=== PATIENT | female | born 1950 | race Caucasian/White ===

== ENCOUNTER 2021-06-17 02:20 | Outpatient (RCR) | payer MEDICARE, MEDICAID, SELFPAY ==
--- NOTE | 2021-06-17 15:30 | DI.RAD_ITS ---
Exam(s) XR PORTABLE CHEST AP POST LINE EXAM: XR PORTABLE CHEST AP POST LINE CLINICAL HISTORY: post picc. TECHNIQUE: 2D digital imaging was performed. COMPARISON: No exams were available for comparison FINDINGS: Heart size is normal. The mediastinum is not widened. Distal tip of the newly placed left PICC line is in good position in the lower SVC. Lungs are clear. No infiltrates nor pleural effusions. No ominous pulmonary nodules. No pneumothor ax. IMPRESSION: No acute pulmonary findings on this single AP portable view of the chest. Left PICC line is in good position in the lower SVC. DATA REPOSITORY: RADIATION DOSE DELIVERED: All CT scans at this facility use at least one of these dose optimization techniques: automated exposure control; mA and/or kV adjustment per patient size (includes targeted e xams where dose is matched to clinical indication); or iterative reconstruction.
== END 2021-06-23 23:59 | disposition home or self-care (01) ==
LOC: INF 02:20
PROVIDERS: Visit Provider Student in an Organized Health Care Education/Training Program
DX: K56.50 Intestinal adhesions [bands], unspecified as to partial versus complete obstruction (principal); Z45.2 Encounter for adjustment and management of vascular access device
CPT/HCPCS: 36573; 71045

== ENCOUNTER 2023-05-30 16:06 | Outpatient (CLI) | payer MEDICARE, SELFPAY ==
--- NOTE | 2023-05-30 15:42 | DI.RAD_ITS ---
Exam(s) XR STANDING ALIGNMENT EXAM: XR STANDING ALIGNMENT CLINICAL HISTORY: L knee pain TKR planning. TECHNIQUE: 2D digital imaging was performed. Standing AP views were performed from the pelvis throu gh the ankles. COMPARISON: CR XR KNEE COMPLETE MIN 4V LT from 02/14/2023 FINDINGS: BONES: No acute fracture is present. No bony destructive lesion is seen. Leg length discrepancy: There is a mild overall left leg length discrepancy with the right femoral he ad projecting a few millimeters superior to the left. JOINTS: Knees: The femoral tibial joint spaces are maintained. There is spurring from the femoral co ndyles and tibial plateaus. The ankle joints are unremarkable. The hip joints are unremarkable. SOFT TISSUE: Normal. IMPRESSION: Mild degenerative changes of both knees.. Mild overall leg length discrepancy. DATA REPOSITORY: RADIATION DOSE DELIVERED:
== END 2023-05-30 16:07 | disposition home or self-care (01) ==
LOC: DIORS 16:06
PROVIDERS: PCP Neuromusculoskeletal Medicine & OMM; Referring Provider Neuromusculoskeletal Medicine & OMM; Visit Provider Student in an Organized Health Care Education/Training Program
DX: M17.12 Unilateral primary osteoarthritis, left knee
CPT/HCPCS: 99203; 77073

== ENCOUNTER 2023-07-28 04:53 | Outpatient (CLI) | payer MEDICARE, SELFPAY ==
[2023-07-28 16:25] LABS: HCT 34.7 % (36.0-46.0); HGB 11.5 g/dL (11.2-15.7); MCH 28.9 pg (27.0-33.0); MCHC 33.1 % (32.0-36.0); MCV 87 fL (80-95); MPV 8.9 fL (8.0-11.0); Platelet Count 454 10^3/uL (130-400); RBC 3.98 10^6/uL (3.93-5.22); RDW 15.4 % (11.7-14.6); RDW-SD 49.1 fL; WBC 10.58 10^3/uL (4.4-10.8)
[2023-07-28 17:05] LABS: Anion Gap 9.1 mmol/L (3-11); BUN 12 mg/dL (7-18); CO2 26.9 mmol/L (21.0-32.0); CREATININE 0.7 mg/dL (0.55-1.02); Calcium 9.5 mg/dL (8.5-10.1); Chloride 101 mmol/L (98-107); Estimated GFR 92.41 (mL/min/1.73m2); Glucose 104 mg/dL (74-106); Potassium 3.7 mmol/L (3.5-5.1); Sodium 137 mmol/L (136-145)
== END 2023-07-28 04:54 | disposition home or self-care (01) ==
LOC: LBO 04:53
PROVIDERS: PCP Family Medicine; Visit Provider Student in an Organized Health Care Education/Training Program
DX: M17.12 Unilateral primary osteoarthritis, left knee (principal); Z01.818 Encounter for other preprocedural examination
CPT/HCPCS: 36415; 80048; 85027

== ENCOUNTER 2023-07-28 14:32 | Outpatient (CLI) | payer MEDICARE, SELFPAY ==
--- NOTE | 2023-07-28 14:51 | DI.RAD_ITS ---
Exam(s) XR KNEE LT 1V EXAM: XR KNEE LT 1V CLINICAL HISTORY: PRE OP. TECHNIQUE: 2D digital imaging was performed. COMPARISON: CR XR KNEE COMPLETE MIN 4V LT from 02/14/2023 FINDINGS: Single lateral view left knee: No fractures. There is advanced narrowing of the patellofemoral compartment. This is similar to out side images performed at [facility] on 02/14/2023. IMPRESSION: Advanced degenerative narrowing of the patellofemoral compartment. DATA REPOSITORY: RADIATION DOSE DELIVERED:
== END 2023-07-28 14:33 | disposition home or self-care (01) ==
LOC: DIORS 14:33
PROVIDERS: PCP Family Medicine; Visit Provider Physician Assistant
DX: M17.12 Unilateral primary osteoarthritis, left knee (principal)
CPT/HCPCS: 36415; 80048; 85027; 73560

== ENCOUNTER 2023-08-02 06:55 | Day surgery (SDC) | payer MEDICARE, SELFPAY ==
[2023-08-02] VITALS (10 sets, daily range): BP systolic 113–149; BP diastolic 56–87; PULSE 78–88; RESP 13–22; TEMP 36.5–37.3; O2SAT 94–100; BMI 17.9
--- NOTE | 2023-08-02 06:20 | W.ANESPRE ---
General Info Date of Service Date Performed: 08/02/23 Height: 5 ft Weight: 41.73 kg Body Mass Index (BMI): 17.9 Surgical Procedure: Operation Date: 08/02/23 09:25 Proposed Procedure Side Surgeon p Knee Total Arthroplasty, Cementless CR Left Kenrick Valencia MD Meds Allergies and Home Medications Allergies Allergy/AdvReac Type Severity Reaction Status Date / Time No Known Allergies Allergy Verified 08/02/23 07:55 Home Medication Medication Instructions Recorded albuterol sulfate 90 mcg/actuation 2 puff inhalation Q4H PRN 03/16/23 aerosol inhaler (Ventolin HFA) cyclobenzaprine 5 mg tablet 5 mg PO TID PRN 03/16/23 gabapentin 300 mg capsule 300 mg PO BID 03/16/23 levothyroxine 125 mcg capsule 125 mcg PO DAILY 03/16/23 lorazepam 2 mg tablet 2 mg PO BID PRN 03/16/23 montelukast 10 mg tablet 10 mg PO DAILY 03/16/23 (Singulair) omeprazole 40 mg capsule,delayed 40 mg PO DAILY 03/16/23 release ropinirole 2 mg tablet 4 mg PO DAILY 03/16/23 sumatriptan succinate 100 mg tablet 100 mg PO ONCE 03/16/23 trazodone 100 mg tablet 100 mg PO QHS PRN 03/16/23 vit 1 cap PO DAILY 03/16/23 C,E,zinc,Ck-zlmac-5-lutein-zeaxanthin 250 mg-2.5 mg-0.5 mg capsule ondansetron 4 mg disintegrating 4 mg PO Q6H 07/19/23 tablet acetaminophen 500 mg tablet 1,000 mg PO Q8H PRN pain #90 tabs 08/02/23 aspirin 81 mg tablet,delayed 81 mg PO BID 18 days #36 tabs 08/02/23 release celecoxib 200 mg capsule (Celebrex) 200 mg PO BID PRN #60 caps 08/02/23 dexamethasone 4 mg tablet 4 mg PO DAILY #2 tabs 08/02/23 docusate sodium 100 mg capsule 100 mg PO BID #30 caps 08/02/23 (Colace) oxycodone 5 mg tablet 5 mg PO Q4H PRN #18 tabs 08/02/23 rivaroxaban 10 mg tablet (Xarelto) 10 mg PO DAILY #12 tabs 08/02/23 Current Visit Medications: Current Medications Generic Name Dose Route Start Last Admin Trade Name Freq PRN Reason Stop Dose Admin Acetaminophen 1,000 mg 08/02/23 06:00 Acetaminophen 500 Mg Tab PO 08/02/23 16:00 PREOP BHAVYA Celecoxib 400 mg 08/02/23 06:00 Celecoxib 200 Mg Cap PO 08/02/23 16:00 PREOP BHAVYA Gabapentin 300 mg 08/02/23 06:00 Gabapentin 300 Mg Cap PO 08/02/23 16:00 PREOP BHAVYA Tranexamic Acid 1,000 mg/ 60 mls @ 360 mls/hr 08/02/23 06:00 Sodium Chloride IVPB 08/02/23 16:00 PREOP BHAVYA Ringer's Solution 1,000 mls @ 80 mls/hr 08/02/23 06:00 IV 08/31/23 23:59 INFUSION BHAVYA Cefazolin Sodium/Dextrose 2 gm in 50 mls @ 100 mls/hr 08/02/23 06:00 Ancef Duplex IVPB 08/31/23 23:59 PREOP BHAVYA IV Miscellaneous Supplies 1 each 08/02/23 06:00 Iv Access IV 08/31/23 23:59 DIRECTED BHAVYA Sodium Chloride 0 ml 08/02/23 06:00 Normal Saline Flush 10 Ml Syr IV 08/31/23 23:59 PRN PRN Sodium Chloride 0 ml 08/02/23 06:00 Normal Saline 10 Ml Vial IJ 08/31/23 23:59 DIRECTED PRN Sterile Water 0 ml 08/02/23 06:00 Water,Injection,Sterile 10 Ml Vial IJ 08/31/23 23:59 DIRECTED PRN PFSH Active Problems Active Problems: Problem Status Onset Code GERD (gastroesophageal reflux disease) K21.9 Primary osteoarthritis of left knee M17.12 Spinal cord stimulator status Z96.89 Nicotine dependence F17.200 Hypothyroidism E03.9 Essential thrombocythemia D47.3 Asthma J45.909 Medical History Medical History Acute bursitis of right shoulder Acute hip pain, bilateral Anemia Anisocytosis Anxiety Anxiety disorder Arthropathy of both sacroiliac joints Galeano involving less than 10% of body surface Chronic pain Closed fracture of left humerus of life partner Degenerative disc disease Dental caries Depression Difficulty speaking Disorder of sacroiliac joint Dizziness Dysphagia Elevated blood-pressure reading without diagnosis of hypertension Headache History of depression History of gastrointestinal disorder Hypothyroidism (acquired) Incisional hernia Insomnia Intestinal adhes w/ obst Knee pain, left Loss of appetite Low back pain Low blood pressure Migraine Migraine without aura Orthostatic hypotension Osteoporosis Perforation of tympanic membrane in adult Piriformis syndrome Piriformis syndrome of left side Postoperative hypothyroidism s/p radiation Postprocedural septic shock Radial neck fracture Restless legs Sciatica Sinusitis Smoker Sprain of left hip Sprain of left knee Thrombosis 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 Vitamin D deficiency Surgical History Surgical History H/O exploratory laparotomy pt estimates total of ~10 procedures dos 04/20/21, 07/30/21, 01/29/22 H/O ventral hernia repair dos 06/09/22 History of appendectomy History of delivery History of esophagogastroduodenoscopy (EGD) and closure of duodenal fistula (02/09/23) History of nasal septoplasty dos 09/01/04 History of splenectomy Lacerated liver History of vein stripping DOS: 05/14/16; 09/24/16 Hx of colonoscopy Hx of endoscopy 07/02/20 12/11/20 03/26/21 S/P insertion of spinal cord stimulator 02/11/17 Pt reports it was removed in 2019 Tobacco Smoking/Tobacco Use Status: Current-Occasional Tobacco Type: cigarettes Alcohol Alcohol Intake: current Alcohol intake frequency: holidays/special occasions only Substance Use Substance use: Never Substance use type: does not use Vital Signs and Lab Results Vital Signs Most Recent Vital Signs in EMR: Temp Pulse Resp BP Pulse Ox 36.6 C 88 22 149/87 H 97 08/02/23 07:44 08/02/23 07:44 08/02/23 07:44 08/02/23 07:44 08/02/23 07:44 Lab Results Blood Type / Crossmatch: No Data to Display Complete Blood Count: White Blood Count 10.58 10^3/uL (4.4-10.8) 07/28/23 16:18 Red Blood Count 3.98 10^6/uL (3.93-5.22) 07/28/23 16:18 Hemoglobin 11.5 g/dL (11.2-15.7) 07/28/23 16:18 Hematocrit 34.7 % (36.0-46.0) L 07/28/23 16:18 Platelet Count 454 10^3/uL (130-400) H 07/28/23 16:18 Complete Metabolic Panel: Sodium 137 mmol/L (136-145) 07/28/23 16:18 Potassium 3.7 mmol/L (3.5-5.1) 07/28/23 16:18 Chloride 101 mmol/L (98-107) 07/28/23 16:18 Carbon Dioxide 26.9 mmol/L (21.0-32.0) 07/28/23 16:18 BUN 12 mg/dL (7-18) 07/28/23 16:18 Creatinine 0.7 mg/dL (0.55-1.02) 07/28/23 16:18 Est GFR (CKD-EPI 2020) 92.41 (mL/min/1.73m2) 07/28/23 16:18 Calcium 9.5 mg/dL (8.5-10.1) 07/28/23 16:18 Glucose 104 mg/dL (74-106) 07/28/23 16:18 Liver Function Panel: No Data to Display Coagulation Panel: No Data to Display Cardiac Panel: No Data to Display Arterial Blood Gas: No Data to Display Venous Blood Gas: No Data to Display Pancreas Panel: No Data to Display Thyroid Panel: No Data to Display Infectious Disease: No Data to Display Blood Cultures: No Data to Display Toxicology Panel: No Data to Display Imaging and Studies Imaging and Studies Study information below may be from another EMR and interpreted by another provider. Please see original notes in EMR for more complete details. EKG Summary: 06/15: sinus Anesthesia Assessment and Plan Anesthesia History Personal History: No History of Anesthesia Complications Family History: No Family History of Anesthesia Complications Exercise Tolerance Exercise Tolerance: Metabolic Equivalents>4 Cardiac & Pulmonary Exam Cardiac Exam: Normal S1/S2 Heart Sounds Pulmonary Exam: Clear Bilateral Breath Sounds Implantable Cardiac Device Does patient have a Pacemaker or an ICD?: No Airway Exam Known Difficult Airway: No Mallampati Class: 2 Mouth Opening: Normal (> 3cm) Thyromental Distance: Greater than 3 cm Neck Range of Motion: Full ROM Neck Circumference: Normal Teeth Condition: Generalized Poor Dentition, Loose or Chipped and Removable Dentures/Plates Upper ASA Classification ASA Score: ASA 2 Emergency Case?: No NPO Status NPO Status: NPO Clears >2 hours, Solids >8 hours Anesthesia Plan Resuscitation Status: Full Code Anesthesia Technique: Spinal Anesthesia Airway Planned: Natural Airway Monitors Used: Standard Monitors Preoperative Comments:: 72 yo female for TKA. Sig PMHx: HTN, GERD (well controlled), hypothyroid, asthma, anxiety/depression, sciatica, septoplasty, neuro stimulator stimulator (was for abdominal pain, removed in 2019, was never a spinal cord stimulator), smoker, occ EtOH. Previous Anes: - removal neurostim, masked with 90 mm opa, tovar 2 grade 1.
--- NOTE | 2023-08-02 07:21 | DSE_ITS ---
Date of service: 08/02/23 Time of Service: 07:29 DS: Diagnosis Discharge Diagnosis (1) Primary osteoarthritis of left knee: Status: Chronic Discharge Plan Disposition Patient Disposition: Home Condition: Good Discharge Details Reason For Visit: Left knee DJD Attending Provider: Kenrick Valencia Primary Care Provider: GRACE ARREGUIN [place] Meds and New Rx's Prescriptions: New acetaminophen 500 mg tablet 1,000 mg PO Q8H PRN Qty: 90 0RF Rx Instructions: Take two tablets up to every 8 hours as needed for pain celecoxib [Celebrex] 200 mg capsule 200 mg PO BID PRNQty: 60 0RF Rx Instructions: Take one tablet twice daily for pain and inflammation docusate sodium [Colace] 100 mg capsule 100 mg PO BID Qty: 30 0RF dexamethasone 4 mg tablet 4 mg PO DAILY Qty: 2 0RF Rx Instructions: Take one tablet once daily for two days oxycodone 5 mg tablet 5 mg PO Q4H PRNQty: 18 0RF Rx Instructions: Take one tablet up to every 4 hours as needed for severe postoperative pain aspirin 81 mg tablet,delayed release (DR/EC) 81 mg PO BID 18 Days Qty: 36 0RF Rx Instructions: Take one tablet twice daily for a total of 18 days; start Aspirin after you have completed your Rivaroxaban Xarelto 10 mg tablet 10 mg PO DAILY Qty: 12 0RF Rx Instructions: Take one tablet daily for a total of 12 days Continued cyclobenzaprine 5 mg tablet 5 mg PO TID PRN gabapentin 300 mg capsule 300 mg PO BID levothyroxine 125 mcg capsule 125 mcg PO DAILY lorazepam 2 mg tablet 2 mg PO BID PRN omeprazole 40 mg capsule,delayed release(DR/EC) 40 mg PO DAILY vit C,E,Zn,Cd--bqf-zeax 250-2.5-0.5 mg capsule 1 cap PO DAILY ropinirole 2 mg tablet 4 mg PO DAILY montelukast [Singulair] 10 mg tablet 10 mg PO DAILY sumatriptan succinate 100 mg tablet 100 mg PO ONCE trazodone 100 mg tablet 100 mg PO QHS PRN albuterol sulfate [Ventolin HFA] 90 mcg/actuation HFA aerosol inhaler 2 puff inhalation Q4H PRN ondansetron 4 mg tablet,disintegrating 4 mg PO Q6H Discontinued acetaminophen 500 mg capsule 500 mg PO Q6H PRN tramadol 50 mg tablet 50 mg PO BID PRN Discharge Instructions Additional Instructions: Total Knee Discharge Instructions Activity: The most important activity is to walk and to work on gentle motion (both flexion and extension). You should try to take short walks a few times a day. It is important that when resting you work on keeping the knee straight. Avoid putting a pillow behind the knee as this will encourage flexion. Work on range of motion exercises as provided by Physical Therapy. - Start outpatient physical therapy within 2 weeks. - You should wear the HERBERT hose on both legs for 2 weeks. You may remove these at night. You may also use any compression sock in place of the HERBERT hose. - Utilize [employer] to review exercises, see videos on exercises and obtain basic information pertaining to your surgery and your recovery. Dressing: Remove the Gio wrap by 2 days after your surgery and put on the HERBERT stocking given to you from the hospital. Keep the surgical dressing (underneath the GIO wrap) in place for at least one week. After the first week it may be removed and replaced with light gauze and tape or nothing. The wound and dressing may get wet after 3 days but avoid soaking the dressing or otherwise it will need to be changed. Many people prefer covering the dressing with cling wrap (saran wrap) to minimize it from getting soaked. If it gets wet, just pat dry. If it starts to peel off then it will need to be changed. Medications: - You should take Tylenol and anti-inflammatory Celebrex as your primary pain control medications. If the Celebrex is too expensive or not covered, please call the office for another alternative (Advil/Ibuprofen or Naproxen/Aleve) - You have been prescribed a stronger pain medication Oxycodone for breakthrough pain, take as needed as prescribed. - You take a stomach acid reduction agent Omeprazole to help reduce stomach acid and reflux. - Continue with your baseline gabapentin - You will be taking Rivaroxaban 10 mg daily for a total of 12 days. After you complete this 12 day course you will then start to take Aspirin 81mg twice a day for DVT prevention. - You have also been prescribed Decadron to take to control post-operative nausea and pain. You will start this tomorrow. - If you have constipation you should take Colace (which has been prescribed) or Miralax (which is available [id number]). It takes most people 3-4 days to have a bowel movement. Follow-up: 2 weeks If you have any acute concerns or questions, please do not hesitate to contact the office at [phone]. You may contact Dr. Valencia with any questions after hours through the hospital at [phone] or on his cell phone at [phone]. Referrals: Kenrick Valencia MD [ [facility] STAFF PHYSICIAN] - Equipment/Supplies: Walker Activity:: Elevate Remove Dressings/Wound Care:: Do Not Remove Shower/Bathe:: Cover Diet:: As Tolerated DS: Summary Time Spent with Patient providing and/or coordinating discharge services: Less than 30 minutes Status at Discharge Functional status at discharge: uses cane/walker Overall status at discharge: patient is progressing back to baseline Mental Status: mental status grossly normal Speech and Movement: speech and movement normal Mood: congruent mood Affect: normal affect Exam Psych Mental Status: mental status grossly normal Speech and Movement: speech and movement normal Mood: congruent mood Affect: normal affect DS: Data Vitals/I&O Vitals and I&O: Intake & Output 08/01/23 08/01/23 08/02/23 11:59 23:59 11:59 Weight 91 lb 15.982 oz PFSH All Active Problems GERD (gastroesophageal reflux disease) (Chronic) Primary osteoarthritis of left knee (Chronic) Spinal cord stimulator status (Acute) Nicotine dependence (Acute) Hypothyroidism (Chronic) Essential thrombocythemia (Acute) Asthma (Chronic) Medical History Acute bursitis of right shoulder Acute hip pain, bilateral Anemia Anisocytosis Anxiety Anxiety disorder Arthropathy of both sacroiliac joints Galeano involving less than 10% of body surface Chronic pain Closed fracture of left humerus of life partner Degenerative disc disease Dental caries Depression Difficulty speaking Disorder of sacroiliac joint Dizziness Dysphagia Elevated blood-pressure reading without diagnosis of hypertension Headache History of depression History of gastrointestinal disorder Hypothyroidism (acquired) Incisional hernia Insomnia Intestinal adhes w/ obst Knee pain, left Loss of appetite Low back pain Low blood pressure Migraine Migraine without aura Orthostatic hypotension Osteoporosis Perforation of tympanic membrane in adult Piriformis syndrome Piriformis syndrome of left side Postoperative hypothyroidism s/p radiation Postprocedural septic shock Radial neck fracture Restless legs Sciatica Sinusitis Smoker Sprain of left hip Sprain of left knee Thrombosis 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 Vitamin D deficiency Surgical History H/O exploratory laparotomy pt estimates total of ~10 procedures dos 04/20/21, 07/30/21, 01/29/22 H/O ventral hernia repair dos 06/09/22 History of appendectomy History of delivery History of esophagogastroduodenoscopy (EGD) and closure of duodenal fistula (02/09/23) History of nasal septoplasty dos 09/01/04 History of splenectomy Lacerated liver History of vein stripping DOS: 05/14/16; 09/24/16 Hx of colonoscopy Hx of endoscopy 07/02/20 12/11/20 03/26/21 S/P insertion of spinal cord stimulator 02/11/17 Pt reports it was removed in 2019 Social History (Updated 07/11/23 @ 11:21 by Luna Fernández) Smoking/Tobacco Use Status: Current-Occasional Tobacco Type: cigarettes Smoking risk assessment performed?: Yes Alcohol Intake: current Alcohol Intake frequency: holidays/special occasions only Drug use: Never Substance use type: does not use Housing: house Do you feel safe at home: Yes Do you feel safe in your relationship?: Yes Time Spent with Patient Time Spent with Patient: <45 minutes Time was spent: ordering medications,tests, procedures, referring, communicating with other health hearing healthcare practitioner and care coordination
[2023-08-02] MEDS: Acetaminophen 500 MG TAB 1000 MG PO (08:00)
[2023-08-02] MEDS: Celecoxib 200 MG CAP 400 MG PO (08:00)
[2023-08-02] MEDS: Gabapentin 300 MG CAP PO (08:00)
[2023-08-02] MEDS: Lactated Ringers 1,000 ML 80 ML IV (08:15)
[2023-08-02] MEDS: ceFAZolin 2 GM/50 ML BAG IVPB (08:49)
--- NOTE | 2023-08-02 08:58 | W.ANESNERVE ---
Nerve Block Single Injection Procedure Date and Time Date Performed: 08/02/23 Procedure Start: 08:28 Location Where Procedure Performed Procedure Location: Day Surgery Unit Reason Performed: Postoperative Analgesia Requesting Provider: Kenrick Valencia Timeout Performed Timeout Performed: Yes Monitoring Used ECG, Blood Pressure and SpO2 Sterility Sterility: Hand Hygiene, Surgical Cap, Surgical Mask and Sterile Gloves Sedation Given During Procedure Sedation Given (Indicate Dose Given): Versed IV (0.5 + 0.5 + 0.5 + 0.5) Dose:: 2 mg Patient Mental Status Patient Mental Status: Sedate with meaningful communication Nerve Block 1st Nerve Block: Laterality: Left Block Type: Adductor Canal Ultrasound Image Saved?: Yes Needle / Catheter Used: 100mm SonoPlex II Local Anesthetic Bolus (Indicate Dose Given): Lidocaine used for local infiltration of skin, Injected in 3-5ml increments after negative blood aspiration and Bupivacaine 0.25% Dose:: 7 mL Additives (Indicate Dose Given): None Ultrasound: Sterile probe cover and gel used Nerve Stimulator: Supplement to Ultrasound use and No twitch or parasthesia noted < 0.5 mA Paresthesia: None Procedure Tolerated: No Complications Procedure Outcome: Successful Performed By: Bon Vizcaino 2nd Nerve Block: Laterality: Left Block Type: Other (anterior femoral cutaneous) Ultrasound Image Saved?: No Needle / Catheter Used: 100mm SonoPlex II Local Anesthetic Bolus (Indicate Dose Given): None and Bupivacaine 0.25% Dose:: 6 mL Additives (Indicate Dose Given): None Ultrasound: Sterile probe cover and gel used Nerve Stimulator: Supplement to Ultrasound use and No twitch or parasthesia noted < 0.5 mA Paresthesia: None Procedure Tolerated: No Complications Procedure Outcome: Successful Procedure Comment: same insertion as adductor. Performed By: Bon Vizcaino
--- NOTE | 2023-08-02 11:09 | W.ANESPOSTOP ---
Postoperative Evaluation Date, Time and Location Date Performed: 08/02/23 Time Performed: 11:09 Patient Location: Day Surgery Unit Vital Signs Most Recent Imported Vital Signs: Most Recent Vital Signs Temp Pulse Resp BP Pulse Ox 36.5 C 87 16 119/76 99 08/02/23 11:00 08/02/23 11:00 08/02/23 11:00 08/02/23 11:00 08/02/23 11:00 Pain Score Most Recent Pain Score: Most Recent Pain Score Pain Level 4 08/02/23 11:00 Assessment Mental Status: Awake (Alert & Oriented to Patient Baseline) Airway and Respiratory Function: Patent airway with normal (patient baseline) respiratory exam Cardiovascular Function: Hemodynamically Stable Hydration Status: Adequately Hydrated Nausea & Vomiting: No Nausea or Vomiting Pain: Pain is tolerable per patient Peripheral Nerve Block: Regional nerve block not resolved at time of post operative discharge
[2023-08-02] MEDS: oxyCODONE 5 MG TAB PO (11:17)
--- NOTE | 2023-08-02 12:30 | IN_ITS ---
Date of service: 08/02/23 Time of Service: 12:30 PT Notes Visit Reasons: Left knee DJD Physical Therapy Day Surgery Initial Evaluation Date: 08/02/2023 Referring Doctor: FIDEL Boyce PT Orders: PT CONSULT: S/p Ortho Surgery Precautions: WBAT on left LE with AD. Patient Profile/Admitting Diagnosis: Patient is a 72-year-old female with primary unilateral osteoarthritis of the left knee and status post left total knee arthroplasty on postoperative day 0. PMHX: Medical History?(Updated 07/28/23 @ 15:04 by Miranda Juárez) Acute bursitis of right shoulder Acute hip pain, bilateral Anemia Anisocytosis Anxiety Anxiety disorder Arthropathy of both sacroiliac joints Galeano involving less than 10% of body surface Chronic pain Closed fracture of left humerus of life partner Degenerative disc disease Dental caries Depression Difficulty speaking Disorder of sacroiliac joint Dizziness Dysphagia Elevated blood-pressure reading without diagnosis of hypertension Headache History of depression History of gastrointestinal disorder Hypothyroidism (acquired) Incisional hernia Insomnia Intestinal adhes w/ obst Knee pain, left Loss of appetite Low back pain Low blood pressure Migraine Migraine without aura Orthostatic hypotension Osteoporosis Perforation of tympanic membrane in adult Piriformis syndrome Piriformis syndrome of left side Postoperative hypothyroidism s/p radiationPostprocedural septic shock Radial neck fracture Restless legs Sciatica Sinusitis Smoker Sprain of left hip Sprain of left knee Thrombosis 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 Vitamin D deficiency Surgical History?(Updated 07/28/23 @ 15:03 by Miranda Juárez) H/O exploratory laparotomy pt estimates total of ~10 procedures dos 04/20/21, 07/30/21, 01/29/22 H/O ventral hernia repair dos 06/09/22 History of appendectomy History of delivery History of esophagogastroduodenoscopy (EGD) and closure of duodenal fistula (02/09/23) History of nasal septoplasty dos 09/01/04 History of splenectomy Lacerated liverHistory of vein stripping DOS: 05/14/16; 09/24/16 Hx of colonoscopy Hx of endoscopy 07/02/20 12/11/20 03/26/21 S/P insertion of spinal cord stimulator 02/11/17 Pt reports it was removed in 2019 Social History/Home Situation: Lives with daughter Mirtha in a private home with no steps to enter but has 3 steps leading onto a landing and another 8 steps that brings her to her bathroom upstairs. Independent without an assistive device indoors. Occasionally uses single-point cane for outdoors. Daughter will be with patient as she recovers at home. Equipment Owned/DME: [employer], [facility] Subjective: What a difference! Patient is amazed at how much she is able to walk without hurting. Per patient Nurse Annette patient has had 10 mg of Oxycodone prior to PT arrival. Did report pain in the inner side of knee with small range straight leg raise. Objective: General Observation: Supine in bed. Gio wraps to left LE. Cryocuff to left knee. TDS on the right leg. Daughter Mirtha present in room throughout evaluation. Mental Status: Alert and oriented x4 Pain: Denies ROM: Right Lower Extremity: Hip flexion WFL. Hip abduction WFL. Knee flexion WFL. Ankle dorsiflexion WFL. Ankle plantarflexion WFL. Left Lower Extremity: Hip flexion WFL. Hip abduction WFL. Knee flexion about 45 degrees to 90 degrees. Knee extension -45 degrees. Ankle dorsiflexion WFL. Ankle plantarflexion WFL. Strength: Right Lower Extremity: Hip flexors 5/5. Hip abductors 5/5. Knee flexors 5/5. Knee extensors 5/5. Ankle dorsiflexors 5/5. Ankle plantarflexors 5/5. Left Lower Extremity:Hip flexors 4/5. Hip abductors 4/5. Knee flexors 3-/5. Knee extensors 3-/5. Ankle dorsiflexors 5/5. Ankle plantarflexors 5/5. Sensation: Intact as to pain and light pressure in bilateral lower extremities Bed Mobility/Transfers: Supine to sit standby assist, minimal cueing to use right rail Sit to stand contact-guard assist, minimal cueing provided to use both hands to push up from edge of bed on ascent Stand to sit standby assist standby assist, minimal cueing provided to reach behind for armrests Bed to chair standby assist standby assist, minimal cueing provided to use both hands to push up from armrests Gait: Facilitated safe for safe and correct performance of level surface ambulation with patient requiring minimal verbal cueing for movement sequence, AD management, and limb advancement. No report of increased pain. No loss of balance. No shortness of breath. Good quad activation on L. Stairs: Guided patient with safe navigation of 6 x 4 inch steps and 4 x 6 inch steps while holding onto bilateral rails with step to gait pattern requiring only contact-guard assist and minimal verbal cueing for correct technique. Balance: Static Sitting: Normal Dynamic Sitting: Normal Static Standing: Fair Dynamic Standing: Fair Special Tests: Mobility Limitations Standardized Measure [facility] AM-PAC 6 clicks Basic Mobility Inpatient Short Form: Raw Score: 23 CMS Score: 11% deficit Informed Consent/Education: Patient instructed in purpose of PT consult. Packet containing TKA exercise protocol has been given to patient. THERA ACT: Patient requires the use of a front wheel walker for all mobility ADL performance to maximize independence and reduce fall risk. Trained patient with correct performance of exercises below to maximize motor control, joint flexibility, soft tissue extensibility of the L knee knee musculature. Access Code: [email or web address] URL: [email or web address] Date: 05/17/2023 Prepared by: Myla Mayo Exercises - Supine Quad Set - 1 x daily - 7 x weekly - 1 sets - 10 reps - 5 hold - Supine Heel Slide - 1 x daily - 7 x weekly - 1 sets - 10 reps - 5 hold - Supine Ankle Pumps - 1 x daily - 7 x weekly - 1 sets - 10 reps - 5 hold - Small Range Straight Leg Raise - 1 x daily - 7 x weekly - 1 sets - 10 reps - 5 hold - Seated March - 1 x daily - 7 x weekly - 1 sets - 10 reps - 5 hold Assessment: Patient requires the use of front wheeled walker for all mobility ADL performance to maximize independence and reduce fall risk. Patient presents with clinical signs and symptoms consistent with current/admitting diagnoses that have resulted to mobility limitations, gait instability, generalized weakness, and impairment of motor control as demonstrated by the following impairment level findings: 1. Decreased strength to left knee major muscle groups 2. Impaired standing balance 3. Limitation of joint range of motion in left knee Impairments are contributing to the following functional limitations: 1. Inability to safely ambulate without assistive device 2. Increase completion time for mobility ADL performance 3. Increased fall risk Patient is assessed as a 46150 moderate complexity based on the following: History: -72year-old [] with impairment level findings, functional limitations, and past medical history as indicated above Examination: Demonstrable impairment in strength, balance, and mobility level with underlying impairments and functional limitations as documented above Presentation: Evolving Decision Makin moderate complexity Goals: N/A. PT evaluation and 1-2 treatment sessions only for functional mobility training using recommended AD and for HEP instruction. Plan of Care/Treatment Plan: N/A. PT evaluation and 1-2 treatment session only for functional mobility training using recommended AD and for HEP instruction. DISCHARGE RECOMMENDATIONS: Home when medically cleared by orthopedic surgeon. Recommend outpatient PT services in order to optimize functional mobility outcomes and facilitate return to independent community ambulation without an assistive device. TREATMENT CODE/TIME: 9716 2 x 20 minutes for 1 unit, 9753 0 x 26 minutes for 2 units beginning at 12:30 PM. Thank you for the opportunity to participate in the care of this patient. Myla Mayo PT, DPT, CLT [facility] [place], [place]
--- NOTE | 2023-08-02 17:53 | ROE_ITS ---
Date of service: 08/02/23 Time of Service: 08:45 Operative Note Operative Note DATE OF PROCEDURE: 08/02/23 PRE-OP DIAGNOSIS: Left Knee Osteoarthritis POST-OP DIAGNOSIS: same PROCEDURE: Left Total Knee Replacement SURGEON: Kenrick Valencia BUSINESS OBJECTS CONSULTANT: Miranda Juárez ANESTHESIA TYPE: Spinal Refer to Anesthesia Record ESTIMATED BLOOD LOSS: 100 PATHOLOGY: none sent TOURNIQUET TIME: 0 COMPLICATIONS: None Patient was transported to: PACU Patient's condition: stable Implants: 1. Depuy Attune Cementless Cruciate Retaining Femoral Component, Size 4 2. Depuy Attune Cementless Fixed Bearing Tibial Component, Size 4 3. Depuy Attune 4x8 CR/FB Poly 4. Depuy Attune Patellar Component, Size 32 Indications: I have seen Alix in clinic for symptoms of knee arthritis, confirmed with radiographic findings. She has exhausted nonoperative methods and was having significant limitations in daily function and desired better function and less pain. I discussed the technical details of a knee replacement. I explained the risks of the procedure to include, but not limited to, bleeding, infection, pain, stiffness, fracture, damage to nerves and vessels, damage to muscles and tendons, loosening, need for repeat procedure, blood clot and cardiopulmonary demise. Despite these risks, Alix elected to proceed. Findings: There was significant signs of arthritis throughout the knee, most notably of the trochlea and patella. Procedure Description: Alix was greeted in the preoperative holding area where the correct side was identified and marked. The consent was reviewed with the patient and signed. The history and physical was updated. All questions were answered. Preoperative medications were administered: Acetaminophen 1000mg, Celebrex 400mg, and Gabapentin 300mg. An adductor canal block was then administered by the anesthesia team in the PACU. She was taken back to the operating room. A spinal anesthestic was then administered. The patient was placed into the supine position on the operating room table. A nonsterile tourniquet was placed high onto the leg but only used for cementing. Posts were placed for positioning during the procedure. All bony prominences were well padded. Prophylactic antibiotics in the form of Cefazolin were administered. 1g of Tranxemic Acid was given intravenously within 30 minutes of incision. The left leg was then prepped with Chloraprep and draped in a standard fashion with impervious stockinette. A second prep with Chloraprep was performed prior to application of Iodine impregnated skin protection. A timeout to confirm correct identity, side and site, procedure, allergies, anesthesia, and medical concerns was performed. With the knee in some flexion, a midline incision was made overlying the knee. Full thickness skin flaps were raised once the extensor mechanism was encountered. These were raised medially and laterally. Any bleeding was controlled with electrocautery. Once the extensor mechanism was fully exposed, a medial parapatellar arthrotomy was performed in a flexed position. All bleeding from the arthrotomy and the geniculate arteries was coagulated. A medial subperiosteal peel was performed with electrocautery to the midcoronal plane. The fat pad was removed while keeping the patellar tendon protected. The anterior distal femur synovium was removed for later visualization. The ACL and PCL were resected and the anterior horn of the lateral meniscus was transected. The knee was then flexed with the patella everted. Using a step drill, and based on preoperative templating, the femoral canal was entered. This was done with a step drill without any difficulty. The intramedullary distal femoral cut guide was inserted, set to a 6 degree valgus cut and 9mm cut thickness. The distal femoral cut guide was then held in position and pinned. With the soft tissues protected, the distal cut was performed. This was passed over a few times to ensure a planar cut. I then turned attention to the tibia. The extramedullary guide was placed onto the leg. The distal aspect was slid medial to adjust for position of center of ankle and stay in line with shaft of the tibia. Approximately 3-5 degrees of posterior slope was kept in the proximal cutting guide. The center of the guide was aligned with the PCL. The stylus was used to assess cut thickness. The medial side, most involved side, was set for a 4mm cut. This was then held in position and pinned into place with 2 additional pins and a cross pin for stability. The medial and lateral collateral ligaments were protected and the cut was performed. With this completed, it was assessed and noted to be of appropriate dimensions. The guide was removed. A spacer block was inserted and the knee was brought into extension. The 8mm spacer block provided full extension, without hyperextension and with stability of both the medial and lateral collateral ligaments was assessed. The pins from the femur and the tibia were then removed. The distal femur was then sized. The anterior stylus was placed onto the lateral ridge of the anterior femur. This indicated a size 4 femur. The external rotation of the guide was adjusted to 3 degrees to match the epicondylar axis, perpendicular to Myles?s line. The 4-in-1 cutting guide was the placed. The posterior medial femur cut was evaluated and appeared of good thickness. The spacer block was inserted underneath the cutting guide and stability was confirmed in 90 degrees of flexion. An vivien wing was used to confirm appropriate position of the anterior cut to avoid notching. This cutting guide was ensured to be flush on the cut surface and then pinned into place with headed pins. While protecting the soft tissues, quad tendon, and collateral ligaments, the anterior and posterior cuts were performed with a saw. The central two pins were removed and the posterior and anterior chamfers were cut next. The notch-cutting guide was placed. This was pinned to lateralize the femoral component as much as possible while keeping it flush on the cut surface. This was then pinned into position. A reciprocating saw was used to make the notch cut. A rasp smoothed the cut surfaces. The medial and lateral menisci were removed. A trial femoral component was then inserted, impacted down to the cut surfaces, and the lug holes were drilled. A provisional trial tibial component was placed and the knee was brought through range of motion. The polyethylene was trialed until there was good flexion and extension with excellent stability to the medial and lateral collaterals. The patella was tracking without thumbs. A size 8mm polyethylene component provided the best range of motion and stability with less than 2mm gapping with medial and lateral stress and full extension without significant hyperextension. The tibial cut surface was fully exposed. The tibia was then sized as a 4. The tibia had been previously marked during trialing to correspond to the center of the tibial component to help with rotation. The trial was aligned to this liya, approximately rotated to the medial 1/3rd of the tibial tubercle. The trial was pinned into place. The tibia was prepared with a reamer and a keel punch and lug holes. The knee was then brought into extension and the patella was measured as 17mm. Using the patellar clamp and cut guide, this was resected to a flat surface with at least 13mm of thickness remaining. The size 32 patella fit the best. This was oriented and then clamped into position. The lugs were drilled. The trial components were removed. The final components were opened on the back table. The periosteal and capsular tissues, especially posteriorly, around the knee were then systematically injected with a periarticular cocktail consisting of 246mg of Ropivacaine, 0.5mg of Epinephrine, 0.08mg of Clonidine, and 30mg of Ketorolac, diluted to 100cc. On the back table, with the implants opened, the cement was mixed. One batch of high viscosity cement was prepared with vacuum assistance. After the cement was ready a small amount was placed on the cut surface of the patella and the patellar button was clamped into position and held. While the cement was hardening, the cementless knee components were placed. Starting with the tibial component, the tibia was subluxed anteriorly and the lug holes of the component were lined up. The tibia was then impacted with an impactor and mallet until the tibial component was in contact with the tibia. The final polyethylene component was inserted. Then, the femoral component was inserted. The lug holes were aligned and the component was impacted into position. The knee was irrigated with Surgiphor Betadine solution. This was allowed to sit in the knee for 3 minutes and then it was irrigated out with saline. After the cement had finally cured, approximately 15min, the clamp was removed from the patella and the knee was taken through range of motion. The patella was tracking with a no-thumbs technique. The capsule was then reapproximated with a No. 1 Vicryl at multiple locations. The capsule was finally closed with a No. 2 Stratafix, barbed suture. The second dosing of 1g TXA was started. Deep tissues were then reapproximated with 0 Vicryl and 2-0 Vicryl. The skin was closed with a running 3-0 Monocryl in a subcuticular fashion. This was reinforced with skin glue. A Mepilex silver dressing was applied along with a [id number] PHILLIP wrap. A CryoCuff was applied. Alix was transferred to the hospital bed without difficulty an suffering no apparent complication. She has a good prognosis. Physical therapy will start today and without restrictions, weight-bearing as tolerated. Rivaroxaban will be used for DVT prophylaxis.
== END 2023-08-02 13:35 | disposition home or self-care (01) ==
PROVIDERS: PCP Family Medicine; Visit Provider Student in an Organized Health Care Education/Training Program
PROC: (CPT 27447; principal; 2023-08-02 09:15)
DX: M17.12 Unilateral primary osteoarthritis, left knee (principal); D64.9 Anemia, unspecified; F41.9 Anxiety disorder, unspecified; G89.29 Other chronic pain; J21.9 Acute bronchiolitis, unspecified; E03.9 Hypothyroidism, unspecified; F17.210 Nicotine dependence, cigarettes, uncomplicated; D47.3 Essential (hemorrhagic) thrombocythemia; J45.909 Unspecified asthma, uncomplicated
CPT/HCPCS: 27447; C1776; 76942; 97162; 97530; J0690; J1100; J2250; J2371; J2405

== ENCOUNTER → 2023-08-15 14:49 | Outpatient (BNVA) | payer MEDICARE, SELFPAY | PROVIDERS: PCP Family Medicine; Referring Provider Neuromusculoskeletal Medicine & OMM; Visit Provider Student in an Organized Health Care Education/Training Program | DX: Z47.1 Aftercare following joint replacement surgery (principal); Z96.652 Presence of left artificial knee joint ==

== ENCOUNTER 2023-09-12 13:44 | Outpatient (CLI) | payer MEDICARE, SELFPAY ==
--- NOTE | 2023-09-12 10:00 | DI.RAD_ITS ---
Exam(s) XR KNEE LT 1V XR STANDING ALIGNMENT EXAM: XR STANDING ALIGNMENT CLINICAL HISTORY: S/P L TKA. TECHNIQUE: 2D digital imaging was performed. Standing AP views were performed from the pelvis throu gh the ankles. COMPARISON: CR XR STANDING ALIGNMENT from 05/30/2023 CR XR KNEE LT 1V from 07/28/2023 CR XR KNEE LT 1V from 09/12/2023 FINDINGS: BONES: No acute fracture is present. No bony destructive lesion is seen. Leg length discrepancy: JOINTS: Knees: Total left knee prosthesis is unremarkable. Right knee femoral tibial joint spaces ar e maintained. The ankle joints are unremarkable. The hip joints are unremarkable. SOFT TISSUE: Anterior soft tissue swelling at the left knee. IMPRESSION: left total knee prosthesis with satisfactory alignment No significant leg length discrepancy. DATA REPOSITORY: RADIATION DOSE DELIVERED:
--- NOTE | 2023-09-12 10:00 | DI.RAD_ITS ---
Exam(s) XR HIP LT COMPLETE AP PELVIS EXAM: XR HIP LT COMPLETE AP PELVIS CLINICAL HISTORY: LEFT HIP PAIN. TECHNIQUE: 2D digital imaging was performed. Two views. COMPARISON: No exams were available for comparison FINDINGS: BONES: No acute fracture is present. No bony destructive lesion is seen. JOINTS: No dislocation present. The joint spaces are maintained. SOFT TISSUE: Normal. IMPRESSION: Unremarkable radiographs of the left hip. Unremarkable radiographs of the pelvis DATA REPOSITORY: RADIATION DOSE DELIVERED:
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
--- OUTSIDE RECORDS SUMMARY | 2023-09-12 13:47 | XMS_ITS | Continuity of Care Document ---
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 multivitamin with minerals (PreserVision AREDS Lutein oral capsule) 1 caps Oral (given by mouth) Every day Unchanged nicotine (nicotine 14 mg/ 24 hr transdermal film, extended release) 1 patch(es) Transdermal (apply on the skin) Every day Unchanged omeprazole (omeprazole 40 mg oral delayed release capsule) 1 Capsules Oral (given by mouth) Every day Unchanged ondansetron (ondansetron 4 mg oral tablet, disintegrating) 1 tab Oral (given by mouth) Every 6 hours as needed for other (see comment) as needed ?? Unchanged rOPINIRole (rOPINIRole 2 mg oral tablet) 2 tab Oral (given by mouth) Every day Unchanged sertraline (sertraline 25 mg oral tablet) TAKE ONE TABLET BY MOUTH EVERY DAY ?? Unchanged SUMAtriptan (SUMAtriptan 100 mg oral tablet) See instructions TAKE ONE TABLET BY MOUTH TWICE A DAY NEEDED FOR MIGRAINE HEADACHE ?? Unchanged traMADol (traMADol 50 mg oral tablet) 1 tab Oral (given by mouth) Every 12 hours as needed for as needed for pain Left knee pain Headache Duration: 28 Days Unchanged traZODone (traZODone 100 mg oral tablet) 1 tab Oral (given by mouth) Every night at bedtime Pharmacy Information [facility]: [address], [place] [id number] [phone] Education Materials Atelectasis, Adult Atelectasis is a collapse of air sacs in the lungs (alveoli). The condition causes all or part of alung to collapse. Atelectasis is a common problem after surgery. Its severity depends on the size of the area of lung tissue involved and on the underlying cause. When severe, it can lead to shortness of breath and heart problems. Atelectasis can develop suddenly or over a long period of time. Atelectasis that develops over a long period (chronic atelectasis) often leads to infection, scarring, and other problems. What are the causes? The following factors may make you more likely to develop this condition: ? Having had surgery on the chest or abdomen. ? An injury or health problem that makes taking deep breaths difficult or painful, such as broken ribs. ? Certain infections or diseases, such as pneumonia or cystic fibrosis. ? Taking medicines, such as sedatives, that decrease the rate of your breathing or how deeply you breathe. ? Being in bed or lying flat for long periods of time. What are the signs or symptoms? In many cases, there are no symptoms. When symptoms do occur, they may include: ? Shortness of breath. ? A cough. ? Rapid breathing. How is this diagnosed? This condition may be diagnosed based on: ? Your symptoms and medical history. ? A physical exam. ? A chest X-ray. Sometimes, other imaging tests are needed to diagnose the condition. How is this treated? Treatment for this condition depends on the cause. Treatment may involve: ? Getting out of bed and walking around. ? Coughing. Coughing helps loosen mucus in the airway. ? Deep breathing exercises. An incentive spirometer is a device that is used to help you take deep breaths. ? Positive pressure breathing. This is a form of breathing assistance in which air is forced into thelungs when you breathe in (inhale). ? Chest physiotherapy. This is a treatment to help loosen and clear mucus from the airways. It is done by clapping the chest. Follow these instructions at home: ? Take qdul-xuk-xjzbaok and prescription medicines only as told by your health care provider. ? Stay as active as possible as told by your health care provider. ? Make sure to lie on your unaffected side when you are lying down. For example, if you have atelectasis in your left lung, lie on your right side. This will help mucus drain from your airway. ? Cough and take deep breaths often. Use your incentive spirometer as directed by your health care provider. ? Do not use any products that contain nicotine or tobacco, such as cigarettes, e- cigarettes, and chewing tobacco. If you need help quitting, ask your health care provider. ? Keep all follow-up visits as told by your health care provider. This is important. Contact a health care provider if: ? You have symptoms for more than 2???3 days. Get help right away if: ? You have severe chest pain. ? You cough up blood. ? You have a fever. ? Your symptoms suddenly get worse. Summary ? Atelectasis is a collapse of air sacs in the lungs (alveoli). The condition causes all or part of alung to collapse. ? Cough and take deep breaths often. Use your incentive spirometer as directed by your health care provider. ? Stay as active as possible as told by your health care provider. ? Get help right away if your symptoms suddenly get worse. This information is not intended to replace advice given to you by your health care provider. Make sure you discuss any questions you have with your health care provider. Document Revised: 09/17/2020 Document Reviewed: 09/17/2020 [email or web address] Patient Education ?? 2021 [email or web address] Head Injury, Adult There are many types of head injuries. They can be as minor as a small bump. Some head injuries canbe worse. Worse injuries include: ? A strong hit to the head that shakes the brain back and forth, causing damage (concussion). ? A bruise (contusion) of the brain. This means there is bleeding in the brain that can cause swelling. ? A cracked skull (skull fracture). ? Bleeding in the brain that gathers, gets thick (makes a clot), and forms a bump (hematoma). Most problems from a head injury come in the first 24 hours. However, you may still have side effects up to 7???10 days after your injury. It is important to watch your condition for any changes. Youmay need to be watched in the emergency department or urgent care, or you may need to stay in the hospital. What are the causes? There are many possible causes of a head injury. A serious head injury may be caused by: ? A car accident. ? Bicycle or motorcycle accidents. ? Sports injuries. ? Falls. ? Being hit by an object. What are the signs or symptoms? Symptoms of a head injury include a bruise, bump, or bleeding where the injury happened. Other physical symptoms may include: ? Headache. ? Feeling like you may vomit (nauseous) or vomiting. ? Dizziness. ? Blurred or double vision. ? Being uncomfortable around bright lights or loud noises. ? Shaking movements that you cannot control (seizures). ? Feeling tired. ? Trouble being woken up. ? Fainting or loss of consciousness. Mental or emotional symptoms may include: ? Feeling grumpy or cranky. ? Confusion and memory problems. ? Having trouble paying attention or concentrating. ? Changes in eating or sleeping habits. ? Feeling worried or nervous (anxious). ? Feeling sad (depressed). How is this treated? Treatment for this condition depends on how severe the injury is and the type of injury you have. The main goal is to prevent problems and to allow the brain time to heal. Mild head injury If you have a mild head injury, you may be sent home, and treatment may include: ? Being watched. A responsible adult should stay with you for 24 hours after your injury and check onyou often. ? Physical rest. ? Brain rest. ? Pain medicines. Severe head injury If you have a severe head injury, treatment may include: ? Being watched closely. This includes staying in the hospital. ? Medicines to: ? Help with pain. ? Prevent seizures. ? Help with brain swelling. ? Protecting your airway and using a machine that helps you breathe (ventilator). ? Treatments to watch for and manage swelling inside the brain. ? Brain surgery. This may be needed to: ? Remove a collection of blood or blood clots. ? Stop the bleeding. ? Remove a part of the skull. This allows room for the brain to swell. Follow these instructions at home: Activity ? Rest. ? Avoid activities that are hard or tiring. ? Make sure you get enough sleep. ? Let your brain rest. Do this by limiting activities that need a lot of thought or attention, such as: ? Watching TV. ? Playing memory games and puzzles. ? Job-related work or homework. ? Working on the computer, social media, and texting. ? Avoid activities that could cause another head injury until your doctor says it is okay. This includes playing sports. Having another head injury, especially before the first one has healed, can be dangerous. ? Ask your doctor when it is safe for you to go back to your normal activities, such as work or school. Ask your doctor for a btvo-cd-osle plan for slowly going back to your normal activities. ? Ask your doctor when you can drive, ride a bicycle, or use heavy machinery. Do not do these activities if you are dizzy. Lifestyle ? Do not drink alcohol until your doctor says it is okay. ? Do not use drugs. ? If it is harder than usual to remember things, write them down. ? If you are easily distracted, try to do one thing at a time. ? Talk with family members or close friends when making important decisions. ? Tell your friends, family, a trusted co-worker, and workers compensation attorney about your injury, symptoms, and limits (restrictions). Have them watch for any problems that are new or getting worse. General instructions ? Take ucyx-fdl-trvomtl and prescription medicines only as told by your doctor. ? Have someone stay with you for 24 hours after your head injury. This person should watch you for any changes in your symptoms and be ready to get help. ? Keep all follow-up visits as told by your doctor. This is important. How is this prevented? Work on your balance and strength. This can help you avoid falls. ? Wear a seat belt when you are in a moving vehicle. ? Wear a helmet when you: ? Ride a bicycle. ? Ski. ? Do any other sport or activity that has a risk of injury. ? If you drink alcohol: ? Limit how much you use to: ? 0???1 drink a day for non women. ? 0???2 drinks a day for men. ? Be aware of how much alcohol is in your drink. In the [place] one drink equals one 12 oz bottle of beer (355 mL), one 5 oz glass of wine (148 mL), or one 1?? oz glass of hard liquor (44 mL). ? Make your home safer by: ? Getting rid of clutter from the floors and stairs. This includes things that can make you trip. ? Using grab bars in bathrooms and handrails by stairs. ? Placing non-slip mats on floors and in bathtubs. ? Putting more light in dim areas. Where to find more information ? Centers for Disease Control and Prevention: www.cdc.gov Get help right away if: ? You have: ? A very bad headache that is not helped by medicine. ? Trouble walking or weakness in your arms and legs. ? Clear or bloody fluid coming from your nose or ears. ? Changes in how you see (vision). ? A seizure. ? More confusion or more grumpy moods. ? Your symptoms get worse. ? You are sleepier than normal and have trouble staying awake. ? You lose your balance. ? The black centers of your eyes (pupils) change in size. ? Your speech is slurred. ? Your dizziness gets worse. ? You vomit. These symptoms may be an emergency. Do not wait to see if the symptoms will go away. Get medical help right away. Call your local emergency services (911 in the [place] Do not drive yourself to the hospital. Summary ? Head injuries can be as minor as a small bump. Some head injuries can be worse. ? Treatment for this condition depends on how severe the injury is and the type of injury you have. ? Have someone stay with you for 24 hours after your head injury. ? Ask your doctor when it is safe for you to go back to your normal activities, such as work or school. ? To prevent a head injury, wear a seat belt in a car, wear a helmet when you use a bicycle, limit your alcohol use, and make your home safer. This information is not intended to replace advice given to you by your health care provider. Make sure you discuss any questions you have with your health care provider. Document Revised: 08/22/2020 Document Reviewed: 08/22/2020 [employer] Patient Education ?? 2022 [email or web address] Tests Performed Medications and Immunizations Administered Given acetaminophen, 650 mg, Oral Lab Test Name Test Result Date/Time WBC 19.0 x10^3/mcL 06/17/2023 09:21 EDT RBC 4.0 x10^6/mcL 06/17/2023 09:21 EDT Hgb 11.5 g/dL 06/17/2023 09:21 EDT Hct 36.5 % 06/17/2023 09:21 EDT MCV 91.0 fL 06/17/2023 09:21 EDT MCH 28.7 pg 06/17/2023 09:21 EDT MCHC 31.5 g/dL 06/17/2023 09:21 EDT RDW-CV 14.7 % 06/17/2023 09:21 EDT Platelets 580 x10^3/mcL 06/17/2023 09:21 EDT Neutro Auto 74.4 % 06/17/2023 09:21 EDT Lymph Auto 14.2 % 06/17/2023 09:21 EDT [place] Auto 7.4 % 06/17/2023 09:21 EDT Eos, Auto 2.8 % 06/17/2023 09:21 EDT Basophil Auto 0.7 % 06/17/2023 09:21 EDT Imm Gran Auto 0.5 % 06/17/2023 09:21 EDT Neutro Absolute 14.1 x10^3/mcL 06/17/2023 09:21 EDT Sodium Level 136 mmol/L 06/17/2023 09:21 EDT Potassium Level 4.0 mmol/L 06/17/2023 09:21 EDT Chloride Level 101 mmol/L 06/17/2023 09:21 EDT CO2 31 mmol/L 06/17/2023 09:21 EDT Alk Phos 125 unit/L 06/17/2023 09:21 EDT AST 12 unit/L 06/17/2023 09:21 EDT ALT 22 unit/L 06/17/2023 09:21 EDT BUN 11 mg/dL 06/17/2023 09:21 EDT Glucose Level 93 mg/dL 06/17/2023 09:21 EDT Creatinine Level 0.79 mg/dL 06/17/2023 09:21 EDT eGFR AA 80 06/17/2023 09:21 EDT eGFR Non-AA 80 06/17/2023 09:21 EDT Calcium Level 8.6 mg/dL 06/17/2023 09:21 EDT Protein Total 6.5 g/dL 06/17/2023 09:21 EDT Albumin Level 2.9 g/dL 06/17/2023 09:21 EDT Bilirubin Total 0.3 mg/dL 06/17/2023 09:21 EDT UA Color YELLOW. 06/17/2023 10:26 EDT UA Appear CLEAR. 06/17/2023 10:26 EDT UA Glucose NEGATIVE 06/17/2023 10:26 EDT UA Bili NEGATIVE 06/17/2023 10:26 EDT UA Ketones NEGATIVE 06/17/2023 10:26 EDT UA Spec Grav 1.010 06/17/2023 10:26 EDT UA Blood NEGATIVE 06/17/2023 10:26 EDT UA pH 6.0 06/17/2023 10:26 EDT UA Protein NEGATIVE 06/17/2023 10:26 EDT UA Urobilinogen 0.2 Uro 06/17/2023 10:26 EDT UA Nitrite NEGATIVE 06/17/2023 10:26 EDT UA Leuk Est 2+ 06/17/2023 10:26 EDT UA Culture Ind?. Indicated 06/17/2023 10:26 EDT UA WBC 3-5 06/17/2023 10:26 EDT UA RBC 0-2 06/17/2023 10:26 EDT UA Squam Epithelial Few 06/17/2023 10:26 EDT UA Mucous None Seen 06/17/2023 10:26 EDT UA Bacteria Few 06/17/2023 10:26 EDT UA Gran Cast Rare 06/17/2023 10:26 EDT Patient/Picture Frame Maker Signature Patient Name:KELLEE LICONA I have received this information and my questions have been answered. Patient/Picture Frame Maker Name: Patient/Picture Frame Maker Signature: Relationship to Patient: Witness Name/Signature: Date: Electronically Signed on: 06/17/2023 11:04 EDTSigned by:ANGUS Discharge summary * Jacklyn Houston: PERFORM Event Display: Discharge Note Authored Date: * Jacklyn Houston: PERFORM Event Display: Discharge Note Authored Date: Diagnosis: 1. Head injury Comment: Diagnosis: 2. Atelectasis pulmonary Comment: Diagnosis: 3. Leukocytosis Comment: Diagnosis: 4. Dizziness Comment: Diagnosis: Fall Comment: Electronically Signed on 06/17/23 11:35 AM Jacklyn Houston Patient Care team information Care Team Personnel Name: Annette Conroy MD Position: Physician Member Role: Informed Provider Address: Address: [address] [place] [id number] [place] Name: Kane Chacon MD Position: Physician Member Role: ED Physician Address: Address: [address] [place] [address] Name: Genesis Butler Position: Nurse Member Role: ED Nurse Care Team Related Persons Name: RAFAEL ANDRES Address: Home Name: HARI LICONA Address: Home
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
--- OUTSIDE RECORDS SUMMARY | 2023-09-12 13:48 | XMS_ITS | Continuity of Care Document ---
Author Name Unknown Organization [facility] Address [address] [place] [address] Care Team Providers Care Sash Installer Name Role Phone Annette Conroy Primary Care Physician [phone] Encounter [facility] Date(s): 07/01/23 - 07/01/23 [facility] [address] [place] [address] [place] Encounter Diagnosis Screening for lung cancer(Discharge Diagnosis) - 07/01/23 Discharge Disposition: Home or Self Care Attending Physician: Annette Conroy MD Admitting Physician: Annette Conroy MD Referring Physician: Annette Conroy MD Allergies, Adverse Reactions, Alerts No Known Medication Allergies Assessment and Plan Future Appointments Future Scheduled Tests Laboratory* T3, Free [facility] 08/03/22 * Basic Metabolic Panel 05/12/23 * CBC w/ Diff 05/12/23 * PT/ INR 05/12/23 * ABO/Rh 05/12/23 * Nicotine & Metabolites, S [place] 05/11/23 * MRSA Screen Culture 05/12/23 * TSH w/ Rflx to Free T4 08/03/22 * Antibody Screen Gel 05/12/23 Radiology* MG Mammo Screening Bilateral w/ Rafi 06/08/23 * CT Brain/Head w/o Contrast 06/03/23 Immunizations Given and Recorded Vaccine Date Status [...] Recorded tetanus/diphth/pertuss (Tdap) adult/adol 11/16/11 Recorded Novel [id number], all formulation 11/25/09 Recorded pneumococcal 23-polyvalent vaccine 08/23/02 Record ed 1Result Comment: Unit: Unknown Licensed Mortgage Loan Officer: Sanofi P[employer]ur 2Result Comment: Unit: Unknown Licensed Mortgage Loan Officer: Sanofi Pasteur 3Result Comment: Unit: Unknown Licensed Mortgage Loan Officer: San[employer] P[employer] Medications acetaminophen 500 mg oral capsule 1,000 mg = 2 cap, Oral, every 6 hr Start Date: 04/08/22 Status: Ordered cyclobenzaprine 5 mg oral tablet 1 tab, Oral, TID, # 42 tab, 3 Refill(s), Pharmacy: [facility], 149, cm, 05/19/23 17:18:00EDT, Height/Length Dosing, 43.09, kg, 05/19/23 17:18:00 EDT, Weight Dosing Start Date: 06/13/23 Stop Date: 06/27/23 Status: Ordered fludrocortisone 0.1 mg oral tablet 0.5 tab, Oral, Daily, # 7 tab, 3 Refill(s), Pharmacy: [facility]58, 149, cm, 06/17/23 8:16:00 EDT, Height/Length Dosing, 42, kg, 06/17/23 8:16:00 EDT, Weight Dosing Start Date: 06/30/23 Stop Date: 07/14/23 Status: Ordered gabapentin 300 mg oral capsule 900 mg = 3 cap, Oral, BID, 3 cap bid, # 540 cap, 3 Refill(s), Pharmacy: [facility]58, 152, cm, 11/04/22 17:29:00 EST, Height/Length Dosing, 44, kg, 11/04/22 17:29:00 EST, Weight Dosing Start Date: 12/24/22 Status: Ordered levothyroxine 125 mcg (0.125 mg) oral tablet 125 mcg = 1 tab, Oral, Daily, # 90 tab, 2 Refill(s), Pharmacy: [facility]58, 152, cm, 11/04/22 17:29:00 EST, Height/Length Dosing, 44, kg, 11/04/22 17:29:00 EST, Weight Dosing Start Date: 12/24/22 Status: Ordered LORazepam 2 mg oral tablet 2 mg = 1 tab, Oral, BID, PRN as needed for anxiety, TAKE ONE TABLET BY MOUTH EVERY DAY AT BEDTIME NEEDED may take second tab mid night if needed, # 56 tab, 5 Refill(s), Pharmacy: [facility], 149, cm, 05/19/23 17:18:00 EDT, Height/Length Dosing, 43.09, kg, 05/19/23 17:18:00 EDT, Weight Dosing Start Date: 05/26/23 Status: Ordered nicotine 14 mg/24 hr transdermal film, extended release 1 patches, TD, Daily, # 14 patches, 2 Refill(s), Pharmacy: [facility], 149, cm, 05/19/23 17:18:00 EDT, Height/Length Dosing, 43.09, kg, 05/19/23 17:18:00 EDT, Weight Dosing Start Date: 06/11/23 Status: Ordered omeprazole 40 mg oral delayed release capsule 40 mg = 1 cap, Oral, Daily, # 90 cap, 3 Refill(s), Pharmacy: [facility], 152, cm, 11/04/22 17:29:00 EST, Height/Length Dosing, 44, kg, 11/04/22 17:29:00 EST, Weight Dosing Start Date: 12/24/22 Status: Ordered ondansetron 4 mg oral tablet, disintegrating 4 mg = 1 tab, Oral, every 6 hr, PRN other (see comment), as needed, # 120 tab, 1 Refill(s), Pharmacy: [facility], 152, cm, 11/04/22 17:29:00 EST, Height/Length Dosing, 44, kg, 11/04/22 17:29:00 EST, Weight Dosing Start Date: 12/24/22 Status: Ordered PreserVision AREDS Lutein oral capsule 1 caps, Oral, Daily, 0 Refill(s) Start Date: 02/02/23 Status: Ordered rOPINIRole 2 mg oral tablet 2 tab, Oral, Daily, # 60 tab, 3 Refill(s), Pharmacy: [facility], 152, cm, 01/08/23 21:48:00 EDT, Height/Length Dosing, 41, kg, 01/08/23 21:48:00 EDT, Weight Dosing Start Date: 04/13/23 Status: Ordered Singulair 10 mg oral tablet 10 mg = 1 tab, Oral, Daily, # 90 tab, 3 Refill(s), Pharmacy: [facility], 152, cm, 11/04/22 17:29:00 EST, Height/Length Dosing, 44, kg, 11/04/22 17:29:00 EST, Weight Dosing Start Date: 12/24/22 Status: Ordered SUMAtriptan 100 mg oral tablet See Instructions, TAKE ONE TABLET BY MOUTH TWICE A DAY NEEDED FOR MIGRAINE HEADACHE, # 9 tab, 1 Refill(s), Pharmacy: [facility], 152, cm, 01/08/23 21:48:00 EDT, Height/Length Dosing, 41,kg, 01/08/23 21:48:00 EDT, Weight Dosing Start Date: 03/06/23 Status: Ordered traMADol 50 mg oral tablet 50 mg = 1 tab, Oral, every 12 hr, PRN as needed for pain, # 56 tab, 0 Refill(s), Pharmacy: [facility], 149, cm, 06/17/23 8:16:00 EDT, Height/Length Dosing, 42, kg, 06/17/23 8:16:00 EDT, Weight Dosing Start Date: 07/02/23 Stop Date: 07/30/23 Status: Ordered traZODone 100 mg oral tablet 50 mg = 0.5 tab, Oral, every night at bedtime, # 90 tab, 3 Refill(s), Pharmacy: [facility], 152, cm, 11/04/22 17:29:00 EST, Height/Length [...] Completed Elective delivery 18 Completed 1Esophagogastroduodenoscopy with ydqq-rtq-hvlg esophageal dilatation 2foreign body (suture) 3Takedown Enterocutaneous [...] Use:. 1, 2 Sex Female 1less than /2 PPD 14/12 to one pack a day [id number], restared smoking 2015 1 PPD Implantable Device List Procedure Provider Procedure Date Device Type Site Repair initial incisional or ventral hernia; [facility]cible [facility] 06/09/22 Non Biological Abdomen Device Identifier Serial Number Lot or Batch Number Manufacturing Date Expiration Date Distinct Identification Code MRI Safety Implantable Status Assigning Authority Unknown Unknown [id number] Unknown 07/20/22 Unknown Unknown Active Unknown Patient Care team information Care Team Personnel Name: Annette Conroy MD Position: Physician Member Role: Informed Provider Address: Address: [address] [place] [phone] [place] Care Team Related Persons Name: RAFAEL ANDRES Address: Home Name: HARI LICONA Address: Home
--- OUTSIDE RECORDS SUMMARY | 2023-09-12 13:48 | XMS_ITS | Continuity of Care Document ---
Author Name Unknown Organization [facility] Address [address] [place] [address] Care Team Providers Care Professor Of Management Name Role Phone Annette Conroy Primary Care Physician [facility] - 06/10/23 [facility] [address] [place] [address] Discharge Disposition: Home or Self Care Attending [...] Recorded tetanus/diphth/pertuss (Tdap) adult/adol 11/16/11 Recorded Novel [id number], all formulation 11/25/09 Recorded pneumococcal 23-polyvalent vaccine 08/23/02 Record ed 1Result Comment: Unit: Unknown Job Coaching: [employer] P[employer] 2Result Comment: Unit: Unknown Job Coaching: [employer]i P[employer] 3Result Comment: Unit: Unknown Job Coaching: [employer]i P[employer] Medications acetaminophen 500 mg oral capsule 1,000 mg = 2 cap, Oral, every 6 hr Start Date: 04/08/22 Status: Ordered amitriptyline 25 mg oral tablet 25 mg = 1 tab, TAKE ONE TABLET BY MOUTH EVERY NIGHT AT BEDTIME Start Date: 05/25/23 Status: Ordered cyclobenzaprine 5 mg oral tablet 1 tab, Oral, TID, # 42 tab, 3 Refill(s), Pharmacy: [facility], 152, cm, 01/08/23 21:48:00EDT, Height/Length Dosing, 41, kg, 01/08/23 21:48:00 EDT, Weight Dosing Start Date: 04/15/23 Stop Date: 04/29/23 Status: Ordered Eliquis 2.5 mg oral tablet TAKE ONE TABLET BY MOUTH TWICE A DAY Start Date: 05/25/23 Status: Ordered gabapentin 300 mg oral capsule 900 mg = 3 cap, Oral, BID, 3 cap bid, # 540 cap, 3 Refill(s), Pharmacy: [facility], 152, cm, 11/04/22 17:29:00 EST, Height/Length [...] Daily, # 90 tab, 2 Refill(s), Pharmacy: [facility], 152, cm, 11/04/22 17:29:00 EST, Height/Length Dosing, 44, kg, 11/04/22 17:29:00 EST, Weight Dosing Start Date: 12/24/22 Status: Ordered LORazepam 2 mg oral tablet 2 mg = 1 tab, Oral, BID, PRN as needed for anxiety, TAKE ONE TABLET BY MOUTH EVERY DAY AT BEDTIME NEEDED may take second tab mid night if needed, # 56 tab, 5 Refill(s), Pharmacy: [facility], 149, cm, 05/19/23 17:18:00 EDT, Height/Length Dosing, 43.09, kg, 05/19/23 17:18:00 EDT, Weight Dosing Start Date: 05/26/23 Status: Ordered nicotine 14 mg/24 hr transdermal film, extended release 1 patches, TD, Daily, # 14 patches, 0 Refill(s), Pharmacy: [facility], 149, cm, 05/19/23 17:18:00 EDT, Height/Length Dosing, 43.09, kg, 05/19/23 17:18:00 EDT, Weight Dosing Start Date: 06/02/23 Status: Ordered nicotine 7 mg/24 hr transdermal film, extended release 1 patches, TD, Daily, # 7 patches, 0 Refill(s), Pharmacy: [facility], 149, cm, 05/19/23 17:18:00 EDT, Height/Length Dosing, 43.09, kg, 05/19/23 17:18:00 EDT, Weight Dosing Start Date: 06/02/23 Status: Ordered omeprazole 40 mg oral delayed release capsule 40 mg = 1 cap, Oral, Daily, # 90 cap, 3 Refill(s), Pharmacy: [facility], 152, cm, 11/04/22 17:29:00 EST, Height/Length Dosing, 44, kg, 11/04/22 17:29:00 EST, Weight Dosing Start Date: 12/24/22 Status: Ordered ondansetron 4 mg oral tablet, disintegrating 4 mg = 1 tab, Oral, every 6 hr, PRN other (see comment), as needed, # 120 tab, 1 Refill(s), Pharmacy: [facility], 152, cm, 11/04/22 17:29:00 EST, Height/Length Dosing, 44, kg, 11/04/22 17:29:00 EST, Weight Dosing Start Date: 12/24/22 Status: Ordered predniSONE 10 mg oral tablet 0 Refill(s) Start Date: 05/25/23 Status: Ordered PreserVision AREDS Lutein oral capsule 1 caps, Oral, Daily, 0 Refill(s) Start Date: 02/02/23 Status: Ordered rOPINIRole 2 mg oral tablet 2 tab, Oral, Daily, # 60 tab, 3 Refill(s), Pharmacy: [facility], 152, cm, 01/08/23 21:48:00 EDT, Height/Length Dosing, 41, kg, 01/08/23 21:48:00 EDT, Weight Dosing Start Date: 04/13/23 Status: Ordered sertraline 25 mg oral tablet TAKE ONE TABLET BY MOUTH EVERY DAY Start Date: 05/25/23 Status: Ordered Singulair 10 mg oral tablet 10 mg = 1 tab, Oral, Daily, # 90 tab, 3 Refill(s), Pharmacy: [facility], 152, cm, 11/04/22 17:29:00 EST, Height/Length Dosing, 44, kg, 11/04/22 17:29:00 EST, Weight Dosing Start Date: 12/24/22 Status: Ordered SUMAtriptan 100 mg oral tablet See Instructions, TAKE ONE TABLET BY MOUTH TWICE A DAY NEEDED FOR MIGRAINE HEADACHE, # 9 tab, 1 Refill(s), Pharmacy: [facility], 152, cm, 01/08/23 21:48:00 EDT, Height/Length Dosing, 41,kg, 01/08/23 21:48:00 EDT, Weight Dosing Start Date: 03/06/23 Status: Ordered traMADol 50 mg oral tablet 50 mg = 1 tab, Oral, every 12 hr, PRN as needed for pain, # 56 tab, 0 Refill(s), Pharmacy: [facility], 149, cm, 05/19/23 17:18:00 EDT, Height/Length Dosing, 43.09, kg, 05/19/23 17:18:00 EDT, Weight Dosing Start Date: 06/01/23 Stop Date: 06/29/23 Status: Ordered traZODone 100 mg oral tablet 100 mg = 1 tab, Oral, every night at bedtime, # 90 tab, 3 Refill(s), Pharmacy: [facility], 152, cm, 11/04/22 17:29:00 EST, Height/Length [...] Completed Elective delivery 18 Completed 1Esophagogastroduodenoscopy with wfde-ynl-jknv esophageal dilatation 2foreign body (suture) 3Takedown Enterocutaneous [...] incisional or ventral hernia; [facility]cible [facility] Non Biological Abdomen Device Identifier Serial Number Lot or Batch Number Manufacturing Date Expiration Date Distinct Identification Code MRI Safety Implantable Status Assigning Authority Unknown Unknown [id number] Unknown 07/20/22 Unknown Unknown Active Unknown Ambulatory cardiac rhythm monitor (Holter) study * eL Welsh: PERFORM Event Display: Holter Monitor Authored Date: [id number] KELLEE LICONA [id number] Patient placed on Holter Monitor 48 Hourson 06/10/23. Electronically Signed on 06/10/23 04:25 PM Le Welsh Patient Care team information Care Team Personnel Name: Major Hirsch DO Position: Physician Member Role: Informed Provider Address: Address: [facility] [address] [address]- [place] Name: Annette Conroy MD Position: Physician Member Role: Primary Care Physician Address: Address: [address] [place] [phone] Care Team Related Persons Name: RAFAEL ANDRES Address: Home Name: HARI LICONA Address: Home
--- OUTSIDE RECORDS SUMMARY | 2023-09-12 13:48 | XMS_ITS | Continuity of Care Document ---
Author Name Unknown Organization [facility] Address [address] [place] [address] Care Team Providers Care Equipment Associate Name Role Phone Major Hirsch Primary Care Physician [facility] - 03/11/[address] [address] Discharge Disposition: Home or Self Care Attending Physician: Major Hirsch DO Admitting Physician: Major Hirsch DO Referring Physician: Major Hirsch DO Allergies, Adverse Reactions, [...] rded tetanus/diphth/pertuss (Tdap) adult/adol 11/16/11 Recorded Novel [id number], all formulation 11/25/09 Recorded pneumococcal 23-polyvalent vaccine 08/23/02 Record ed 1Result Comment: Unit: Unknown Tip Fixer: Sanofi Pasteur 2Result Comment: Unit: Unknown Tip Fixer: Sanofi Pasteur Medications acetaminophen 500 mg oral capsule 1,000 mg = 2 cap, Oral, every 6 hr Start Date: 04/08/22 Status: Ordered cyclobenzaprine 5 mg oral tablet 1 tab, Oral, TID, # 42 tab, 3 Refill(s), Pharmacy: [facility], 152, cm, 01/08/23 21:48:00EDT, Height/Length Dosing, 41, kg, 01/08/23 21:48:00 EDT, Weight Dosing Start Date: 02/22/23 Stop Date: 03/08/23 Status: Ordered Eliquis 2.5 mg oral tablet 1 tab, Oral, BID, # 180 tab, 2 Refill(s), Pharmacy: [facility], 152, cm, 10/14/22 14:28:00 EST, Height/Length Dosing, 44, kg, 10/14/22 14:28:00 EST, Weight Dosing Start Date: 10/24/22 Status: Ordered gabapentin 300 mg oral capsule 900 mg = 3 cap, Oral, BID, 3 cap bid, # 540 cap, 3 Refill(s), Pharmacy: [facility]58, 152, cm, 11/04/22 17:29:00 EST, Height/Length Dosing, 44, kg, 11/04/22 17:29:00 EST, Weight Dosing Start Date: 12/24/22 Status: Ordered levothyroxine 125 mcg (0.125 mg) oral tablet 125 mcg = 1 tab, Oral, Daily, # 90 tab, 2 Refill(s), Pharmacy: [facility], 152, cm, 11/04/22 17:29:00 EST, Height/Length Dosing, 44, kg, 11/04/22 17:29:00 EST, Weight Dosing Start Date: 12/24/22 Status: Ordered LORazepam 2 mg oral tablet 2 mg = 1 tab, Oral, BID, PRN as needed for anxiety, TAKE ONE TABLET BY MOUTH EVERY DAY AT BEDTIME NEEDED may take second tab mid night if needed, # 56 tab, 5 Refill(s), Pharmacy: [facility]58, 152, cm, 11/04/22 17:29:00 EST, Height/Length D... Start Date: 11/05/22 Status: Ordered omeprazole 40 mg oral delayed release capsule 40 mg = 1 cap, Oral, Daily, # 90 cap, 3 Refill(s), Pharmacy: [facility], 152, cm, 11/04/22 17:29:00 EST, Height/Length Dosing, 44, kg, 11/04/22 17:29:00 EST, Weight Dosing Start Date: 12/24/22 Status: Ordered ondansetron 4 mg oral tablet, disintegrating 4 mg = 1 tab, Oral, every 6 hr, PRN other (see comment), as needed, # 120 tab, 1 Refill(s), Pharmacy: [facility]58, 152, cm, 11/04/22 17:29:00 EST, Height/Length Dosing, 44, kg, 11/04/22 17:29:00 EST, Weight Dosing Start Date: 12/24/22 Status: Ordered PreserVision AREDS Lutein oral capsule 1 caps, Oral, Daily, 0 Refill(s) Start Date: 02/02/23 Status: Ordered rOPINIRole 2 mg oral tablet 4 mg = 2 tab, Oral, Daily, # 60 tab, 3 Refill(s), Pharmacy: [facility]58, 152, cm, 11/04/2316:29:00 EST, Height/Length Dosing, 44, kg, 11/04/22 17:29:00 EST, Weight Dosing Start Date: 12/24/22 Status: Ordered Singulair 10 mg oral tablet 10 mg = 1 tab, Oral, Daily, # 90 tab, 3 Refill(s), Pharmacy: [facility]58, 152, cm, 11/04/22 17:29:00 EST, Height/Length Dosing, 44, kg, 11/04/22 17:29:00 EST, Weight Dosing Start Date: 12/24/22 Status: Ordered SUMAtriptan 100 mg oral tablet See Instructions, TAKE ONE TABLET BY MOUTH TWICE A DAY NEEDED FOR MIGRAINE HEADACHE, # 9 tab, 1 Refill(s), Pharmacy: [facility]58, 152, cm, 01/08/23 21:48:00 EDT, Height/Length Dosing, 41,kg, 01/08/23 21:48:00 EDT, Weight Dosing Start Date: 03/06/23 Status: Ordered traMADol 50 mg oral tablet 50 mg = 1 tab, Oral, every 12 hr, PRN as needed for pain, # 56 tab, 0 Refill(s), Pharmacy: [facility]58, 152, cm, 01/08/23 21:48:00 EDT, Height/Length Dosing, 41, kg, 01/08/23 21:48:00 EDT, Weight Dosing Start Date: 03/01/23 Stop Date: 03/29/23 Status: Ordered traZODone 100 mg oral tablet 100 mg = 1 tab, Oral, every night at bedtime, # 90 tab, 3 Refill(s), Pharmacy: [facility], 152, cm, 11/04/22 17:29:00 EST, Height/Length [...] Completed Elective delivery 18 Completed 1Esophagogastroduodenoscopy with mgxu-pjg-aztf esophageal dilatation 2foreign body (suture) 3Takedown Enterocutaneous [...] 18times 2 Results Laboratory List Name Date CBC w/ Diff 03/11/23 T3, Free [facility] 03/11/23 TSH w/ Rflx to Free T4 03/11/23 Automated Diff 03/11/23 Most recent to oldest [Reference Range]: 1 WBC [5.0-10.0 x10^3/mcL] 14.7 x10^3/mcL *HI* (03/11/23 10:36 AM) RBC [4.1-5.3 x10^6/mcL] 3.9 x10^6/mcL *LOW* (03/11/23 10:36 AM) Neutro Auto [40.0-75.0 %] 64.0 % (03/11/23 10:36 AM) Lymph Auto [20.0-50.0 %] 21.9 % (03/11/23 10:36 AM) Wilkinson Auto [2.0-15.0 %] 8.5 % (03/11/23 10:36 AM) Basophil Auto [0.0-1.0 %] 0.9 % (03/11/23 10:36 AM) MCV [80.0-96.0 fL] 92.3 fL (03/11/23 10:36 AM) MCHC [31.0-35.0 g/dL] 32.0 g/dL (03/11/23 10:36 AM) Hct [37.0-47.0 %] 36.2 % *LOW* (03/11/23 10:36 AM) MCH [26.0-32.0 pg] 29.6 pg (03/11/23 10:36 AM) Neutro Absolute 9.4 x10^3/mcL *NA* (03/11/23 10:36 AM) Hgb [12.0-16.0 g/dL] 11.6 g/dL *LOW* (03/11/23 10:36 AM) Platelets [130-450 x10^3/mcL] 528 x10^3/ mcL *HI* (03/11/23 10:36 AM) TSH [0.358-3.740 mcIntlUnit/mL] 0.411 mc IntlUnit/mL (03/11/23 10:36 AM) RDW-CV [11.5-14.5 %] 14.2 % (03/11/23 10:36 AM) Imm Gran Auto [0.0-0.9 %] 0.3 % (03/11/23 10:36 AM) T3, Free [facility] [2.8-5.3 pg/mL] 4.0 pg/mL 1 *NA* (03/11/23 10:36 AM) Eos, Auto [1.0-6.0 %] 4.4 % (03/11/23 10:36 AM) 1Result Comment: Test performed [place] [address] Social History Social History Type Response Tobacco Current everyday tob acco user Tobacco Use:. 1 Sex Female 08/25 to one pack a day [id number], restared smoking 2015 10 PPD Implantable Device List Procedure Provider Procedure Date Device Type Site Repair initial incisional or ventral hernia; reducible Erasto [facility] Non Biological Abdomen Device Identifier Serial Number Lot or Batch Number Manufacturing Date Expiration Date Distinct Identification Code MRI Safety Implantable Status Assigning Authority Unknown Unknown [id number] Unknown 07/20/22 Unknown Unknown Active Unknown Patient Care team information Care Team Personnel Name: Major Hirsch DO Position: Physician Member Role: Primary Care Physician Address: Address: [place] [facility] [id number] [place] [address] Name: Shan Short MD Position: Physician Member Role: Informed Provider Address: Address: [facility] [address] [place] [phone] [place] Care Team Related Persons Name: RAFAEL ANDRES Name: HARI LICONA
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
--- OUTSIDE RECORDS SUMMARY | 2023-09-12 13:48 | XMS_ITS | Continuity of Care Document ---
Author Name Unknown Organization [facility] Address [address] [place] [address] Care Team Providers Care [place] Farmer Name Role Phone Major Hirsch Primary Care Physician [facility] - 05/19/[address] [address] Encounter Diagnosis Left knee pain(Discharge Diagnosis) - 05/19/23 Discharge Disposition: Home or Self Care Attending Physician: Gabriela Nash MD Admitting Physician: Gabriela Nash MD Allergies, Adverse Reactions, Alerts No Known Medication Allergies Assessment and Plan Extracted from: Title:Clinical Document Author:Dany Chacon Date:05/19/23 Diagnosis: 1. Left knee pain Comment: Diagnosis: Knee pain-swelling Comment: Future Appointments Future Scheduled Tests Laboratory* T3, Free [facility] 08/03/22 * Basic Metabolic Panel 05/12/23 * CBC w/ Diff 05/12/23 * PT/ INR 05/12/23 * ABO/Rh 05/12/23 * Nicotine & Metabolites, [place] 05/11/23 * MRSA Screen Culture 05/12/23 * TSH w/ Rflx to Free [facility] 08/03/22 * Antibody Screen Gel 05/12/23 Functional Status 05/19/23 Family Member Travel History No recent t [...] rded tetanus/diphth/pertuss (Tdap) adult/adol 11/16/11 Recorded Novel [id number], all formulation 11/25/09 Recorded pneumococcal 23-polyvalent vaccine 08/23/02 Record ed 1Result Comment: Unit: Unknown 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: [employer] 2Result Comment: Unit: Unknown 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: [employer] Medications acetaminophen 500 mg oral capsule 1,000 mg = 2 cap, Oral, every 6 hr Start Date: 04/08/22 Status: Ordered cyclobenzaprine 5 mg oral tablet 1 tab, Oral, TID, # 42 tab, 3 Refill(s), Pharmacy: [email or web address], 152, cm, 01/08/23 21:48:00EDT, Height/Length Dosing, 41, kg, 01/08/23 21:48:00 EDT, Weight Dosing Start Date: 04/15/23 Stop Date: 04/29/23 Status: Ordered gabapentin 300 mg oral capsule 900 mg = 3 cap, Oral, BID, 3 cap bid, # 540 cap, 3 Refill(s), Pharmacy: [email or web address], 152, cm, 11/04/22 17:29:00 EST, Height/Length Dosing, 44, kg, 11/04/22 17:29:00 EST, Weight Dosing Start Date: 12/24/22 Status: Ordered HYDROcodone-acetaminophen 5 mg-300 mg oral tablet 1 tab, Oral, every 6 hr, PRN as needed for pain, X 3 days, # 5 tab, 0 Refill(s), 05/22/23 19:13:00 EDT, Pharmacy: [email or web address], 149, cm, 05/19/23 17:18:00 EDT, Height/Length Dosing, 43.09, kg, 05/19/23 17:18:00 EDT, Weight Dosing Start Date: 05/19/23 Stop Date: 05/22/23 Status: Ordered levothyroxine 125 mcg (0.125 mg) oral tablet 125 mcg = 1 tab, Oral, Daily, # 90 tab, 2 Refill(s), Pharmacy: [email or web address], 152, cm, 11/04/22 17:29:00 EST, Height/Length Dosing, 44, kg, 11/04/22 17:29:00 EST, Weight Dosing Start Date: 12/24/22 Status: Ordered LORazepam 2 mg oral tablet 2 mg = 1 tab, Oral, BID, PRN as needed for anxiety, TAKE ONE TABLET BY MOUTH EVERY DAY AT BEDTIME NEEDED may take second tab mid night if needed, # 56 tab, 5 Refill(s), Pharmacy: [email or web address], 152, cm, 11/04/22 17:29:00 EST, Height/Length D... Start Date: 11/05/22 Status: Ordered omeprazole 40 mg oral delayed release capsule 40 mg = 1 cap, Oral, Daily, # 90 cap, 3 Refill(s), Pharmacy: [email or web address], 152, cm, 11/04/22 17:29:00 EST, Height/Length Dosing, 44, kg, 11/04/22 17:29:00 EST, Weight Dosing Start Date: 12/24/22 Status: Ordered ondansetron 4 mg oral tablet, disintegrating 4 mg = 1 tab, Oral, every 6 hr, PRN other (see comment), as needed, # 120 tab, 1 Refill(s), Pharmacy: [email or web address], 152, cm, 11/04/22 17:29:00 EST, Height/Length Dosing, 44, kg, 11/04/22 17:29:00 EST, Weight Dosing Start Date: 12/24/22 Status: Ordered PreserVision AREDS Lutein oral capsule 1 caps, Oral, Daily, 0 Refill(s) Start Date: 02/02/23 Status: Ordered rOPINIRole 2 mg oral tablet 2 tab, Oral, Daily, # 60 tab, 3 Refill(s), Pharmacy: [email or web address], 152, cm, 01/08/23 21:48:00 EDT, Height/Length Dosing, 41, kg, 01/08/23 21:48:00 EDT, Weight Dosing Start Date: 04/13/23 Status: Ordered Singulair 10 mg oral tablet 10 mg = 1 tab, Oral, Daily, # 90 tab, 3 Refill(s), Pharmacy: [email or web address], 152, cm, 11/04/22 17:29:00 EST, Height/Length Dosing, 44, kg, 11/04/22 17:29:00 EST, Weight Dosing Start Date: 12/24/22 Status: Ordered SUMAtriptan 100 mg oral tablet See Instructions, TAKE ONE TABLET BY MOUTH TWICE A DAY NEEDED FOR MIGRAINE HEADACHE, # 9 tab, 1 Refill(s), Pharmacy: [email or web address], 152, cm, 01/08/23 21:48:00 EDT, Height/Length Dosing, 41,kg, 01/08/23 21:48:00 EDT, Weight Dosing Start Date: 03/06/23 Status: Ordered traMADol 50 mg oral tablet 50 mg = 1 tab, Oral, every 12 hr, PRN as needed for pain, # 56 tab, 0 Refill(s), Pharmacy: [email or web address], 152, cm, 04/27/23 18:20:00 EDT, Height/Length Dosing, 41, kg, 04/27/23 18:20:00 EDT, Weight Dosing Start Date: 04/29/23 Stop Date: 05/27/23 Status: Ordered traZODone 100 mg oral tablet 100 mg = 1 tab, Oral, every night at bedtime, # 90 tab, 3 Refill(s), Pharmacy: [email or web address], 152, cm, 11/04/22 17:29:00 EST, Height/Length [...] Completed Elective delivery 18 Completed 1Esophagogastroduodenoscopy with lozo-ugs-smxh esophageal dilatation 2foreign body (suture) 3Takedown Enterocutaneous [...] Temperature Temporal Artery [36-38 Deg C ] 35.6 Deg C *LOW* (05/19/23 5:12 PM) Peripheral Pulse Rate [60-100 bpm] 95 bp m (05/19/23 5:12 PM) Respiratory Rate [12-24 br/min] 18 br/mi n (05/19/23 5:12 PM) Blood Pressure [90-140/60-90 mmHg] 126/7 8mmHg (05/19/23 5:12 PM) Weight Dosing 43.09 kg (05/19/23 5:18 PM) Weight Estimated 43.09 kg (05/19/23 5:12 PM) Height/Length Dosing 149.000 cm (05/19/23 5:18 PM) Height/Length Estimated 149.000 cm (05/19/23 5:12 PM) Social History Social History Type Response Tobacco Current everyday tob acco user Tobacco Use:. Sex Female Implantable Device List Procedure Provider Procedure Date Device Type Site Repair initial incisional or ventral hernia; [facility] Non Biological Abdomen Device Identifier Serial Number Lot or Batch Number Manufacturing Date Expiration Date Distinct Identification Code MRI Safety Implantable Status Assigning Authority Unknown Unknown [id number] Unknown 07/20/22 Unknown Unknown Active Unknown Hospital Discharge Instructions Patient Education 05/19/2023 18:11:15 Acute Knee Pain, Adult Acute Knee Pain, Adult Acute knee pain is sudden and may be caused by damage, swelling, or irritation of the muscles and tissues that support the knee. Pain may result from: ??? A fall. ??? An injury to the knee from twisting motions. ??? A hit to the knee. ??? Infection. Acute knee pain may go away on its own with time and rest. If it does not, your health care provider may order tests to find the cause of the pain. These may include: ??? Imaging tests, such as an X-ray, MRI, CT scan, or ultrasound. ??? Joint aspiration. In this test, fluid is removed from the knee and evaluated. ??? Arthroscopy. In this test, a lighted tube is inserted into the knee and an image is projected onto a TV screen. ??? Biopsy. In this test, a sample of tissue is removed from the body and studied under a microscope. Follow these instructions at home: If you have a knee sleeve or brace: ??? Wear the knee sleeve or brace as told by your health care provider. Remove it only as told by your health care provider. ??? Loosen it if your toes tingle, become numb, or turn cold and blue. ??? Keep it clean. ??? If the knee sleeve or brace is not waterproof: ??? Do not let it get wet. ??? Cover it with a watertight covering when you take a bath or shower. Activity ??? Rest your knee. ??? Do not do things that cause pain or make pain worse. ??? Avoid high-impact activities or exercises, such as running, jumping rope, or doing jumping jacks. ??? Work with a physical therapist to make a safe exercise program, as recommended by your health care provider. Do exercises as told by your physical therapist. Managing pain, stiffness, and swelling ??? If directed, put ice on the affected knee. To do this: ??? If you have a removable knee sleeve or brace, remove it as told by your health care provider. ??? Put ice in a plastic bag. ??? Place a towel between your skin and the bag. ??? Leave the ice on for 20 minutes, 2???3 times a day. ??? Remove the ice if your skin turns bright red. This is very important. If you cannot feel pain, heat, or cold, you have a greater risk of damage to the area. ??? If directed, use an elastic bandage to put pressure (compression) on your injured knee. This may control swelling, give support, and help with discomfort. ??? Raise (elevate) your knee above the level of your heart while you are sitting or lying down. ??? Sleep with a pillow under your knee. General instructions ??? Take mmjf-gew-pbejocn and prescription medicines only as told by your health care provider. ??? Do not use any products that contain nicotine or tobacco, such as cigarettes, e-cigarettes, andchewing tobacco. If you need help quitting, ask your health care provider. ??? If you are overweight, work with your health care provider and a dietitian to set a weight-lossgoal that is healthy and reasonable for you. Extra weight can put pressure on your knee. ??? Pay attention to any changes in your symptoms. ??? Keep all follow-up visits. This is important. Contact a health care provider if: ??? Your knee pain continues, changes, or gets worse. ??? You have a fever along with knee pain. ??? Your knee feels warm to the touch or is red. ??? Your knee jeffrey or locks up. Get help right away if: ??? Your knee swells, and the swelling becomes worse. ??? You cannot move your knee. ??? You have severe pain in your knee that cannot be managed with pain medicine. Summary ??? Acute knee pain can be caused by a fall, an injury, an infection, or damage, swelling, or irritation of the tissues that support your knee. ??? Your health care provider may perform tests to find out the cause of the pain. ??? Pay attention to any changes in your symptoms. Relieve your pain with rest, medicines, light activity, and the use of ice. ??? Get help right away if your knee swells, you cannot move your knee, or you have severe pain that cannot be managed with medicine. This information is not intended to replace advice given to you by your health care provider. Make sure you discuss any questions you have with your health care provider. Document Revised: 03/25/2021 Document Reviewed: 03/25/2021 [employer] Patient Education ?? 2022 [employer]. Follow Up Care 05/19/2023 17:12:42 With:Major Hirsch DO Address: [place] [address]- When:1 week Emergency department Discharge instructions * Enrique Landa MD: PERFORM Event Display: ED Discharge Information Authored Date: [id number] KELLEE LICONA :1950 Age:72 years Sex:Female Visit Date:05/19/2023 Primary Care Physician: Major Hirsch DO Discharge Instructions We would like to thank you for allowing us to assist you with your healthcare needs. The following includes patient education materials and information regarding your injury/illness. Diagnosis from Today's Visit Left knee pain Discharge Vitals Temperature??(Temporal Artery) 96.1 ??F (35.6 ??C) Heart Rate??(Peripheral) 95 Respiratory Rate?? 18 Blood Pressure?? 126/78?? Height?? 58.66 in (149.000 cm) Weight??(Estimated) 95.01 lb (43.09 kg) Allergies No Known Medication Allergies What to Do Next Instructions from Your Care Team Thankfully your x-ray tonight did not show any new broken bones or dislocations. ??The radiologist did not see??any broken bones, dislocations, or significant fluid in the knee. ??At this time, without any signs of??knee infection.?We would recommend continuing??with Tylenol, ibuprofen,??tramadol, and ice. ??You may use the prescribed [place] very sparingly for any breakthrough pain. ??Please follow-up with your primary care doctor??and/or your orthopedist in the next week or so for recheck. ??Return to the emergency department if you have any new or concerning symptoms including any fever, redness around the knee, worsening swelling,??pain with??movement when you are not walking on it,??or if you have any other symptoms or concerns. You Need to Schedule the Following Appointments Follow Up with??Major Hirsch DO When:??Within 1 week Where: [facility] [address] [address]- Upcoming Scheduled Appointments Tuesday 9:45 AM EDT ?? You were treated today [...] Much When Why Instructions Next Dose New HYDROcodone-acetaminophen (HYDROcodone-acetaminophen 5 mg-300 mg oral tablet) 1 tab Oral (given by mouth) Every 6 hours as needed for as needed for pain Left knee pain Duration: 3 Days Pickup at [facility] Unchanged acetaminophen (acetaminophen 500 mg oral [...] mouth) Every night at bedtime Pharmacy Information [facility]: [address], [place] [id number] [phone] Education Materials Acute Knee Pain, Adult Acute knee pain is sudden and may be caused by damage, swelling, or irritation of the muscles and tissues that support the knee. Pain may result from: ? A fall. ? An injury to the knee from twisting motions. ? A hit to the knee. ? Infection. Acute knee pain may go away on its own with time and rest. If it does not, your health care provider may order tests to find the cause of the pain. These may include: ? Imaging tests, such as an X-ray, MRI, CT scan, or ultrasound. ? Joint aspiration. In this test, fluid is removed from the knee and evaluated. ? Arthroscopy. In this test, a lighted tube is inserted into the knee and an image is projected onto a TV screen. ? Biopsy. In this test, a sample of tissue is removed from the body and studied under a microscope. Follow these instructions at home: If you have a knee sleeve or brace: ? Wear the knee sleeve or brace as told by your health care provider. Remove it only as told by your health care provider. ? Loosen it if your toes tingle, become numb, or turn cold and blue. ? Keep it clean. ? If the knee sleeve or brace is not waterproof: ? Do not let it get wet. ? Cover it with a watertight covering when you take a bath or shower. Activity ? Rest your knee. ? Do not do things that cause pain or make pain worse. ? Avoid high-impact activities or exercises, such as running, jumping rope, or doing jumping jacks. ? Work with a physical therapist to make a safe exercise program, as recommended by your health care provider. Do exercises as told by your physical therapist. Managing pain, stiffness, and swelling ? If directed, put ice on the affected knee. To do this: ? If you have a removable knee sleeve or brace, remove it as told by your health care provider. ? Put ice in a plastic bag. ? Place a towel between your skin and the bag. ? Leave the ice on for 20 minutes, 2???3 times a day. ? Remove the ice if your skin turns bright red. This is very important. If you cannot feel pain, heat, or cold, you have a greater risk of damage to the area. ? If directed, use an elastic bandage to put pressure (compression) on your injured knee. This may control swelling, give support, and help with discomfort. ? Raise (elevate) your knee above the level of your heart while you are sitting or lying down. ? Sleep with a pillow under your knee. General instructions ? Take omhj-gcg-btgdwsv and prescription medicines only as told by your health care provider. ? Do not use any products that contain nicotine or tobacco, such as cigarettes, e- cigarettes, and chewing tobacco. If you need help quitting, ask your health care provider. ? If you are overweight, work with your health care provider and a dietitian to set a weight-loss goal that is healthy and reasonable for you. Extra weight can put pressure on your knee. ? Pay attention to any changes in your symptoms. ? Keep all follow-up visits. This is important. Contact a health care provider if: ? Your knee pain continues, changes, or gets worse. ? You have a fever along with knee pain. ? Your knee feels warm to the touch or is red. ? Your knee jeffrey or locks up. Get help right away if: ? Your knee swells, and the swelling becomes worse. ? You cannot move your knee. ? You have severe pain in your knee that cannot be managed with pain medicine. Summary ? Acute knee pain can be caused by a fall, an injury, an infection, or damage, swelling, or irritation of the tissues that support your knee. ? Your health care provider may perform tests to find out the cause of the pain. ? Pay attention to any changes in your symptoms. Relieve your pain with rest, medicines, light activity, and the use of ice. ? Get help right away if your knee swells, you cannot move your knee, or you have severe pain that cannot be managed with medicine. This information is not intended to replace advice given to you by your health care provider. Make sure you discuss any questions you have with your health care provider. Document Revised: 03/25/2021 Document Reviewed: 03/25/2021 [employer] Patient Education ?? 2022 [employer] Tests Performed Medications and Immunizations Administered Given HYDROcodone-acetaminophen 5 mg-325 mg oral tablet, 1 tab, Oral Patient/Terra Cotta Setter Signature Patient Name:KELLEE LICONA I have received this information and my questions have been answered. Patient/Terra Cotta Setter Name: Patient/Terra Cotta Setter Signature: Relationship to Patient: Witness Name/Signature: Date: Electronically Signed on: 05/19/2023 19:14 EDTSigned by:IZAIAH Emergency department Note * Dany Chacon: PERFORM Event Display: ED Notes Authored Date: Discharge summary * Dany Chacon: PERFORM Event Display: Discharge Note Authored Date: * Dany Chacon: PERFORM Event Display: Discharge Note Authored Date: Diagnosis: 1. Left knee pain Comment: Diagnosis: Knee pain-swelling Comment: Electronically Signed on 05/19/23 07:51 PM Dany Chacon Patient Care team information Care Team Personnel Name: Major Hirsch DO Position: Physician Member Role: Informed Provider Address: Address: [facility] [address] [address]- [place] Name: Rufus Barker RN Position: Nurse Member Role: ED Nurse Name: Enrique Landa MD Position: Physician Member Role: ED Physician Address: Address: [address] [place] [address] [place] [address] [place] Care Team Related Persons Name: RAFAEL ANDRES Name: HARI LICONA
--- OUTSIDE RECORDS SUMMARY | 2023-09-12 13:48 | XMS_ITS | Continuity of Care Document ---
Author Name Unknown Organization [facility] Address [address] [place] [address] Care Team Providers Care Pourer Crane Ladle Name Role Phone Major Hirsch Primary Care Physician [facility] Date(s): 11/04/22 - 11/04/[address] [id number] Discharge Disposition: Home or Self Care Attending Physician: Gabriela Nash MD Admitting Physician: Gabriela Nash MD Allergies, Adverse Reactions, Alerts No Known Medication Allergies Assessment and Plan Future Appointments Future Scheduled Tests Laboratory* T3, Free [facility] 11/02/22 * T3, [facility] 08/03/22 * TSH w/ Rflx to Free [facility] 11/02/22 * TSH w/ Rflx to Free [facility] 08/03/22 Functional Status 11/04/22 Family Member Travel History No recent t [...] rded tetanus/diphth/pertuss (Tdap) adult/adol 11/16/11 Recorded Novel [id number], all formulation 11/25/09 Recorded pneumococcal 23-polyvalent vaccine 08/23/02 Record ed 1Result Comment: Unit: Unknown Campaign 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: [employer] 2Result Comment: Unit: Unknown Campaign Specialist: [employer] Medications acetaminophen 500 mg oral capsule 1,000 mg = 2 cap, Oral, every 6 hr Start Date: 04/08/22 Status: Ordered amitriptyline 25 mg oral tablet 50 mg = 2 tab, Oral, every day at bedtime, # 60 tab, 2 Refill(s), Pharmacy: [facility], 152, cm, 10/14/22 14:28:00 EST, Height/Length Dosing, 44, kg, 10/14/22 14:28:00 EST, Weight Dosing Start Date: 10/29/22 Status: Ordered cyclobenzaprine 5 mg oral tablet 1 tab, Oral, TID, # 42 tab, 1 Refill(s), Pharmacy: [facility], 152, cm, 10/14/22 14:28:00EST, Height/Length Dosing, 44, kg, 10/14/22 14:28:00 EST, Weight Dosing Start Date: 10/28/22 Stop Date: 11/11/22 Status: Ordered Eliquis 2.5 mg oral tablet 1 tab, Oral, BID, # 180 tab, 2 Refill(s), Pharmacy: [facility], 152, cm, 10/14/22 14:28:00 EST, Height/Length Dosing, 44, kg, 10/14/22 14:28:00 EST, Weight Dosing Start Date: 10/24/22 Status: Ordered gabapentin 300 mg oral capsule 300 mg = 1 cap, Oral, TID, 1-2 caps tid, # 270 cap, 2 Refill(s), Pharmacy: [facility], 152, cm, 10/14/22 14:28:00 EST, Height/Length Dosing, 44, kg, 10/14/22 14:28:00 EST, Weight Dosing Start Date: 10/26/22 Status: Ordered levothyroxine 125 mcg (0.125 mg) oral tablet 125 mcg = 1 tab, Oral, Daily, # 60 tab, 2 Refill(s), Pharmacy: [facility], 152.4, cm, 06/09/22 20:01:00 EDT, Height/Length Dosing, 46.2, kg, 06/09/22 20:01:00 EDT, Weight Dosing Start Date: 09/23/22 Status: Ordered LORazepam 2 mg oral tablet 2 mg = 1 tab, Oral, every night at bedtime, PRN as needed for anxiety, TAKE ONE TABLET BY MOUTH EVERY DAY AT BEDTIME NEEDED, # 28 tab, 5 Refill(s), Pharmacy: [facility], 152.4, cm, 06/09/22 20:01:00 EDT, Height/Length Dosing, 46.2, kg, 08... Start Date: 09/15/22 Status: Ordered omeprazole 40 mg oral delayed release capsule 40 mg = 1 cap, Oral, Daily, # 90 cap, 3 Refill(s), Pharmacy: [facility], 152.4, cm, 06/09/22 20:01:00 EDT, Height/Length Dosing, 46.2, kg, 06/09/22 20:01:00 EDT, Weight Dosing Start Date: 07/28/22 Status: Ordered ondansetron 4 mg oral tablet, disintegrating 4 mg = 1 tab, Oral, every 6 hr, PRN other (see comment), as needed Start Date: 04/08/22 Status: Ordered oxyCODONE 10 mg oral tablet 10 mg = 1 tab, Oral, BID, PRN as needed, # 14 tab, 0 Refill(s), Pharmacy: [facility], 152, cm, 10/14/22 14:28:00 EST, Height/Length Dosing, 44, kg, 10/14/22 14:28:00 EST, Weight Dosing Start Date: 10/21/22 Stop Date: 10/28/22 Status: Ordered oxyCODONE 5 mg oral tablet See Instructions, 1-2 po every 8 hours prn migraine., # 5 tab, 0 Refill(s), Pharmacy: [facility], 152, cm, 10/14/22 14:28:00 EST, Height/Length Dosing, 44, kg, 10/14/22 14:28:00 EST, WeightDosing Start Date: 10/29/22 Status: Ordered predniSONE 10 mg oral tablet See Instruction, Oral, Daily, 4 tabs daily x3 days, 3 tabs daily x3 days, 2 tabs daily x3 days, 1 tab daily x3 days, # 30 tab, 0 Refill(s), Pharmacy: [facility], 152, cm, 10/14/22 14:28:00 EST, Height/Length Dosing, 44, kg, 10/14/22 14:28:00... Start Date: 10/29/22 Status: Ordered rOPINIRole 2 mg oral tablet See Instructions, TAKE TWO TABLETS BY MOUTH EVERY DAY AT BEDTIME, # 120 tab, 0 Refill(s), Pharmacy:[facility], 152.4, cm, 06/09/22 20:01:00 EDT, Height/Length Dosing, 46.2, kg, 06/09/22 20:01:00 EDT, Weight Dosing Start Date: 08/09/22 Status: Ordered Singulair 10 mg oral tablet 10 mg = 1 tab, Oral, Daily Start Date: 04/08/22 Status: Ordered SUMAtriptan 100 mg oral tablet 100 mg = 1 tab, Oral, BID, PRN as needed for migraine headache, TAKE ONE TABLET BY MOUTH TWICE A DAY NEEDED FOR 30 DAYS, # 9 tab, 1 Refill(s), Pharmacy: [facility], 152.4, cm, 06/09/22 20:01:00 EDT, Height/Length Dosing, 46.2, kg, ... Start Date: 09/23/22 Status: Ordered Ventolin HFA 90 mcg/inh inhalation aerosol 2 puffs, Inhale, every 4 hr, 0 Refill(s) Start Date: 04/07/22 Status: Ordered Mental Status 11/04/22 Eye Opening Response [place] Spontaneous ly Best Verbal Response Genna Oriented Best Motor Response Genna Obeys comman ds Genna Coma Score 15 Problem List Condition Confirmation Course Effective Dates [...] Depression Confirmed Active Difficulty speaking Confirmed Active Dysphagia Confirmed 02/24/11 Active Elevated [...] Confirmed 08/19/21 Active Restless legs Confirmed Active Right-sided piriformis [...] 16times 2 Results Laboratory List Name Date Lactic Acid 11/04/22 Urinalysis Microscopic 11/04/22 Urinalysis with Micro if Indicated and C ulture if Indicated 11/04/22 .Manual Differential (NCTY) 11/04/22 CBC w/ Diff 11/04/22 Comprehensive Metabolic Panel (CMP) 11/04 Procalcitonin 11/04/22 Most recent to oldest [Reference Range]: 1 WBC [5.0-10.0 x10^3/mcL] 15.4 x10^3/mcL *HI* (11/04/22 6:05 PM) RBC [4.1-5.3 x10^6/mcL] 4.0 x10^6/mcL *LOW* (11/04/22 6:05 PM) Segs Man [40-75 %] 94 % *HI* (11/04/22 6:05 PM) Lymph Man [20-50 %] 5 % *LOW* (11/04/22 6:05 PM) Gaston Man 1 % *NA* (11/04/22 6:05 PM) Eos Man 0 % *NA* (11/04/22 6:05 PM) BUN [7-18 mg/dL] 12 mg/dL (11/04/22 6:05 PM) UA Color Yellow (11/04/22 6:44 PM) UA WBC [0-3] 0-3 (11/04/22 6:44 PM) Glucose Level [74-106 mg/dL] 126 mg/dL *HI* (11/04/22 6:05 PM) Potassium Level [3.5-5.1 mmol/L] 4.3 mmo l/L (11/04/22 6:05 PM) MCV [80.0-96.0] 93.4 (11/04/22 6:05 PM) UA Urobilinogen Normal (11/04/22 6:44 PM) RBC Morph Normal (11/04/22 6:05 PM) UA Bili [Negative] Negative (11/04/22 6:44 PM) UA Ketones Negative (11/04/22 6:44 PM) AST [15-37 unit/L] 14 unit/L *LOW* (11/04/22 6:05 PM) ALT [14-59 unit/L] 20 unit/L (11/04/22 6:05 PM) MCHC [31.0-35.0 g/dL] 32.8 g/dL (11/04/22 6:05 PM) Sodium Level [136-145 mmol/L] 135 mmol/L *LOW* (11/04/22 6:05 PM) UA RBC [0-2] 5-10 (11/04/22 6:44 PM) UA Leuk Est Negative (11/04/22 6:44 PM) UA Nitrite Negative (11/04/22 6:44 PM) UA Glucose [Negative] Negative (11/04/22 6:44 PM) Hct [37.0-47.0 %] 36.9 % *LOW* (11/04/22 6:05 PM) UA Bacteria None Seen /HPF (11/04/22 6:44 PM) Calcium Level [8.5-10.1 mg/dL] 9.3 mg/dL (11/04/22 6:05 PM) Albumin Level [3.4-5.0 g/dL] 3.6 g/dL (11/04/22 6:05 PM) Protein Total [6.4-8.2 g/dL] 7.4 g/dL (11/04/22 6:05 PM) UA Protein Negative (11/04/22 6:44 PM) MCH [26.0-32.0 pg] 30.6 pg (11/04/22 6:05 PM) Bilirubin Total [0.2-1.0 mg/dL] 0.5 mg/d L (11/04/22 6:05 PM) Hgb [12.0-16.0 g/dL] 12.1 g/dL (11/04/22 6:05 PM) Alk Phos [46-146 unit/L] 101 unit/L (11/04/22 6:05 PM) UA Blood 1+ *ABN* (11/04/22 6:44 PM) UA Mucous None Seen /HPF (11/04/22 6:44 PM) Band Man [0-5 %] 0 % (11/04/22 6:05 PM) UA Spec Grav 1.010 *NA* (11/04/22 6:44 PM) Platelets [130-450 x10^3/mcL] 563 x10^3/ mcL *HI* (11/04/22 6:05 PM) CO2 [21-32 mmol/L] 27 mmol/L (11/04/22 6:05 PM) Lactic Acid Lvl [0.7-2.1 mmol/L] 0.6 mmo l/L *LOW* (11/04/22 7:08 PM) UA Squam Epithelial [None Seen] Rare (11/04/22 6:44 PM) UA pH 6.0 *NA* (11/04/22 6:44 PM) eGFR Non-AA [>=60] 70 (11/04/22 6:05 PM) eGFR AA [>=60] 70 (11/04/22 6:05 PM) UA Appear Clear (11/04/22 6:44 PM) Chloride Level [98-107 mmol/L] 100 mmol/ L (11/04/22 6:05 PM) Procalcitonin [0.00-0.50 ng/mL] <0.15 ng /mL (11/04/22 6:05 PM) RDW-CV [11.7-17.0 %] 14.6 % (11/04/22 6:05 PM) UA Culture Ind?. Not Indicated (11/04/22 6:44 PM) Abs Neut Man 14.5 x10^3/mcL *NA* (11/04/22 6:05 PM) Creatinine Level [0.55-1.02 mg/dL] 0.89 mg/dL (11/04/22 6:05 PM) Baso Man [0-1 %] 0 % (11/04/22 6:05 PM) Vital Signs Most recent to oldest [Reference Range]: 1 2 Temperature Temporal Artery [36-38 Deg C ] 36.7 Deg C (11/04/22 7:04 PM) 36.5 Deg C (11/04/22 5:18 PM) Peripheral Pulse Rate [60-100 bpm] 88 bp m (11/04/22 7:04 PM) 103 bpm *HI* (11/04/22 5:18 PM) Heart Rate Monitored [60-100 bpm] 89 bpm (11/04/22 7:04 PM) Respiratory Rate [12-24 br/min] 15 br/mi n (11/04/22 7:04 PM) 18 br/min (11/04/22 5:18 PM) Blood Pressure [90-140/60-90 mmHg] 150/1 01mmHg *HI* (11/04/22 7:04 PM) 156/97mmHg *HI* (11/04/22 5:18 PM) Weight Dosing 44.00 kg (11/04/22 5:29 PM) Weight Estimated 44.00 kg (11/04/22 5:18 PM) Height/Length Dosing 152.000 cm (11/04/22 5:29 PM) Height/Length Estimated 152.000 cm (11/04/22 5:18 PM) Social History Social History Type Response Tobacco Current everyday tob acco user Tobacco Use:. 1 Sex Female 08/25 to one pack a day [id number], restared smoking 2015 10 PPD Implantable Device List Procedure Provider Procedure Date Device Type Site Repair initial incisional or ventral hernia; [facility]22 Non Biological Abdomen Device Identifier Serial Number Lot or Batch Number Manufacturing Date Expiration Date Distinct Identification Code MRI Safety Implantable Status Assigning Authority Unknown Unknown [id number] Unknown 07/20/22 Unknown Unknown Active Unknown Physician Emergency department Note * Major Urbina MD: PERFORM Event Display: ED Note Physician Authored Date: [id number] KELLEE LICONA :1950 Age:71 years Sex:Female Visit Date:11/04/2022 Primary Care Physician: Major Hirsch DO Name: Tri Licona?? CC: Altered mental status?? HPI: Patient reports feeling lightheaded today. ??She reports feeling unsteady on her feet. ??She fell down stairs this morning with minor injury to her back. ??Since that time she has had episodes of being confused. Independent History??(1 pt): Daughter reports episodes of confusion. ??Sometimes she is unable to correctly name her children. ??She treated her back injury from this morning with ibuprofen. ??She has been not sleeping well since October 08 with the of her spouse. ??She has had constant headache since that time. ??Med/Surg/Fam/Soc Hx: Not noted?? External Notes??(1 pt): None reviewed Medications: Not noted ROS: Review of systems is positive for temperature to 100.4 today. ??Negative for chest pain, cough, shortness of breath, upper respiratory symptoms, GI symptoms, abnormal bleeding. ??She does endorse dysuria and headache. Exam: Patient is in no acute distress. ??She converses normally. ??Establishes maintains eye contact. ??She does speak softly. ??Breath sounds are generally diminished. ??Heart sounds are normal. ??Abdomen is soft and nontender peer extremities are normal. ??Patient is not oriented to day of the week. Labs??(2 pts): WBC is elevated to 15.4 with 95% segments. ??Chemistries are normal. ??Procalcitoninis normal. ??Urinalysis is normal except for 1+ blood. ??No bacteria are seen on urine sediment. ??Patient denies cough or shortness of breath. ??imaging: Not relevant Independent Test Interpretatiion??(1 pt): Electrocardiogram shows a rate of 97, sinus rhythm, no significant ST deviation. Discussion/consultation (1 pt):??None ?? Medical Decision Making: ?Problem Complexity: Acute illness (low) ?Data Complexity: Low?Risk of Management: Low ?Codin Diff Dx and Evaluation: Patient has evidence of a new infection with no focal findings. ??CT of head is negative indicating no damage from recent trauma well on a novel anticoagulant. ED Course: Not noted Disposition:?? Impression: Fever, viral syndrome Patient Instructions: There is no evidence of any serious problem causing your transient confusion.??You do have evidence of a mild infection. ??Treat any fever with Tylenol and/or ibuprofen. ??There should be improvement and not worsening. ??Follow-up with your primary care provider as needed. For your sleep troubles at night you may try an additional dose of lorazepam when you wake up. Electronically Signed on 11/04/22 07:58 PM Major Urbina MD Emergency department Discharge instructions * Major Urbina MD: PERFORM Event Display: ED Discharge Information Authored Date: [id number] LIVAN KELLEE D :1950 Age:71 years Sex:Female Visit Date:11/04/2022 Primary Care Physician: Major Hirsch DO Discharge Instructions We would like to thank you for allowing us to assist you with your healthcare needs. The following includes patient education materials and information regarding your injury/illness. Discharge Vitals Temperature??(Temporal Artery) 98.1 ??F (36.7 ??C) Heart Rate??(Peripheral) 88 Heart Rate??(Monitored) 89 Respiratory Rate?? 15 Blood Pressure?? 150/101?? Height?? 59.84 in (152.000 cm) Weight??(Estimated) 97.02 lb (44.00 kg) Allergies No Known Medication Allergies What to Do Next Instructions from Your Care Team There is no evidence of any serious problem causing your transient confusion. ??You do have evidence of a mild infection. ??Treat any fever with Tylenol and/or ibuprofen. ??There should be improvement and not worsening. ??Follow-up with your primary care provider as needed. For your sleep troubles at night you may try an additional dose of lorazepam when you wake up. Upcoming Scheduled Appointments Tuesday 3:40 PM EST ?? You were treated today on [...] Inhale (breathe in) Every 4 hours Unchanged amitriptyline (amitriptyline 25 mg oral tablet) 2 tab Oral (given by mouth) Every night at bedtime Worsening headaches Unchanged apixaban (Eliquis 2.5 mg oral tablet) 1 tab Oral [...] comment) as needed ?? Unchanged oxyCODONE (oxyCODONE 10 mg oral tablet) 1 tab Oral (given by mouth) 2 times a day as needed for as needed Worsening headaches Duration: 7 Days Unchanged oxyCODONE (oxyCODONE 5 mg oral tablet) See instructions Migraine 1-2 po every 8 hours prn migraine. ?? Unchanged predniSONE (predniSONE 10 mg oral tablet) See Instruction Oral (given by mouth) Every day Headache 4 tabs daily x3 days, 3 tabs daily x3 days, 2 tabs daily x3 days, 1 tab daily x3 days ?? Unchanged rOPINIRole (rOPINIRole 2 mg oral tablet) See instructions TAKE TWO TABLETS BY MOUTH EVERY DAY AT BEDTIME ?? Unchanged SUMAtriptan (SUMAtriptan 100 mg oral tablet) 1 tab Oral (given by mouth) 2 times a day as needed for as needed for migraine headache TAKE ONE TABLET BY MOUTH TWICE A DAY NEEDED FOR 30 DAYS ?? Tests Performed Medications and Immunizations Administered Given acetaminophen, 650 mg, Oral ibuprofen, 400 mg, Oral rOPINIRole, 2 mg, Oral Lab Test Name Test Result Date/Time WBC 15.4 x10^3/mcL 11/04/2022 18:05 EST RBC 4.0 x10^6/mcL 11/04/2022 18:05 EST Hgb 12.1 g/dL 11/04/2022 18:05 EST Hct 36.9 % 11/04/2022 18:05 EST MCV 93.4 11/04/2022 18:05 EST MCH 30.6 pg 11/04/2022 18:05 EST MCHC 32.8 g/dL 11/04/2022 18:05 EST RDW-CV 14.6 % 11/04/2022 18:05 EST Platelets 563 x10^3/mcL 11/04/2022 18:05 EST Segs Man 94 % 11/04/2022 18:05 EST Lymph Man 5 % 11/04/2022 18:05 EST Gaston Man 1 % 11/04/2022 18:05 EST Eos Man 0 % 11/04/2022 18:05 EST Baso Man 0 % 11/04/2022 18:05 EST Band Man 0 % 11/04/2022 18:05 EST Abs Neut Man 14.5 x10^3/mcL 11/04/2022 18:05 EST RBC Morph Normal 11/04/2022 18:05 EST Sodium Level 135 mmol/L 11/04/2022 18:05 EST Potassium Level 4.3 mmol/L 11/04/2022 18:05 EST Chloride Level 100 mmol/L 11/04/2022 18:05 EST CO2 27 mmol/L 11/04/2022 18:05 EST Alk Phos 101 unit/L 11/04/2022 18:05 EST AST 14 unit/L 11/04/2022 18:05 EST ALT 20 unit/L 11/04/2022 18:05 EST BUN 12 mg/dL 11/04/2022 18:05 EST Glucose Level 126 mg/dL 11/04/2022 18:05 EST Creatinine Level 0.89 mg/dL 11/04/2022 18:05 EST eGFR AA 70 11/04/2022 18:05 EST eGFR Non-AA 70 11/04/2022 18:05 EST Calcium Level 9.3 mg/dL 11/04/2022 18:05 EST Protein Total 7.4 g/dL 11/04/2022 18:05 EST Albumin Level 3.6 g/dL 11/04/2022 18:05 EST Bilirubin Total 0.5 mg/dL 11/04/2022 18:05 EST Lactic Acid Lvl 0.6 mmol/L 11/04/2022 19:08 EST Procalcitonin <0.15 ng/mL 11/04/2022 18:05 EST UA Color YELLOW. 11/04/2022 18:44 EST UA Appear CLEAR. 11/04/2022 18:44 EST UA Glucose NEGATIVE 11/04/2022 18:44 EST UA Bili NEGATIVE 11/04/2022 18:44 EST UA Ketones NEGATIVE 11/04/2022 18:44 EST UA Spec Grav 1.010 11/04/2022 18:44 EST UA Blood 1+ 11/04/2022 18:44 EST UA pH 6.0 11/04/2022 18:44 EST UA Protein NEGATIVE 11/04/2022 18:44 EST UA Urobilinogen 0.2 Uro 11/04/2022 18:44 EST UA Nitrite NEGATIVE 11/04/2022 18:44 EST UA Leuk Est NEGATIVE 11/04/2022 18:44 EST UA Culture Ind?. Not Indicated 11/04/2022 18:44 EST UA WBC 0-3 11/04/2022 18:44 EST UA RBC 5-10 11/04/2022 18:44 EST UA Squam Epithelial Rare 11/04/2022 18:44 EST UA Mucous None Seen 11/04/2022 18:44 EST UA Bacteria None Seen 11/04/2022 18:44 EST Patient/Qualifications Examiner Signature Patient Name:LIVAN KELLEE D I have received this information and my questions have been answered. Patient/Qualifications Examiner Name: Patient/Qualifications Examiner Signature: Relationship to Patient: Witness Name/Signature: Date: Electronically Signed on: 11/04/2022 19:59 ESTSigned by:[facility] Emergency department Note * Beverly Kelley A: PERFORM Event Display: ED Notes Authored Date: [id number] Patient Care team information Personnel Name: Major Hirsch DO Address: Address: [place] [facility] C Moran [address] [place] [phone]
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
--- OUTSIDE RECORDS SUMMARY | 2023-09-12 13:48 | XMS_ITS | Continuity of Care Document ---
Author Name Unknown Organization [facility] Address [address] [place] [address] Care Team Providers Care Hr Business Partner Consultant Name Role Phone Annette Conroy Primary Care Physician [phone] Encounter [facility] Date(s): 06/03/23 - 06/03/23 [facility] [address] [place] [address] Discharge Disposition: Home Allergies, Adverse Reactions, Alerts [...] 08/03/22 * Antibody Screen Gel 05/12/23 Radiology* CT Brain/Head w/o Contrast 06/03/23 * MG Mammo Digital Screening Bilateral 06/02/23 * CT Low Dose Lung Screening 06/02/23 [...] Recorded tetanus/diphth/pertuss (Tdap) adult/adol 11/16/11 Recorded Novel [id number], all formulation 11/25/09 Recorded pneumococcal 23-polyvalent vaccine 08/23/02 Record ed 1Result Comment: Unit: Unknown Director Post: [employer] 2Result Comment: Unit: Unknown Director Post: [employer] 3Result Comment: Unit: Unknown Director Post: [employer] Medications acetaminophen 500 mg oral capsule 1,000 mg = 2 cap, Oral, every 6 hr Start Date: 04/08/22 Status: Ordered amitriptyline 25 mg oral tablet 25 mg = 1 tab, TAKE ONE TABLET BY MOUTH EVERY NIGHT AT BEDTIME Start Date: 05/25/23 Status: Ordered cyclobenzaprine 5 mg oral tablet 1 tab, Oral, TID, # 42 tab, 3 Refill(s), Pharmacy: [facility], 152, cm, 01/08/23 21:48:00EDT, Height/Length Dosing, 41, kg, 01/08/23 21:48:00 EDT, Weight Dosing Start Date: 04/15/23 Stop Date: 04/29/23 Status: Ordered Eliquis 2.5 mg oral tablet TAKE ONE TABLET BY MOUTH TWICE A DAY Start Date: 05/25/23 Status: Ordered gabapentin 300 mg oral capsule 900 mg = 3 cap, Oral, BID, 3 cap bid, # 540 cap, 3 Refill(s), Pharmacy: [facility], 152, cm, 11/04/22 17:29:00 EST, Height/Length [...] Daily, # 90 tab, 2 Refill(s), Pharmacy: [facility], 152, cm, 11/04/22 17:29:00 EST, Height/Length Dosing, 44, kg, 11/04/22 17:29:00 EST, Weight Dosing Start Date: 12/24/22 Status: Ordered LORazepam 2 mg oral tablet 2 mg = 1 tab, Oral, BID, PRN as needed for anxiety, TAKE ONE TABLET BY MOUTH EVERY DAY AT BEDTIME NEEDED may take second tab mid night if needed, # 56 tab, 5 Refill(s), Pharmacy: [facility]58, 149, cm, 05/19/23 17:18:00 EDT, Height/Length Dosing, 43.09, kg, 05/19/23 17:18:00 EDT, Weight Dosing Start Date: 05/26/23 Status: Ordered nicotine 14 mg/24 hr transdermal film, extended release 1 patches, TD, Daily, # 14 patches, 0 Refill(s), Pharmacy: [facility]58, 149, cm, 05/19/23 17:18:00 EDT, Height/Length Dosing, 43.09, kg, 05/19/23 17:18:00 EDT, Weight Dosing Start Date: 06/02/23 Status: Ordered nicotine 7 mg/24 hr transdermal film, extended release 1 patches, TD, Daily, # 7 patches, 0 Refill(s), Pharmacy: [facility]58, 149, cm, 05/19/23 17:18:00 EDT, Height/Length Dosing, 43.09, kg, 05/19/23 17:18:00 EDT, Weight Dosing Start Date: 06/02/23 Status: Ordered omeprazole 40 mg oral delayed release capsule 40 mg = 1 cap, Oral, Daily, # 90 cap, 3 Refill(s), Pharmacy: [facility]58, 152, cm, 11/04/22 17:29:00 EST, Height/Length Dosing, 44, kg, 11/04/22 17:29:00 EST, Weight Dosing Start Date: 12/24/22 Status: Ordered ondansetron 4 mg oral tablet, disintegrating 4 mg = 1 tab, Oral, every 6 hr, PRN other (see comment), as needed, # 120 tab, 1 Refill(s), Pharmacy: [facility] #58, 152, cm, 11/04/22 17:29:00 EST, Height/Length Dosing, 44, kg, 11/04/22 17:29:00 EST, Weight Dosing Start Date: 12/24/22 Status: Ordered predniSONE 10 mg oral tablet 0 Refill(s) Start Date: 05/25/23 Status: Ordered PreserVision AREDS Lutein oral capsule 1 caps, Oral, Daily, 0 Refill(s) Start Date: 02/02/23 Status: Ordered rOPINIRole 2 mg oral tablet 2 tab, Oral, Daily, # 60 tab, 3 Refill(s), Pharmacy: [facility]58, 152, cm, 01/08/23 21:48:00 EDT, Height/Length Dosing, 41, kg, 01/08/23 21:48:00 EDT, Weight Dosing Start Date: 04/13/23 Status: Ordered sertraline 25 mg oral tablet TAKE ONE TABLET BY MOUTH EVERY DAY Start Date: 05/25/23 Status: Ordered Singulair 10 mg oral tablet 10 mg = 1 tab, Oral, Daily, # 90 tab, 3 Refill(s), Pharmacy: [facility]58, 152, cm, 11/04/22 17:29:00 EST, Height/Length Dosing, 44, kg, 11/04/22 17:29:00 EST, Weight Dosing Start Date: 12/24/22 Status: Ordered SUMAtriptan 100 mg oral tablet See Instructions, TAKE ONE TABLET BY MOUTH TWICE A DAY NEEDED FOR MIGRAINE HEADACHE, # 9 tab, 1 Refill(s), Pharmacy: [facility]58, 152, cm, 01/08/23 21:48:00 EDT, Height/Length Dosing, 41,kg, 01/08/23 21:48:00 EDT, Weight Dosing Start Date: 03/06/23 Status: Ordered traMADol 50 mg oral tablet 50 mg = 1 tab, Oral, every 12 hr, PRN as needed for pain, # 56 tab, 0 Refill(s), Pharmacy: [facility] #58, 149, cm, 05/19/23 17:18:00 EDT, Height/Length Dosing, 43.09, kg, 05/19/23 17:18:00 EDT, Weight Dosing Start Date: 06/01/23 Stop Date: 06/29/23 Status: Ordered traZODone 100 mg oral tablet 100 mg = 1 tab, Oral, every night at bedtime, # 90 tab, 3 Refill(s), Pharmacy: [facility]58, 152, cm, 11/04/22 17:29:00 EST, Height/Length [...] Completed Elective delivery 18 Completed 1Esophagogastroduodenoscopy with [id number] esophageal dilatation 2foreign body (suture) 3Takedown Enterocutaneous [...] initial incisional or ventral hernia; reducible Erasto NCHTomas MD 06/09/22 Non Biological Abdomen Device Identifier Serial Number Lot or Batch Number Manufacturing Date Expiration Date Distinct Identification Code MRI Safety Implantable Status Assigning Authority Unknown Unknown [id number] Unknown 07/20/22 Unknown Unknown Active Unknown Patient Care team information Care Team Personnel Name: Major Hirsch DO Position: Physician Member Role: Informed Provider Address: Address: [place] [facility] [address] [address]- [place] Name: Annette Conroy MD Position: Physician Member Role: Primary Care Physician Address: Address: [address] [place] [phone] Care Team Related Persons Name: RAFAEL ANDRES Address: Home Name: HARI LICONA Address: Home
--- OUTSIDE RECORDS SUMMARY | 2023-09-12 13:48 | XMS_ITS | Continuity of Care Document ---
Author Name Unknown Organization [facility] Address [address] [place] [address] Care Team Providers Care [employer] Paralegal Name Role Phone Annette Conroy Primary Care Physician Encounter [facility] Date(s): 06/02/23 - 06/02/23 [facility] [address] [place] [address] Discharge Disposition: Home Allergies, Adverse Reactions, Alerts [...] Antibody Screen Gel 05/12/23 Radiology* CT Brain/Head w/ + w/o Contrast 06/02/23 * MG Mammo Digital Screening Bilateral 06/02/23 [...] Recorded tetanus/diphth/pertuss (Tdap) adult/adol 11/16/11 Recorded Novel [id number], all formulation 11/25/09 Recorded pneumococcal 23-polyvalent vaccine 08/23/02 Record ed 1Result Comment: Unit: Unknown Artificial Pearl Maker: Sanofi Pasteur 2Result Comment: Unit: Unknown Artificial Pearl Maker: Sanofi Pasteur 3Result Comment: Unit: Unknown Artificial Pearl Maker: Sanofi Pasteur Medications acetaminophen 500 mg oral capsule 1,000 mg = 2 cap, Oral, every 6 hr Start Date: 04/08/22 Status: Ordered amitriptyline 25 mg oral tablet 25 mg = 1 tab, TAKE ONE TABLET BY MOUTH EVERY NIGHT AT BEDTIME Start Date: 05/25/23 Status: Ordered cyclobenzaprine 5 mg oral tablet 1 tab, Oral, TID, # 42 tab, 3 Refill(s), Pharmacy: [facility] #58, 152, cm, 01/08/23 21:48:00EDT, Height/Length Dosing, 41, kg, 01/08/23 21:48:00 EDT, Weight Dosing Start Date: 04/15/23 Stop Date: 04/29/23 Status: Ordered Eliquis 2.5 mg oral tablet TAKE ONE TABLET BY MOUTH TWICE A DAY Start Date: 05/25/23 Status: Ordered gabapentin 300 mg oral capsule 900 mg = 3 cap, Oral, BID, 3 cap bid, # 540 cap, 3 Refill(s), Pharmacy: [facility] #58, 152, cm, 11/04/22 17:29:00 EST, Height/Length [...] Daily, # 90 tab, 2 Refill(s), Pharmacy: [facility] #58, 152, cm, 11/04/22 17:29:00 EST, Height/Length Dosing, 44, kg, 11/04/22 17:29:00 EST, Weight Dosing Start Date: 12/24/22 Status: Ordered LORazepam 2 mg oral tablet 2 mg = 1 tab, Oral, BID, PRN as needed for anxiety, TAKE ONE TABLET BY MOUTH EVERY DAY AT BEDTIME NEEDED may take second tab mid night if needed, # 56 tab, 5 Refill(s), Pharmacy: [facility] #58, 149, cm, 05/19/23 17:18:00 EDT, Height/Length Dosing, 43.09, kg, 05/19/23 17:18:00 EDT, Weight Dosing Start Date: 05/26/23 Status: Ordered nicotine 14 mg/24 hr transdermal film, extended release 1 patches, TD, Daily, # 14 patches, 0 Refill(s), Pharmacy: [facility] #58, 149, cm, 05/19/23 17:18:00 EDT, Height/Length Dosing, 43.09, kg, 05/19/23 17:18:00 EDT, Weight Dosing Start Date: 06/02/23 Status: Ordered nicotine 7 mg/24 hr transdermal film, extended release 1 patches, TD, Daily, # 7 patches, 0 Refill(s), Pharmacy: [facility] #58, 149, cm, 05/19/23 17:18:00 EDT, Height/Length Dosing, 43.09, kg, 05/19/23 17:18:00 EDT, Weight Dosing Start Date: 06/02/23 Status: Ordered omeprazole 40 mg oral delayed release capsule 40 mg = 1 cap, Oral, Daily, # 90 cap, 3 Refill(s), Pharmacy: [facility] #58, 152, cm, 11/04/22 17:29:00 EST, Height/Length Dosing, 44, kg, 11/04/22 17:29:00 EST, Weight Dosing Start Date: 12/24/22 Status: Ordered ondansetron 4 mg oral tablet, disintegrating 4 mg = 1 tab, Oral, every 6 hr, PRN other (see comment), as needed, # 120 tab, 1 Refill(s), Pharmacy: [facility] #58, 152, cm, 11/04/22 17:29:00 EST, Height/Length Dosing, 44, kg, 11/04/22 17:29:00 EST, Weight Dosing Start Date: 12/24/22 Status: Ordered predniSONE 10 mg oral tablet 0 Refill(s) Start Date: 05/25/23 Status: Ordered PreserVision AREDS Lutein oral capsule 1 caps, Oral, Daily, 0 Refill(s) Start Date: 02/02/23 Status: Ordered rOPINIRole 2 mg oral tablet 2 tab, Oral, Daily, # 60 tab, 3 Refill(s), Pharmacy: [facility] #58, 152, cm, 01/08/23 21:48:00 EDT, Height/Length Dosing, 41, kg, 01/08/23 21:48:00 EDT, Weight Dosing Start Date: 04/13/23 Status: Ordered sertraline 25 mg oral tablet TAKE ONE TABLET BY MOUTH EVERY DAY Start Date: 05/25/23 Status: Ordered Singulair 10 mg oral tablet 10 mg = 1 tab, Oral, Daily, # 90 tab, 3 Refill(s), Pharmacy: [facility] #58, 152, cm, 11/04/22 17:29:00 EST, Height/Length Dosing, 44, kg, 11/04/22 17:29:00 EST, Weight Dosing Start Date: 12/24/22 Status: Ordered SUMAtriptan 100 mg oral tablet See Instructions, TAKE ONE TABLET BY MOUTH TWICE A DAY NEEDED FOR MIGRAINE HEADACHE, # 9 tab, 1 Refill(s), Pharmacy: [facility] #58, 152, cm, 01/08/23 21:48:00 EDT, Height/Length Dosing, 41,kg, 01/08/23 21:48:00 EDT, Weight Dosing Start Date: 03/06/23 Status: Ordered traMADol 50 mg oral tablet 50 mg = 1 tab, Oral, every 12 hr, PRN as needed for pain, # 56 tab, 0 Refill(s), Pharmacy: [facility] #58, 149, cm, 05/19/23 17:18:00 EDT, Height/Length Dosing, 43.09, kg, 05/19/23 17:18:00 EDT, Weight Dosing Start Date: 06/01/23 Stop Date: 06/29/23 Status: Ordered traZODone 100 mg oral tablet 100 mg = 1 tab, Oral, every night at bedtime, # 90 tab, 3 Refill(s), Pharmacy: [facility] #58, 152, cm, 11/04/22 17:29:00 EST, Height/Length [...] Completed Elective delivery 18 Completed 1Esophagogastroduodenoscopy with ayko-mju-kmol esophageal dilatation 2foreign body (suture) 3Takedown Enterocutaneous [...] incisional or ventral hernia; reducible [facility] 06/09/22 Non Biological Abdomen Device Identifier Serial Number Lot or Batch Number Manufacturing Date Expiration Date Distinct Identification Code MRI Safety Implantable Status Assigning Authority Unknown Unknown [id number] Unknown 07/20/22 Unknown Unknown Active Unknown Patient Care team information Care Team Personnel Name: Major Hirsch DO Position: Physician Member Role: Informed Provider Address: Address: [facility] [address] [address]- [place] Name: Annette Conroy MD Position: Physician Member Role: Primary Care Physician Address: Address: [address] [place] [id number] Care Team Related Persons Name: RAFAEL ANDRES Name: HARI LICONA
--- OUTSIDE RECORDS SUMMARY | 2023-09-12 13:48 | XMS_ITS | Continuity of Care Document ---
Author Name Unknown Organization [facility] Address [address] [place] [address] Care Team Providers Care Residential Property Consultant Name Role Phone Annette Conroy Primary Care Phys[facility] [address] [place] [address] Discharge Disposition: Home or Self Care Attending [...] Recorded tetanus/diphth/pertuss (Tdap) adult/adol 11/16/11 Recorded Novel [id number], all formulation 11/25/09 Recorded pneumococcal 23-polyvalent vaccine 08/23/02 Record ed 1Result Comment: Unit: Unknown Gas Appliance Installer: Sanofi Pasteur 2Result Comment: Unit: Unknown Gas Appliance Installer: Sanofi Pasteur 3Result Comment: Unit: Unknown Gas Appliance Installer: Sanofi Pasteur Medications acetaminophen 500 mg oral capsule 1,000 mg = 2 cap, Oral, every 6 hr Start Date: 04/08/22 Status: Ordered cyclobenzaprine 5 mg oral tablet 1 tab, Oral, TID, # 42 tab, 3 Refill(s), Pharmacy: [facility] #58, 149, cm, 05/19/23 17:18:00EDT, Height/Length Dosing, 43.09, kg, 05/19/23 17:18:00 EDT, Weight Dosing Start Date: 06/13/23 Stop Date: 06/27/23 Status: Ordered doxycycline hyclate 100 mg oral tablet 100 mg = 1 tab, Oral, BID, X 10 days, # 20 tab, 0 Refill(s), 06/27/23 10:02:00 AM CDT, Pharmacy: [facility] #58, 149, cm, 06/17/23 8:16:00 EDT, Height/Length Dosing, 42, kg, 06/17/23 8:16:00 EDT,Weight Dosing Start Date: 06/17/23 Stop Date: 06/27/23 Status: Ordered fludrocortisone 0.1 mg oral tablet 0.05 mg = 0.5 tab, Oral, Daily, # 7 tab, 0 Refill(s), Pharmacy: [facility] #58, 149, cm, 06/17/23 8:16:00 EDT, Height/Length Dosing, 42, kg, 06/17/23 8:16:00 EDT, Weight Dosing Start Date: 06/21/23 Stop Date: 07/05/23 Status: Ordered gabapentin 300 mg oral capsule 900 mg = 3 cap, Oral, BID, 3 cap bid, # 540 cap, 3 Refill(s), Pharmacy: [facility] #58, 152, cm, 11/04/22 17:29:00 EST, Height/Length Dosing, 44, kg, 11/04/22 17:29:00 EST, Weight Dosing Start Date: 12/24/22 Status: Ordered levothyroxine 125 mcg (0.125 mg) oral tablet 125 mcg = 1 tab, Oral, Daily, # 90 tab, 2 Refill(s), Pharmacy: [facility] #58, 152, cm, 11/04/22 17:29:00 EST, Height/Length Dosing, 44, kg, 11/04/22 17:29:00 EST, Weight Dosing Start Date: 12/24/22 Status: Ordered LORazepam 2 mg oral tablet 2 mg = 1 tab, Oral, BID, PRN as needed for anxiety, TAKE ONE TABLET BY MOUTH EVERY DAY AT BEDTIME NEEDED may take second tab mid night if needed, # 56 tab, 5 Refill(s), Pharmacy: [facility] #58, 149, cm, 05/19/23 17:18:00 EDT, Height/Length Dosing, 43.09, kg, 05/19/23 17:18:00 EDT, Weight Dosing Start Date: 05/26/23 Status: Ordered nicotine 14 mg/24 hr transdermal film, extended release 1 patches, TD, Daily, # 14 patches, 2 Refill(s), Pharmacy: [facility] #58, 149, cm, 05/19/23 17:18:00 EDT, Height/Length Dosing, 43.09, kg, 05/19/23 17:18:00 EDT, Weight Dosing Start Date: 06/11/23 Status: Ordered omeprazole 40 mg oral delayed release capsule 40 mg = 1 cap, Oral, Daily, # 90 cap, 3 Refill(s), Pharmacy: [facility] #58, 152, cm, 11/04/22 17:29:00 EST, Height/Length Dosing, 44, kg, 11/04/22 17:29:00 EST, Weight Dosing Start Date: 12/24/22 Status: Ordered ondansetron 4 mg oral tablet, disintegrating 4 mg = 1 tab, Oral, every 6 hr, PRN other (see comment), as needed, # 120 tab, 1 Refill(s), Pharmacy: [facility] #58, 152, cm, 11/04/22 17:29:00 EST, Height/Length Dosing, 44, kg, 11/04/22 17:29:00 EST, Weight Dosing Start Date: 12/24/22 Status: Ordered PreserVision AREDS Lutein oral capsule 1 caps, Oral, Daily, 0 Refill(s) Start Date: 02/02/23 Status: Ordered rOPINIRole 2 mg oral tablet 2 tab, Oral, Daily, # 60 tab, 3 Refill(s), Pharmacy: [facility] #58, 152, cm, 01/08/23 21:48:00 EDT, Height/Length Dosing, 41, kg, 01/08/23 21:48:00 EDT, Weight Dosing Start Date: 04/13/23 Status: Ordered Singulair 10 mg oral tablet 10 mg = 1 tab, Oral, Daily, # 90 tab, 3 Refill(s), Pharmacy: [facility] #58, 152, cm, 11/04/22 17:29:00 EST, Height/Length Dosing, 44, kg, 11/04/22 17:29:00 EST, Weight Dosing Start Date: 12/24/22 Status: Ordered SUMAtriptan 100 mg oral tablet See Instructions, TAKE ONE TABLET BY MOUTH TWICE A DAY NEEDED FOR MIGRAINE HEADACHE, # 9 tab, 1 Refill(s), Pharmacy: [facility] #58, 152, cm, 01/08/23 21:48:00 EDT, Height/Length Dosing, 41,kg, 01/08/23 21:48:00 EDT, Weight Dosing Start Date: 03/06/23 Status: Ordered traMADol 50 mg oral tablet 50 mg = 1 tab, Oral, every 12 hr, PRN as needed for pain, # 56 tab, 0 Refill(s), Pharmacy: [facility] #58, 149, cm, 05/19/23 17:18:00 EDT, Height/Length Dosing, 43.09, kg, 05/19/23 17:18:00 EDT, Weight Dosing Start Date: 06/01/23 Stop Date: 06/29/23 Status: Ordered traZODone 100 mg oral tablet 50 mg = 0.5 tab, Oral, every night at bedtime, # 90 tab, 3 Refill(s), Pharmacy: [facility] #58, 152, cm, 11/04/22 17:29:00 EST, Height/Length [...] Completed Elective delivery 18 Completed 1Esophagogastroduodenoscopy with gtcz-jzq-wvga esophageal dilatation 2foreign body (suture) 3Takedown Enterocutaneous [...] Laboratory List Name Date CBC w/ Diff 06/22/23 Pathology Smear Consult 06/22/23 Automated Diff 06/22/23 Most recent to oldest [Reference Range]: 1 WBC [5.0-10.0 x10^3/mcL] 11.7 x10^3/mcL *HI* (06/22/23 10:51 AM) RBC [4.1-5.3 x10^6/mcL] 4.1 x10^6/mcL (06/22/23 10:51 AM) Neutro Auto [40.0-75.0 %] 51.9 % (06/22/23 10:51 AM) Lymph Auto [20.0-50.0 %] 34.2 % (06/22/23 10:51 AM) Wise Auto [2.0-15.0 %] 8.2 % (06/22/23 10:51 AM) Basophil Auto [0.0-1.0 %] 1.1 % *HI* (06/22/23 10:51 AM) MCV [80.0-96.0 fL] 89.1 fL (06/22/23 10:51 AM) MCHC [31.0-35.0 g/dL] 32.5 g/dL (06/22/23 10:51 AM) Hct [37.0-47.0 %] 36.9 % *LOW* (06/22/23 10:51 AM) MCH [26.0-32.0 pg] 29.0 pg (06/22/23 10:51 AM) Neutro Absolute 6.0 x10^3/mcL *NA* (06/22/23 10:51 AM) Hgb [12.0-16.0 g/dL] 12.0 g/dL (06/22/23 10:51 AM) Platelets [130-450 x10^3/mcL] 623 x10^3/ mcL *HI* (06/22/23 10:51 AM) RDW-CV [11.5-14.5 %] 14.6 % *HI* (06/22/23 10:51 AM) Imm Gran Auto [0.0-0.9 %] 0.5 % (06/22/23 10:51 AM) Slide Review Not Indicated (06/22/23 10:51 AM) Path Consult See Comment 1 (06/22/23 10:51 AM) Eos, Auto [1.0-6.0 %] 4.1 % (06/22/23 10:51 AM) 1Result Comment: 72 yoF with moderate thrombocytosis (PLT 623,000/ul). Platelets are small and granular, unremarkable morphology; no clumping or satellitism. WBC count and differential within normal limits; no left shift; no immature cells or blasts. RBC indices within normal limits; morphology unremarkable. Specific etiology of thrombocytosis cannot be determined by smear review alone. Consider reactive/secondary thrombocytosis; rule out infection (phillip. viral), chronic inflammation, drug/medication effect. Evolving myeloproliferative disorder cannot be excluded. Clinical correlation is neededto further evaluate other possible secondary versus primary causes. Dr. Bo Jeff, 06/22/23 [facility] Orders for Microbiology Reports Name Date Urine Culture 06/22/23 Microbiology Reports TEST:Urine Culture STATUS:Order in Progress BODY SITE: SOURCE:Urine, Clean Catch COLLECTED DATE/TIME:06/22/23 10:50 AM PRELIMINARY REPORT No growth at 24 hours. Social History Social History Type Response Tobacco Former tobacco user Tobacco Use:. 1, 2 Sex Female 1less than 1/2 PPD 21/2 to one pack a day [id number], restared smoking 2015 10 PPD Implantable Device List Procedure Provider Procedure Date Device Type Site Repair initial incisional or ventral hernia; [facility] 06/09/22 Non Biological Abdomen Device Identifier Serial Number Lot or Batch Number Manufacturing Date Expiration Date Distinct Identification Code MRI Safety Implantable Status Assigning Authority Unknown Unknown [id number] Unknown 07/20/22 Unknown Unknown Active Unknown Patient Care team information Care Team Personnel Name: Annette Conroy MD Position: Physician Member Role: Informed Provider Address: Address: [address] [place] [phone] [place] Care Team Related Persons Name: RAFAEL ANDRES Address: Home Name: HARI LICONA Address: Home
--- OUTSIDE RECORDS SUMMARY | 2023-09-12 13:48 | XMS_ITS | Continuity of Care Document ---
Author Name Unknown Organization [facility] Address [address] [place] [address] Care Team Providers Care Business Solutions Architect Name Role Phone Major Hirsch Primary Care Physician [facility] Date(s): 01/08/23 - 01/08/[address] [address] Encounter Diagnosis Knee sprain(Discharge Diagnosis) - 01/08/23 Discharge Disposition: Home or Self Care Attending Physician: Gabriela Nash MD Admitting Physician: Gabriela Nash MD Allergies, Adverse Reactions, Alerts No Known Medication Allergies Assessment and Plan Future Appointments Future Scheduled Tests Laboratory* T3, Free [facility] 11/26/22 * T3, Free [facility] 11/02/22 * T3, Free [facility] 08/03/22 * CBC w/ Diff 11/26/22 * Comprehensive Metabolic Panel 11/26/22 * TSH w/ Rflx to Free [facility] 11/26/22 * TSH w/ Rflx to Free T[facility] 11/02/22 * TSH w/ Rflx to Free [facility] 08/03/22 Functional Status 01/08/23 Family Member Travel History No recent t [...] rded tetanus/diphth/pertuss (Tdap) adult/adol 11/16/11 Recorded Novel [id number], all formulation 11/25/09 Recorded pneumococcal 23-polyvalent vaccine 08/23/02 Record ed 1Result Comment: Unit: Unknown 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[employer] 2Result Comment: Unit: Unknown 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[employer] P[employer] Medications acetaminophen 500 mg oral capsule 1,000 mg = 2 cap, Oral, every 6 hr Start Date: 04/08/22 Status: Ordered copper 0 Refill(s) Start Date: 12/24/22 Status: Ordered cyclobenzaprine 5 mg oral tablet 1 tab, Oral, TID, # 42 tab, 1 Refill(s), Pharmacy: [facility], 152, cm, 11/04/22 17:29:00EST, Height/Length Dosing, 44, kg, 11/04/22 17:29:00 EST, Weight Dosing Start Date: 12/26/22 Stop Date: 01/09/23 Status: Ordered Eliquis 2.5 mg oral tablet 1 tab, Oral, BID, # 180 tab, 2 Refill(s), Pharmacy: [facility], 152, cm, 10/14/22 14:28:00 EST, Height/Length Dosing, 44, kg, 10/14/22 14:28:00 EST, Weight Dosing Start Date: 10/24/22 Status: Ordered gabapentin 300 mg oral capsule 900 mg = 3 cap, Oral, BID, 3 cap bid, # 540 cap, 3 Refill(s), Pharmacy: [facility], 152, cm, 11/04/22 17:29:00 EST, Height/Length Dosing, 44, kg, 11/04/22 17:29:00 EST, Weight Dosing Start Date: 12/24/22 Status: Ordered levothyroxine 125 mcg (0.125 mg) oral tablet 125 mcg = 1 tab, Oral, Daily, # 90 tab, 2 Refill(s), Pharmacy: [facility], 152, cm, 11/04/22 17:29:00 EST, Height/Length Dosing, 44, kg, 11/04/22 17:29:00 EST, Weight Dosing Start Date: 12/24/22 Status: Ordered LORazepam 2 mg oral tablet 2 mg = 1 tab, Oral, BID, PRN as needed for anxiety, TAKE ONE TABLET BY MOUTH EVERY DAY AT BEDTIME NEEDED may take second tab mid night if needed, # 56 tab, 5 Refill(s), Pharmacy: [facility], 152, cm, 11/04/22 17:29:00 EST, Height/Length D... Start Date: 11/05/22 Status: Ordered omeprazole 40 mg oral delayed release capsule 40 mg = 1 cap, Oral, Daily, # 90 cap, 3 Refill(s), Pharmacy: [facility], 152, cm, 11/04/22 17:29:00 EST, Height/Length Dosing, 44, kg, 11/04/22 17:29:00 EST, Weight Dosing Start Date: 12/24/22 Status: Ordered ondansetron 4 mg oral tablet, disintegrating 4 mg = 1 tab, Oral, every 6 hr, PRN other (see comment), as needed, # 120 tab, 1 Refill(s), Pharmacy: [facility], 152, cm, 11/04/22 17:29:00 EST, Height/Length Dosing, 44, kg, 11/04/22 17:29:00 EST, Weight Dosing Start Date: 12/24/22 Status: Ordered oxyCODONE 5 mg oral capsule 5 mg = 1 cap, Oral, every 6 hr, PRN as needed for pain, X 5 days, # 12 cap, 0 Refill(s), 01/13/23 22:04:00 EDT, Pharmacy: [facility], 152, cm, 01/08/23 21:48:00 EDT, Height/Length Dosing, 41, kg, 01/08/23 21:48:00 EDT, Weight Dosing Start Date: 01/08/23 Stop Date: 01/13/23 Status: Ordered rOPINIRole 2 mg oral tablet 4 mg = 2 tab, Oral, Daily, # 60 tab, 3 Refill(s), Pharmacy: [facility], 152, cm, 11/04/2316:29:00 EST, Height/Length Dosing, 44, kg, 11/04/22 17:29:00 EST, Weight Dosing Start Date: 12/24/22 Status: Ordered Singulair 10 mg oral tablet 10 mg = 1 tab, Oral, Daily, # 90 tab, 3 Refill(s), Pharmacy: [facility], 152, cm, 11/04/22 17:29:00 EST, Height/Length Dosing, 44, kg, 11/04/22 17:29:00 EST, Weight Dosing Start Date: 12/24/22 Status: Ordered SUMAtriptan 100 mg oral tablet 1 tab, Oral, BID, PRN NEEDED FOR MIGRAINE HEADACHE, # 9 tab, 1 Refill(s), Pharmacy: [facility], 152, cm, 11/04/22 17:29:00 EST, Height/Length Dosing, 44, kg, 11/04/22 17:29:00 EST, Weight Dosing Start Date: 12/26/22 Status: Ordered traZODone 100 mg oral tablet 100 mg = 1 tab, Oral, every night at bedtime, # 90 tab, 3 Refill(s), Pharmacy: [facility], 152, cm, 11/04/22 17:29:00 EST, Height/Length Dosing, 44, kg, 11/04/22 17:29:00 EST, Weight Dosing Start Date: 12/24/22 Status: Ordered Ventolin HFA 90 mcg/inh inhalation aerosol 2 puffs, Inhale, every 4 hr, 0 Refill(s) Start Date: 04/07/22 Status: Ordered Vitamin C 0 Refill(s) Start Date: 12/24/22 Status: Ordered vitamin E 0 Refill(s) Start Date: 12/24/22 Status: Ordered Zinc 0 Refill(s) Start Date: 12/24/22 Status: Ordered Problem List Condition Confirmation Course [...] Procedure Date Related Diagnosis Body Site Status Laparoscopic repair of ventral hernia 06/08/22 Completed Exploratory laparotomy 1 01/28/22 Completed Exploratory laparotomy [...] Temperature Temporal Artery [36-38 Deg C ] 37.6 Deg C (01/08/23 9:41 PM) Peripheral Pulse Rate [60-100 bpm] 102 b pm *HI* (01/08/23 9:41 PM) Respiratory Rate [12-24 br/min] 20 br/mi n (01/08/23 9:41 PM) Blood Pressure [90-140/60-90 mmHg] 185/1 06mmHg *HI* (01/08/23 9:41 PM) Weight Dosing 41.00 kg (01/08/23 9:48 PM) Weight Estimated 41.00 kg (01/08/23 9:41 PM) Height/Length Dosing 152.000 cm (01/08/23 9:48 PM) Height/Length Estimated 152.000 cm (01/08/23 9:41 PM) Social History Social History Type Response Tobacco Current everyday tob acco user Tobacco Use:. 1 Sex Female 08/25 to one pack a day [id number], restared smoking 2015 10 PPD Implantable Device List Procedure Provider Procedure Date Device Type Site Repair initial incisional or ventral hernia; reducible Er[facility], Tomas Dong MD 06/09/22 Non Biological Abdomen Device Identifier Serial Number Lot or Batch Number Manufacturing Date Expiration Date Distinct Identification Code MRI Safety Implantable Status Assigning Authority Unknown Unknown [id number] Unknown 07/20/22 Unknown Unknown Active Unknown Hospital Discharge Instructions Patient Education 01/08/2023 21:45:18 Knee Sprain, Adult Knee Sprain, Adult A knee sprain is a stretch or tear in a knee ligament. Knee ligaments are tissues that connect bones in the knee to each other. What are the causes? This condition often results from: ??? A fall. ??? An injury to the knee. What are the signs or symptoms? Symptoms of this condition include: ??? Trouble straightening or bending the leg. ??? Swelling in the knee. ??? Bruising around the knee. ??? Tenderness or pain in the knee. ??? Muscle spasms around the knee. How is this diagnosed? This condition may be diagnosed based on: ??? A physical exam. ??? A history of what happened just before you started to have symptoms. ??? Tests, including: ??? An X-ray. This may be done to make sure no bones are broken. ??? An MRI. This may be done to check if the ligament is torn. ??? Stress testing of the knee. This may be done to check ligament damage. How is this treated? Treatment for this condition may involve: ??? Keeping the knee still (immobilized) with a cast, brace, or splint. ??? Applying ice to the knee. This helps with pain and swelling. ??? Raising (elevating) the knee above the level of your heart when you are resting. This helps with pain and swelling. ??? Taking medicine for pain. ??? Doing exercises to prevent or limit permanent weakness or stiffness in your knee. ??? Having surgery to reconnect the ligament to the bone or to reconstruct it. This may be needed if the ligament is completely torn. Follow these instructions at home: If you have a splint or brace: ??? Wear it as told by your health care provider. Remove it only as told by your health care provider. ??? Check the skin around it every day. Tell your health care provider about any concerns. ??? Loosen it if your toes tingle, become numb, or turn cold and blue. ??? Keep it clean and dry. If you have a cast: ??? Do not stick anything inside it to scratch your skin. Doing that increases your risk of infection. ??? Check the skin around it every day. Tell your health care provider about any concerns. ??? You may put lotion on dry skin around the edges of the cast. Do not put lotion on the skin underneath the cast. ??? Keep it clean and dry. Bathing If you have a splint, brace, or cast that is not waterproof: ??? Do not let it get wet. ??? Cover it with a watertight covering when you take a bath or a shower. Managing pain, stiffness, and swelling ??? If directed, put ice on the injured area. To do this: ??? If you have a removable splint or brace, remove it as told by your health care provider. ??? Put ice in a plastic bag. ??? Place a towel between your skin and the bag or between your cast and the bag. ??? Leave the ice on for 20 minutes, 2???3 times a day. ??? Move your toes often to reduce stiffness and swelling. ??? Elevate the injured area above the level of your heart while you are sitting or lying down. General instructions ??? Take nbhd-yak-fxccdje and prescription medicines only as told by your health care provider. ??? Do not use any products that contain nicotine or tobacco, such as cigarettes, e-cigarettes, andchewing tobacco. These can delay healing. If you need help quitting, ask your health care provider. ??? Do exercises as told by your health care provider. ??? Keep all follow-up visits as told by your health care provider. This is important. Contact a health care provider if: ??? You have pain that gets worse. ??? The cast, brace, or splint does not fit right. ??? The cast, brace, or splint gets damaged. Get help right away if: ??? You cannot use your injured knee to support any of your body weight (cannot bear weight). ??? You cannot move the injured joint. ??? You cannot walk more than a few steps without pain or without your knee buckling. ??? You have significant pain, swelling, or numbness in the leg below the cast, brace, or splint. ??? Your foot or toes are numb, cold, or blue after loosening your splint or brace. Summary ??? A knee sprain is a stretch or tear in a knee ligament that usually occurs as the result of a fall or injury. ??? Treatment may involve immobilizing the knee with a cast, splint, or brace and then doing exercises. ??? If the ligament is completely torn, it may require surgery to repair or replace the injured ligament. This information is not intended to replace advice given to you by your health care provider. Make sure you discuss any questions you have with your health care provider. Document Revised: 08/29/2020 Document Reviewed: 08/29/2020 [email or web address] Patient Education ?? 2021 [employer]. Follow Up Care 01/08/2023 21:41:00 With:Follow up with primary care provider Address: When:1 to 2 weeks Physician Emergency department Note * Gabriela Nash MD: PERFORM Event Display: ED Note Physician Authored Date: [id number] LIVAN KELLEE D :1950 Age:72 years Sex:Female Visit Date:01/08/2023 Primary Care Physician: Major Hirsch DO Basic Information Time Seen: Gabriela Nash MD / 01/08/2023 21:47 Chief Complaint Patient c/o sudden pain in right knee. ??Denies trauma, was ice fishing today, now cannot walk on it. ??Tylenol 650 at 1700, Motrin 400 mg at 1400, Aleve at 1930 History Of Present Illness: Patient spent part of the day ice fishing??she came in around 1:30 PM??right knee was hurting pretty bad at 2 PM.?? Patient is on Eliquis she really did not want to come to the emergency department patient took ibuprofen Aleve??prior to arrival. ??Patient's daughter drove her here.?? No tingling nonumbness.?? Patient also has??she notices a slight bulge medial aspect of her right knee??and tenderness to??right medial knee as well as??below patella??no hip pain or tenderness??patient does not remember any injury or trauma. Review of Systems: see hpi for ros Physical Exam Vitals & Measurements T:??37.6?C ??(Temporal Artery)?? HR:??102??(Peripheral)?? RR:??20?? BP:??185/106?? SpO2:??99%?? HT:??152.000??cm?? WT:??41.00??kg??(Estimated)?? Pain Score:??9?? O2 Therapy:??Room air?? General: Alert and oriented, well nourished,?No??acute distress Eye: PER,?Normal??conjunctiva, No scleral icterus HENT: Normocephalic?Normal?? hearing?? Respiratory:??Respiration??no distress??no increased work of breathing Heart:??Capillary refill less than 2 seconds??no??edema Chest: wall excursion wnl no abnormal movements no obvious deformities Musculoskeletal:?Normal?? range of motion and strength??except for right knee??due to tenderness??to movement??tenderness to distal patella insertion as well as??medial right knee,+effusion knee moderate Skin: Skin is warm, dry and pink,?No??rashes,?No??lesions Neurologic: Awake, alert and oriented X4 Psychiatric: Cooperative, appropriate mood and affect Medical Decision Making: For MDM please see under assessment and plan Procedure No Qualifying Data Assessment/Plan 1.??Knee sprain??S83.90XA X-ray shows some degenerative joint disease??however no acute??fracture or acute change??a prepack of Percocet is sent home with the patient as well as oxycodone 5 mg 1 tab every??6 hours as needed #12 tabs??patient is instructed where she is on Eliquis not to take Aleve or ibuprofen as she did this afternoon.?? Patient will rest??ice elevate the area and use??walker or crutches at home to help get around. Orders: oxyCODONE 5 mg oral capsule, 5 mg = 1 cap, Oral, every 6 hr, PRN as needed for pain, X 5 days, # 12cap, 0 Refill(s), 01/13/23 22:04:00 EDT, Pharmacy: [facility], 152, cm, 01/08/23 21:48:00EDT, Height/Length Dosing, 41, kg, 01/08/23 21:48:00 EDT, Weight Dosing THP oxyCODONE-acetaminophen 5-325mg Tab, 1 EA, Oral, Misc, Once, First Dose: 01/08/23 22:44:00 EDT,Stop Date: 01/08/23 22:44:00 EDT, Physician Stop, STAT XR Knee Complete 4+ Views Right, 01/08/23 22:01:00 EDT, Stat, Reason: pain, Transport Mode: Stretcher, Exam to be performed outside organization? Patient Education Knee Sprain, Adult Follow Up With When Contact Information Follow up with primary care provider Within 1 to 2 weeks Additional Instructions: Medication Reconciliation New Prescription oxyCODONE (oxyCODONE 5 mg oral capsule)1 Capsules Oral (given by mouth) every 6 hours as needed as needed for pain for 5 Days. Refills: 0. ?? Unchanged acetaminophen (acetaminophen 500 mg oral capsule)2 Capsules Oral (given by mouth) every 6 hours. ?? albuterol (Ventolin HFA 90 mcg/inh inhalation aerosol)2 Puffs Inhale (breathe in) every 4 hours. ?? apixaban (Eliquis 2.5 mg oral tablet)1 tab Oral (given by mouth) 2 times a day. Refills: 2. ?? ascorbic acid (Vitamin C) ?? copper ?? cyclobenzaprine (cyclobenzaprine 5 mg oral tablet)1 tab Oral (given by mouth) 3 times a day for 14 Days. Refills: 1. ?? gabapentin (gabapentin 300 mg oral capsule)3 [...] by mouth) every day. Refills: 3. ?? omeprazole (omeprazole 40 mg oral delayed [...] mouth) 2 times a day as needed NEEDED FOR MIGRAINE HEADACHE. Refills: 1. ?? traZODone (traZODone 100 mg oral tablet)1 tab Oral (given by mouth) every night at bedtime. Refills: 3. ?? vitamin E ?? zinc sulfate (Zinc) Problem List/Past Medical History Ongoing Acquired hypothyroidism [...] Insomnia Intestinal adhesions with obstruction Intestinal obstruction Left-sided piriformis syndrome Loss of appetite Low back pain Low blood pressure Migraine without aura Nicotine dependence Osteoporosis Pain in right hip joint Perforation of right tympanic membrane Piriformis syndrome Postoperative hypothyroidism Postprocedural septic shock Radial neck fracture Restless legs Right-sided piriformis syndrome Sacroiliac disorder Sciatica Sprain of left hip Sprain of left knee Thrombosis Traumatic or non-traumatic injury Varicose veins of lower extremity Vitamin D deficiency Historical No qualifying data Procedure/Surgical History ???Laparoscopic repair of ventral hernia (06/09/2022)???Exploratory laparotomy (01/29/2022)???Exploratory laparotomy (07/30/2021)???Exploratory laparotomy (04/20/2021)???Endoscopy (03/26/2021)???Endoscopy (12/11/2020)???Endoscopy (07/02/2020)???EGD - Esophagogastroduodenoscopy (05/22/2020)???Colonoscopy (05/25/2019)???Stimulation of spinal cord (02/11/2017)???Ligation/stripping of vein (09/24/2016)???Ligation/stripping of vein (05/14/2016)???EGD - Esophagogastroduodenoscopy (09/24/2015)???Hernia repair (05/30/2012)???septoplasty (09/01/2004)???Repair of nasal septum (09/01/2004)???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 Substance Use Never Tobacco Current everyday tobacco user Tobacco Use:.- Comments: 10/25 to one pack a day [id number], restared smoking 2015 10 PPD Family History EtOH - Alcohol: Father. Healthy adult: Daughter. Migraine: Daughter. Myocardial infarction: Mother. Family Member(s): ?? MOTHER, at age: 80 Years. Cause of : Electronically Signed on 01/08/23 10:47 PM Gabriela Nash MD Emergency department Discharge instructions * Gabriela Nash MD: PERFORM Event Display: ED Discharge Information Authored Date: [id number] KELLEE LICONA :1950 Age:72 years Sex:Female Visit Date:01/08/2023 Primary Care Physician: Major Hirsch DO Discharge Instructions We would like to thank you for allowing us to assist you with your healthcare needs. The following includes patient education materials and information regarding your injury/illness. Diagnosis from Today's Visit Knee sprain Discharge Vitals Temperature??(Temporal Artery) 99.7 ??F (37.6 ??C) Heart Rate??(Peripheral) 102 Respiratory Rate?? 20 Blood Pressure?? 185/106?? Height?? 59.84 in (152.000 cm) Weight??(Estimated) 90.40 lb (41.00 kg) Allergies No Known Medication Allergies What to Do Next Instructions from Your Care Team You may take up to 1000 mg??of Tylenol??(acetaminophen) every 6 hours as needed??for pain or discomfort for maximum 4000 mg in 24 hours or you may permanently hurt your liver.?? For pain unrelieved by Tylenol you may take??oxycodone 5 mg 1 tab every 4 hours as needed.?? Either follow-up with your primary care provider or orthopedics [phone]??within the next 1 to 2 weeks.?? Use your walker orcrutches to help with??your knee pain. You Need to Schedule the Following Appointments Follow Up with??Follow up with primary care provider When:??Within 1 to 2 weeks Upcoming Scheduled Appointments Tuesday 12:40 PM EDT ?? Tuesday 10:40 AM EDT ?? Where: [facility] Main OR Status: Confirmed Tuesday 9:00 AM EDT ?? With: Selina Brown PT Where: [address] [address] Status: Confirmed You were treated today on an emergency [...] Much When Why Instructions Next Dose New oxyCODONE (oxyCODONE 5 mg oral capsule) 1 Capsules Oral (given by mouth) Every 6 hours as needed for as needed for pain Duration: 5 Days Pickup at [facility] Unchanged acetaminophen (acetaminophen 500 mg oral capsule) 2 Capsules Oral (given by mouth) Every 6 hours Unchanged albuterol (Ventolin HFA 90 mcg/ inh inhalation aerosol) 2 Puffs Inhale (breathe in) Every 4 hours Unchanged apixaban (Eliquis 2.5 mg oral tablet) 1 tab Oral (given by mouth) 2 times a day Unchanged ascorbic acid (Vitamin C) Unchanged copper Unchanged cyclobenzaprine (cyclobenzaprine 5 mg oral tablet) [...] 2 times a day as needed for NEEDED FOR MIGRAINE HEADACHE Unchanged traZODone (traZODone 100 mg oral tablet) 1 tab Oral (given by mouth) Every night at bedtime Unchanged vitamin E Unchanged zinc sulfate (Zinc) Pharmacy Information [facility]: [address], [place] [phone] Education Materials Knee Sprain, Adult A knee sprain is a stretch or tear in a knee ligament. Knee ligaments are tissues that connect bones in the knee to each other. What are the causes? This condition often results from: ? A fall. ? An injury to the knee. What are the signs or symptoms? Symptoms of this condition include: ? Trouble straightening or bending the leg. ? Swelling in the knee. ? Bruising around the knee. ? Tenderness or pain in the knee. ? Muscle spasms around the knee. How is this diagnosed? This condition may be diagnosed based on: ? A physical exam. ? A history of what happened just before you started to have symptoms. ? Tests, including: ? An X-ray. This may be done to make sure no bones are broken. ? An MRI. This may be done to check if the ligament is torn. ? Stress testing of the knee. This may be done to check ligament damage. How is this treated? Treatment for this condition may involve: ? Keeping the knee still (immobilized) with a cast, brace, or splint. ? Applying ice to the knee. This helps with pain and swelling. ? Raising (elevating) the knee above the level of your heart when you are resting. This helps with pain and swelling. ? Taking medicine for pain. ? Doing exercises to prevent or limit permanent weakness or stiffness in your knee. ? Having surgery to reconnect the ligament to the bone or to reconstruct it. This may be needed if the ligament is completely torn. Follow these instructions at home: If you have a splint or brace: ? Wear it as told by your health care provider. Remove it only as told by your health care provider. ? Check the skin around it every day. Tell your health care provider about any concerns. ? Loosen it if your toes tingle, become numb, or turn cold and blue. ? Keep it clean and dry. If you have a cast: ? Do not stick anything inside it to scratch your skin. Doing that increases your risk of infection. ? Check the skin around it every day. Tell your health care provider about any concerns. ? You may put lotion on dry skin around the edges of the cast. Do not put lotion on the skin underneath the cast. ? Keep it clean and dry. Bathing If you have a splint, brace, or cast that is not waterproof: ? Do not let it get wet. ? Cover it with a watertight covering when you take a bath or a shower. Managing pain, stiffness, and swelling ? If directed, put ice on the injured area. To do this: ? If you have a removable splint or brace, remove it as told by your health care provider. ? Put ice in a plastic bag. ? Place a towel between your skin and the bag or between your cast and the bag. ? Leave the ice on for 20 minutes, 2???3 times a day. ? Move your toes often to reduce stiffness and swelling. ? Elevate the injured area above the level of your heart while you are sitting or lying down. General instructions ? Take [id number] and prescription medicines only as told by your health care provider. ? Do not use any products that contain nicotine or tobacco, such as cigarettes, e- cigarettes, and chewing tobacco. These can delay healing. If you need help quitting, ask your health care provider. ? Do exercises as told by your health care provider. ? Keep all follow-up visits as told by your health care provider. This is important. Contact a health care provider if: ? You have pain that gets worse. ? The cast, brace, or splint does not fit right. ? The cast, brace, or splint gets damaged. Get help right away if: ? You cannot use your injured knee to support any of your body weight (cannot bear weight). ? You cannot move the injured joint. ? You cannot walk more than a few steps without pain or without your knee buckling. ? You have significant pain, swelling, or numbness in the leg below the cast, brace, or splint. ? Your foot or toes are numb, cold, or blue after loosening your splint or brace. Summary ? A knee sprain is a stretch or tear in a knee ligament that usually occurs as the result of a fall or injury. ? Treatment may involve immobilizing the knee with a cast, splint, or brace and then doing exercises. ? If the ligament is completely torn, it may require surgery to repair or replace the injured ligament. This information is not intended to replace advice given to you by your health care provider. Make sure you discuss any questions you have with your health care provider. Document Revised: 08/29/2020 Document Reviewed: 08/29/2020 Elsevier Patient Education ?? 2021 [employer] Tests Performed Medications and Immunizations Administered Given oxyCODONE 5 mg oral tablet, 5 mg, Oral Patient/Recycling Sorter Signature Patient Name:LIVAN KELLEE Brown I have received this information and my questions have been answered. Patient/Recycling Sorter Name: Patient/Recycling Sorter Signature: Relationship to Patient: Witness Name/Signature: Date: Electronically Signed on: 01/08/2023 22:46 EDTSigned by:RIANNA Patient Care team information Care Team Personnel Name: Major Hirsch DO Position: Physician Member Role: Primary Care Physician Address: Address: [place] [facility] [id number] [place] [address] Name: Italia Resendiz RN Position: Nurse Member Role: ED Nurse Name: Gabriela Nash MD Position: Physician Member Role: Attending Physician Address: Address: [address] [place] [address]- Care Team Related Persons Name: MCKENNA RAFAEL Address: Home Name: HARI LICONA Address: Home
--- OUTSIDE RECORDS SUMMARY | 2023-09-12 13:49 | XMS_ITS | CCD ---
Author Name Unknown Address [address] [place] [address] [phone] Organization Unknown Address [address] [place] [address] [id number] Care Team Providers Care Boilermaker Welder Name Role Phone ZAK ERNST Attending Physician [phone] ZAK ERNST Rounding (Secondary) Physician [phone] Vital Signs Unknown or Not Available. Allergies Unknown or Not Available. Procedures Unknown or Not Available. History of Immunizations Unknown or Not Available. Problems Unknown or Not Available. Results Unknown or Not Available. Active Medications Unknown or Not Available. Medications Administered During Visit Unknown or Not Available. Encounters Encounter Diagnosis Diagnosis Code Start Date Canceled operative procedure [id number] Social History Smoking Status Code Start Date End Date Former smoker [id number] Patient Decision Aids Unknown or Not Available. Discharge Instructions You were admitted to [facility] on 07/13/2022 13:46 with a principal diagnosis of Procedure and treatment not carried out for other reasons You were discharged from [facility] on 07/13/2022 09:56 Should you have any questions prior to discharge, please contact a member of your healthcare team. If you have left the hospital and have any questions, please contact your primary care physician. Chief Complaint and Reason For Visit Unknown or Not Available. Function Status Unknown or Not Available. Plan of Care Unknown or Not Available. Referral/Transition of Care Unknown or Not Available.
--- OUTSIDE RECORDS SUMMARY | 2023-09-12 13:49 | XMS_ITS | Continuity of Care Document ---
Author Name Unknown Organization [facility] Address [address] [place] [address] Care Team Providers Care Pulp Bleacher Name Role Phone Annette Conroy Primary Care Physician Encounter [facility] Date(s): 06/02/23 - 06/02/23 [facility] [address] [place] [address] Discharge Disposition: Home Allergies, Adverse Reactions, Alerts [...] Recorded tetanus/diphth/pertuss (Tdap) adult/adol 11/16/11 Recorded Novel [id number], all formulation 11/25/09 Recorded pneumococcal 23-polyvalent vaccine 08/23/02 Record ed 1Result Comment: Unit: Unknown [employer]: [employer] 2Result Comment: Unit: Unknown [employer]: [employer] 3Result Comment: Unit: Unknown [employer]: [employer] Medications acetaminophen 500 mg oral capsule 1,000 mg = 2 cap, Oral, every 6 hr Start Date: 04/08/22 Status: Ordered amitriptyline 25 mg oral tablet 25 mg = 1 tab, TAKE ONE TABLET BY MOUTH EVERY NIGHT AT BEDTIME Start Date: 05/25/23 Status: Ordered cyclobenzaprine 5 mg oral tablet 1 tab, Oral, TID, # 42 tab, 3 Refill(s), [facility]: [facility], 152, cm, 01/08/23 21:48:00EDT, Height/Length Dosing, 41, kg, 01/08/23 21:48:00 EDT, Weight Dosing Start Date: 04/15/23 Stop Date: 04/29/23 Status: Ordered Eliquis 2.5 mg oral tablet TAKE ONE TABLET BY MOUTH TWICE A DAY Start Date: 05/25/23 Status: Ordered gabapentin 300 mg oral capsule 900 mg = 3 cap, Oral, BID, 3 cap bid, # 540 cap, 3 Refill(s), [facility]: [facility], 152, cm, 11/04/22 17:29:00 EST, Height/Length [...] Daily, # 90 tab, 2 Refill(s), [facility]: [facility], 152, cm, 11/04/22 17:29:00 EST, Height/Length Dosing, 44, kg, 11/04/22 17:29:00 EST, Weight Dosing Start Date: 12/24/22 Status: Ordered LORazepam 2 mg oral tablet 2 mg = 1 tab, Oral, BID, PRN as needed for anxiety, TAKE ONE TABLET BY MOUTH EVERY DAY AT BEDTIME NEEDED may take second tab mid night if needed, # 56 tab, 5 Refill(s), [facility]: [facility], 149, cm, 05/19/23 17:18:00 EDT, Height/Length Dosing, 43.09, kg, 05/19/23 17:18:00 EDT, Weight Dosing Start Date: 05/26/23 Status: Ordered nicotine 14 mg/24 hr transdermal film, extended release 1 patches, TD, Daily, # 14 patches, 0 Refill(s), [facility]: [facility], 149, cm, 05/19/23 17:18:00 EDT, Height/Length Dosing, 43.09, kg, 05/19/23 17:18:00 EDT, Weight Dosing Start Date: 06/02/23 Status: Ordered nicotine 7 mg/24 hr transdermal film, extended release 1 patches, TD, Daily, # 7 patches, 0 Refill(s), [facility]: [facility], 149, cm, 05/19/23 17:18:00 EDT, Height/Length Dosing, 43.09, kg, 05/19/23 17:18:00 EDT, Weight Dosing Start Date: 06/02/23 Status: Ordered omeprazole 40 mg oral delayed release capsule 40 mg = 1 cap, Oral, Daily, # 90 cap, 3 Refill(s), [facility]: [facility], 152, cm, 11/04/22 17:29:00 EST, Height/Length Dosing, 44, kg, 11/04/22 17:29:00 EST, Weight Dosing Start Date: 12/24/22 Status: Ordered ondansetron 4 mg oral tablet, disintegrating 4 mg = 1 tab, Oral, every 6 hr, PRN other (see comment), as needed, # 120 tab, 1 Refill(s), [facility]: [facility], 152, cm, 11/04/22 17:29:00 EST, Height/Length Dosing, 44, kg, 11/04/22 17:29:00 EST, Weight Dosing Start Date: 12/24/22 Status: Ordered predniSONE 10 mg oral tablet 0 Refill(s) Start Date: 05/25/23 Status: Ordered PreserVision AREDS Lutein oral capsule 1 caps, Oral, Daily, 0 Refill(s) Start Date: 02/02/23 Status: Ordered rOPINIRole 2 mg oral tablet 2 tab, Oral, Daily, # 60 tab, 3 Refill(s), [facility]: [facility], 152, cm, 01/08/23 21:48:00 EDT, Height/Length Dosing, 41, kg, 01/08/23 21:48:00 EDT, Weight Dosing Start Date: 04/13/23 Status: Ordered sertraline 25 mg oral tablet TAKE ONE TABLET BY MOUTH EVERY DAY Start Date: 05/25/23 Status: Ordered Singulair 10 mg oral tablet 10 mg = 1 tab, Oral, Daily, # 90 tab, 3 Refill(s), [facility]: [facility], 152, cm, 11/04/22 17:29:00 EST, Height/Length Dosing, 44, kg, 11/04/22 17:29:00 EST, Weight Dosing Start Date: 12/24/22 Status: Ordered SUMAtriptan 100 mg oral tablet See Instructions, TAKE ONE TABLET BY MOUTH TWICE A DAY NEEDED FOR MIGRAINE HEADACHE, # 9 tab, 1 Refill(s), [facility]: [facility], 152, cm, 01/08/23 21:48:00 EDT, Height/Length Dosing, 41,kg, 01/08/23 21:48:00 EDT, Weight Dosing Start Date: 03/06/23 Status: Ordered traMADol 50 mg oral tablet 50 mg = 1 tab, Oral, every 12 hr, PRN as needed for pain, # 56 tab, 0 Refill(s), [facility]: [facility], 149, cm, 05/19/23 17:18:00 EDT, Height/Length Dosing, 43.09, kg, 05/19/23 17:18:00 EDT, Weight Dosing Start Date: 06/01/23 Stop Date: 06/29/23 Status: Ordered traZODone 100 mg oral tablet 100 mg = 1 tab, Oral, every night at bedtime, # 90 tab, 3 Refill(s), [facility]: [facility], 152, cm, 11/04/22 17:29:00 EST, Height/Length [...] Completed Elective delivery 18 Completed 1Esophagogastroduodenoscopy with [id number] esophageal dilatation 2foreign body (suture) 3Takedown Enterocutaneous [...] or ventral hernia; reducible [facility]09[facility]22 Non Biological Abdomen Device Identifier Serial Number Lot or Batch Number Manufacturing Date Expiration Date Distinct Identification Code MRI Safety Implantable Status Assigning Authority Unknown Unknown [id number] Unknown 07/20/22 Unknown Unknown Active Unknown Patient Care team information Care Team Personnel Name: Major Hirsch DO Position: Physician Member Role: Informed Provider Address: Address: [place] [facility] [address] [address]- [place] Name: Annette Conroy MD Position: Physician Member Role: Primary Care Physician Address: Address: [address] [place] [phone] Care Team Related Persons Name: RAFAEL ANDRES Name: HARI LICONA
--- OUTSIDE RECORDS SUMMARY | 2023-09-12 13:49 | XMS_ITS | Continuity of Care Document ---
Author Name Unknown Organization [facility] Address [address] [place] [address] Care Team Providers Care Beverage Server Name Role Phone Major Hisrch Primary Care Physician [phone] Encounter [facility] Date(s): 04/27/23 - 04/27/[address] [address] Encounter Diagnosis Rib contusion(Discharge Diagnosis) - 04/27/23 Discharge Disposition: Home or Self Care Attending Physician: Nanci Gonzales MD Admitting Physician: Nanci Gonzales MD Allergies, Adverse Reactions, Alerts No Known Medication Allergies Assessment and Plan Future Appointments Future Scheduled Tests Laboratory* T3, Free [facility] 08/03/22 * TSH w/ Rflx to Free T4 08/03/22 Functional Status 04/27/23 Family Member Travel History No recent t [...] Celestine rded influenza virus vaccine, inactivated 07/26/06 Celestnie rded tetanus/diphth/pertuss (Tdap) adult/adol 11/16/11 Recorded Novel [id number], all formulation 11/25/09 Recorded pneumococcal 23-polyvalent vaccine 08/23/02 Record ed 1Result Comment: Unit: Unknown Rn Gastroenterology: [employer] 2Result Comment: Unit: Unknown Rn Gastroenterology: [employer] Medications acetaminophen 500 mg oral capsule 1,000 mg = 2 cap, Oral, every 6 hr Start Date: 04/08/22 Status: Ordered cyclobenzaprine 5 mg oral tablet 1 tab, Oral, TID, # 42 tab, 3 Refill(s), Pharmacy: [facility], 152, cm, 01/08/23 21:48:00EDT, Height/Length Dosing, 41, kg, 01/08/23 21:48:00 EDT, Weight Dosing Start Date: 04/15/23 Stop Date: 04/29/23 Status: Ordered Eliquis 2.5 mg oral tablet 1 tab, Oral, BID, # 180 tab, 2 Refill(s), Pharmacy: [facility], 152, cm, 10/14/22 14:28:00 EST, Height/Length Dosing, 44, kg, 10/14/22 14:28:00 EST, Weight Dosing Start Date: 10/24/22 Status: Ordered gabapentin 300 mg oral capsule 900 mg = 3 cap, Oral, BID, 3 cap bid, # 540 cap, 3 Refill(s), Pharmacy: [facility], 152, cm, 11/04/22 17:29:00 EST, Height/Length Dosing, 44, kg, 11/04/22 17:29:00 EST, Weight Dosing Start Date: 12/24/22 Status: Ordered levothyroxine 125 mcg (0.125 mg) oral tablet 125 mcg = 1 tab, Oral, Daily, # 90 tab, 2 Refill(s), Pharmacy: [facility], 152, cm, 11/04/22 17:29:00 EST, Height/Length Dosing, 44, kg, 11/04/22 17:29:00 EST, Weight Dosing Start Date: 12/24/22 Status: Ordered LORazepam 2 mg oral tablet 2 mg = 1 tab, Oral, BID, PRN as needed for anxiety, TAKE ONE TABLET BY MOUTH EVERY DAY AT BEDTIME NEEDED may take second tab mid night if needed, # 56 tab, 5 Refill(s), Pharmacy: [facility], 152, cm, 11/04/22 17:29:00 EST, Height/Length D... Start Date: 11/05/22 Status: Ordered omeprazole 40 mg oral delayed release capsule 40 mg = 1 cap, Oral, Daily, # 90 cap, 3 Refill(s), Pharmacy: [facility], 152, cm, 11/04/22 17:29:00 EST, Height/Length Dosing, 44, kg, 11/04/22 17:29:00 EST, Weight Dosing Start Date: 12/24/22 Status: Ordered ondansetron 4 mg oral tablet, disintegrating 4 mg = 1 tab, Oral, every 6 hr, PRN other (see comment), as needed, # 120 tab, 1 Refill(s), Pharmacy: [facility], 152, cm, 11/04/22 17:29:00 EST, Height/Length Dosing, 44, kg, 11/04/22 17:29:00 EST, Weight Dosing Start Date: 12/24/22 Status: Ordered PreserVision AREDS Lutein oral capsule 1 caps, Oral, Daily, 0 Refill(s) Start Date: 02/02/23 Status: Ordered rOPINIRole 2 mg oral tablet 2 tab, Oral, Daily, # 60 tab, 3 Refill(s), Pharmacy: [facility], 152, cm, 01/08/23 21:48:00 EDT, Height/Length Dosing, 41, kg, 01/08/23 21:48:00 EDT, Weight Dosing Start Date: 04/13/23 Status: Ordered Singulair 10 mg oral tablet 10 mg = 1 tab, Oral, Daily, # 90 tab, 3 Refill(s), Pharmacy: [facility], 152, cm, 11/04/22 17:29:00 EST, Height/Length Dosing, 44, kg, 11/04/22 17:29:00 EST, Weight Dosing Start Date: 12/24/22 Status: Ordered SUMAtriptan 100 mg oral tablet See Instructions, TAKE ONE TABLET BY MOUTH TWICE A DAY NEEDED FOR MIGRAINE HEADACHE, # 9 tab, 1 Refill(s), Pharmacy: [facility], 152, cm, 01/08/23 21:48:00 EDT, Height/Length Dosing, 41,kg, 01/08/23 21:48:00 EDT, Weight Dosing Start Date: 03/06/23 Status: Ordered traMADol 50 mg oral tablet 50 mg = 1 tab, Oral, every 12 hr, PRN as needed for pain, # 56 tab, 0 Refill(s), Pharmacy: [facility], 152, cm, 01/08/23 21:48:00 EDT, Height/Length Dosing, 41, kg, 01/08/23 21:48:00 EDT, Weight Dosing Start Date: 03/30/23 Stop Date: 04/27/23 Status: Ordered traZODone 100 mg oral tablet 100 mg = 1 tab, Oral, every night at bedtime, # 90 tab, 3 Refill(s), Pharmacy: [facility], 152, cm, 11/04/22 17:29:00 EST, Height/Length Dosing, 44, kg, 11/04/22 17:29:00 EST, Weight Dosing Start Date: 12/24/22 Status: Ordered Ventolin HFA 90 mcg/inh inhalation aerosol 2 puffs, Inhale, every 4 hr, 0 Refill(s) Start Date: 04/07/22 Status: Ordered Mental Status 04/27/23 Eye Opening Response [place] Spontaneous ly Best Verbal Response Genna Oriented Best Motor Response [place] Obeys comman ds Genna Coma Score 15 [...] Completed Elective delivery 18 Completed 1Esophagogastroduodenoscopy with eobr-pbk-nctq esophageal dilatation 2foreign body (suture) 3Takedown Enterocutaneous [...] Temperature Temporal Artery [36-38 Deg C ] 36.9 Deg C (04/27/23 6:11 PM) Peripheral Pulse Rate [60-100 bpm] 84 bp m (04/27/23 7:33 PM) 84 bpm (04/27/23 6:11 PM) Respiratory Rate [12-24 br/min] 22 br/mi n (04/27/23 6:11 PM) Blood Pressure [90-140/60-90 mmHg] 133/8 1mmHg (04/27/23 7:33 PM) 131/81mmHg (04/27/23 6:11 PM) Weight Dosing 41.00 kg (04/27/23 6:20 PM) Weight Estimated 41.00 kg (04/27/23 6:11 PM) Height/Length Dosing 152.000 cm (04/27/23 6:20 PM) Height/Length Estimated 152.000 cm (04/27/23 6:11 PM) Social History Social History Type Response Tobacco Current everyday tob acco user Tobacco Use:. Sex Female Implantable Device List Procedure Provider Procedure Date Device Type Site Repair initial incisional or ventral hernia; reducible Tomas Damon MD 06/09/22 Non Biological Abdomen Device Identifier Serial Number Lot or Batch Number Manufacturing Date Expiration Date Distinct Identification Code MRI Safety Implantable Status Assigning Authority Unknown Unknown [id number] Unknown 07/20/22 Unknown Unknown Active Unknown Hospital Discharge Instructions Patient Education 04/27/2023 19:03:54 Chest Contusion, Adult Chest Contusion, Adult A chest contusion is a deep bruise on the chest. Contusions are usually the result of a blunt injury to tissues under the skin. The injury can damage the small blood vessels under the skin, which causes bleeding under the skin. The skin over the contusion may turn blue, purple, or yellow. You mightnot have pain with a contusion from a minor injury. A more severe injury may lead to a painful and swollen contusion that may last for weeks. What are the causes? A contusion is usually caused by a blow, trauma, or direct force to your chest. These injuries are often the result of: ??? Motor vehicle crashes. ??? Falls. ??? Bicycle injuries. ??? Contact sport injuries. What increases the risk? You may be at a higher risk for a chest contusion if you play a sport in which contact and falls are common. Football and soccer are common examples of this kind of sport. What are the signs or symptoms? Symptoms of this condition include: ??? Swelling in the chest. ??? Pain and tenderness in your chest. ??? Pain with some movements of your upper torso. ??? Discoloration of your chest. The area may have redness and then turn blue, purple, or yellow. ??? Pain when taking deep breaths. How is this diagnosed? This condition may be diagnosed based on your medical history and a physical exam. You may also have other tests, including: ??? X-ray to check if there were any other injuries, such as broken bones (fractures). ??? CT scan, ultrasound, or MRI if internal injuries are suspected. ??? Pulse oximetry, if you have trouble breathing. This test shows the amount of oxygen in your blood. How is this treated? This condition may be treated with: ??? Rest. ??? Applying ice to the injured area. ??? Deep-breathing exercises to reduce the risk of pneumonia. ??? Oxygen therapy. This may be given if you have trouble breathing or have low oxygen levels. ??? Crva-sun-difmfvf medicines for pain control. Follow these instructions at home: Managing pain, stiffness, and swelling ??? If directed, put ice on the injured area. To do this: ??? Put ice in a plastic bag. ??? Place a towel between your skin and the bag. ??? Leave the ice on for 20 minutes, 2???3 times per day. ??? Remove the ice if your skin turns bright red. This is very important. If you cannot feel pain, heat, or cold, you have a greater risk of damage to the area. ??? Take vcvn-aic-sphksrw and prescription medicines only as told by your health care provider. General instructions ??? Do not lift anything that is heavier than 10 lb (4.5 kg), or the limit that you are told, untilyour health care provider says that it is safe. ??? Rest as told by your health care provider. Avoid sitting for a long time without moving. ??? Get up to take short walks every 1???2 hours. This is important to improve blood flow and breathing. ??? Ask for help if you feel weak or unsteady. ??? Do deep-breathing exercises if your health care provider tells you to do so. ??? Do not use any products that contain nicotine or tobacco. These products include cigarettes, chewing tobacco, and vaping devices, such as e-cigarettes. If you need help quitting, ask your health care provider. ??? Keep all follow-up visits. This is important. Contact a health care provider if: ??? Your swelling or pain is not relieved with medicines or treatment. ??? You have increased bruising or swelling. ??? You have pain that is getting worse. ??? Your symptoms have not improved after 1 week. Get help right away if: ??? You have a sudden increase in pain. ??? You have difficulty breathing. ??? You have dizziness, weakness, or fainting. ??? You have blood in your urine or stool. ??? You cough up blood or you vomit blood. These symptoms may represent a serious problem that is an emergency. Do not wait to see if the symptoms will go away. Get medical help right away. Call your local emergency services (911 in the [place] Do not drive yourself to the hospital. Summary ??? A chest contusion is a deep bruise to the chest that is usually caused by a blow, trauma, or direct force to the chest. ??? Symptoms of this condition include chest pain, tenderness, swelling, and discoloration. ??? Treatment for a chest contusion may include resting and applying ice to the injured area. ??? Contact a health care provider if you have problems breathing or if your pain does not improve with treatment. This information is not intended to replace advice given to you by your health care provider. Make sure you discuss any questions you have with your health care provider. Document Revised: 01/01/2022 Document Reviewed: 01/01/2022 Elsevier Patient Education ?? 2021 [employer]. Follow Up Care 04/27/2023 18:11:35 With:Major Hirsch DO Address: [facility] [address] [address]- When:1 to 2 weeks Physician Emergency department Note * Rudolph Cortez MD: PERFORM, MODIFY, MODIFY, MODIFY Event Display: ED Note Physician Authored Date: [id number] LIVAN KELLEE D :1950 Age:72 years Sex:Female Visit Date:04/27/2023 Primary Care Physician: Major Hirsch DO ED Supervision/Handoff Note: Patient signed out to me by Dr. Nanci Gonzales History Of Present Illness: Who fell sustaining trauma to her??rib cage and knee??side complaining of pain. ??Denies any shortness of breath. Review of Systems: As per Dr. Gonzales's note Reevaluation/Repeat Exam: Tenderness to palpation to the??left side of her rib cage and left knee but she is able to ambulate??and is not short of breath Medical Decision Making: MDM: Summary: Signed out to me after she fell sustaining trauma to the left??knee and the rib cage. ??She received a shot of IM morphine with improvement. ??X-rays done showed no fractures??will be sent home with analgesics. ? Data Review Analysis All the data on this patient was reviewed by me including laboratory??and imaging studies??as well as bedside studies performed by me ?? Independent review of Studies Imaging Rib cage and left knee x-rays are negative as interpreted by me and reviewed by the radiologist Lab: ? Risk Stratification: Patient with a chest contusion but no pneumothorax no rib fractures will could be discharged home with analgesics ? Differential Diagnosis: 1.?? Rib cage contusion 2.?? Pneumothorax 3.?? Lung contusion 4.?? Rib fractures 5. ? Consultants: ? Shared disposition: Understands instructions and agrees to go home she is feels much better after the morphine injection ?? Impression:? Vitals & Measurements T:??36.9?C ??(Temporal Artery)?? HR:??84??(Peripheral)?? RR:??22?? BP:??133/81?? SpO2:??96%?? HT:??152.000??cm?? WT:??41.00??kg??(Estimated)?? Procedure No Qualifying Data Diagnostic Results ? * Final Report * ?? XR Knee Complete 4+ Views Left PROCEDURE INFORMATION:?? Exam: XR Left Knee?? Exam date and time: 04/27/2023 7:01 PM?? Age: 72 years old?? Clinical indication: Pain S/P fall? TECHNIQUE:?? Imaging protocol: Radiologic exam of the left knee.?? Views: 4 or more views.? COMPARISON:?? CR XR KNEE COMPLETE MIN 4V LT 02/14/2023 2:02 PM? FINDINGS:?? Bones/joints: A moderate suprapatellar joint effusion is present.?? There are mild degenerative changes of the patellofemoral joint. The?? medial and lateral compartments are maintained. There is no evidence?? of acute fracture.?? Soft tissues: No soft tissue swelling is identified.? IMPRESSION:?? Patellofemoral degenerative change with joint effusion. ? Report signed by: Sammy Caballero On 04/27/2023 ??19:11:03 ? URL This document has an image ?? Result type:?XR Knee Complete 4+ Views Left Result date:?April 27, 2023 19:01 EDT Result status:?Auth (Verified) Result title:?XR Knee Complete 4+ Views Left Performed by:?DomainUser, Generated on April 27, 2023 19:01 EDT Verified by:?DomainUser, Generated on April 27, 2023 19:01 EDT Encounter info:?[id number], [facility], Emergency, 04/27/2023-?? Contributor system:?[email or web address] ? * Final Report * ?? XR Ribs w/ PA Chest Right PROCEDURE INFORMATION:?? Exam: XR Right Ribs with PA Chest?? Exam date and time: 04/27/2023 6:46 PM?? Age: 72 years old?? Clinical indication: Pain S/P fall? TECHNIQUE:?? Imaging protocol: Radiologic exam of the right ribs with PA chest.?? Views: 3 views? COMPARISON:?? CR XR CHEST 1 VW 07/30/2021 4:02 PM? FINDINGS:?? Lungs: Unremarkable. No consolidation.?? Pleural spaces: Unremarkable. No pleural effusion. No pneumothorax.?? Heart/Mediastinum: Unremarkable. No cardiomegaly.?? Bones/joints: The ribs are normal. Unremarkable.? IMPRESSION:?? No acute findings.? Report signed by: Sammy Caballero On 04/27/2023 ??19:05:39 ? URL This document has an image ?? Result type:?XR Ribs w/ PA Chest Right Result date:?April 27, 2023 18:46 EDT Result status:?Auth (Verified) Result title:?XR Ribs w/ PA Chest Right Performed by:?DomainUser, Generated on April 27, 2023 18:46 EDT Verified by:?DomainUser, Generated on April 27, 2023 18:46 EDT Encounter info:?[id number], [facility], Emergency, 04/27/2023-?? Contributor system:?[email or web address] ?? Assessment/Plan 1.??Rib contusion??S20.219A Orders: THP traMADol 50 mg Tab, 1 EA, Oral, Misc, Once, First Dose: 04/27/23 20:02:00 EDT, Stop Date: 04/27/23 20:02:00 EDT, Physician Stop, STAT Electronically Signed on 04/27/23 08:05 PM Rudolph Cortez MD * Nanci Gonzales MD: PERFORM Event Display: ED Note Physician Authored Date: [id number] KELLEE LICONA :1950 Age:72 years Sex:Female Visit Date:04/27/2023 Primary Care Physician: Major Hirsch DO Basic Information Time Seen: Nanci Gonzales MD / 04/27/2023 18:20 Chief Complaint Pain knocked over by dog fall down ~3 stairs onto right ribcage now c/o pain focal to right side ribs. Denies headstrike or other injuries, mild road rash to right forearm. tough to take a deep breath History Of Present Illness: This is a 72-year-old??lady with multiple medical problems including??anxiety disorder,??asthma,??anemia, hypothyroidism,??hip pain,??shoulder pain, chronic pain,??dental caries, depression, dizziness,??hypertension,??insomnia,??low back pain, migraine headaches,??piriformis syndrome, restless legs, ??sciatica,??varicose veins of the lower extremities, who presents to the emergency department??complaining of right-sided rib pain??and worsening left knee pain??after a fall??about an hour prior topresentation. ??The patient says she was pushed by her daughter's dog??and fell in the stairs. ??She did not hit her head, she did not have any LOC.?? She is complaining of right-sided lateral rib pain. ??She has no abdominal pain.?? She also says she is scheduled for a left??knee replacement??due to severe arthritis??and her pain has been worse since the fall. Physical Exam Vitals & Measurements T:??36.9?C ??(Temporal Artery)?? HR:??84??(Peripheral)?? RR:??22?? BP:??131/81?? SpO2:??98%?? HT:??152.000??cm?? WT:??41.00??kg??(Estimated)?? GEN: well developed and well nourished HEAD: NCAT EYES: pupils round reactive to light, conjunctiva clear, extraocular movements intact, no raccoons eyes ENT: no fluid in external acoustic canals, no hemotympanum, no schmidt's sign, nares patent, oropharynx clear NECK: no JVD, midline trachea, no cervical spine tenderness,?? HEART: regular rate and rhythm LUNGS: CTAB CHEST: There is a linear??abrasion over the??skin of the??anterolateral??lower??chest wall, there is??tenderness to palpation over the??right lower anterolateral??chest wall??with no bruising or??defo rmity??noted ABD: no Nicole-Quispe's or Laz's sign, soft, non tender, no rebound or guarding PELVIS: stable to rock BACK: no step offs or deformities, T-L spine non tender : deferred EXT: Left knee in soft??knee immobilizer??that the patient brought with her. ??She has limited range of motion secondary to pain. ??There is no obvious swelling.??5/5 muscle strength globally??in allextremities, sensation intact. NEURO: CNII-XII grossly intact, no sensory deficits Medical Decision Makin-year-old??lady with multiple medical problems including??anxiety disorder,??asthma,??anemia, hypothyroidism,??hip pain,??shoulder pain, chronic pain,??dental caries, depression, dizziness,??hypertension,??insomnia,??low back pain, migraine headaches,??piriformis syndrome, restless legs,??sciatica ,??varicose veins of the lower extremities, who presents to the emergency department??complaining of right-sided rib pain??and worsening left knee pain??after a fall??about an hour prior to presentation. ? No head trauma, no LOC, no neck pain Isolated injuries with right??anterolateral??rib pain??with reassuring abdominal exam Left knee pain??status post trauma on top of chronically??painful knee??due for??knee replacement ?? Plan: Analgesia, x-rays the patient was signed out to Dr Cortez at 1900 for f/u on radiology Procedure No Qualifying Data Assessment/Plan Ordered: XR Knee Complete 4+ Views Left, 04/27/23 18:25:00 EDT, Stat, Reason: pain s/p fall, Transport Mode:Stretcher, Exam to be performed outside organization? Medication Reconciliation Unchanged acetaminophen (acetaminophen 500 mg oral capsule)2 Capsules Oral (given by mouth) every 6 hours. ?? albuterol (Ventolin HFA 90 mcg/inh inhalation aerosol)2 Puffs Inhale (breathe in) every 4 hours. ?? apixaban (Eliquis 2.5 mg oral tablet)1 tab Oral (given by mouth) 2 times a day. Refills: 2. ?? cyclobenzaprine (cyclobenzaprine 5 mg oral tablet)1 [...] adhesions with obstruction Intestinal obstruction Left knee pain Left knee pain Left-sided [...] a day. Psychosocial Substance Use Never Tobacco Current everyday tobacco user Tobacco Use:.- Comments: less than 1/2 PPD 1/2 to one pack a day [id number], restared smoking 2015 10 PPD Family History EtOH - Alcohol: Father. Healthy adult: Daughter. Migraine: Daughter. Myocardial infarction: Mother. Family Member(s): ?? MOTHER, at age: 80 Years. Cause of : Electronically Signed on 04/27/23 07:08 PM Nanci Gonzales MD Emergency department Discharge instructions * Rudolph Cortez MD: PERFORM, MODIFY Event Display: ED Discharge Information Authored Date: [id number] KELLEE LICONA :1950 Age:72 years Sex:Female Visit Date:04/27/2023 Primary Care Physician: Major Hirsch DO Discharge Instructions We would like to thank you for allowing us to assist you with your healthcare needs. The following includes patient education materials and information regarding your injury/illness. Diagnosis from Today's Visit Rib contusion Discharge Vitals Temperature??(Temporal Artery) 98.4 ??F (36.9 ??C) Heart Rate??(Peripheral) 84 Respiratory Rate?? 22 Blood Pressure?? 133/81?? Height?? 59.84 in (152.000 cm) Weight??(Estimated) 90.40 lb (41.00 kg) Allergies No Known Medication Allergies What to Do Next You Need to Schedule the Following Appointments Follow Up with??Major Hirsch DO When:??Within 1 to 2 weeks Where: [facility] [address] [address]- Upcoming Scheduled Appointments Tuesday 9:45 AM EDT [...] (given by mouth) Every night at bedtime Education Materials Chest Contusion, Adult A chest contusion is a deep bruise on the chest. Contusions are usually the result of a blunt injury to tissues under the skin. The injury can damage the small blood vessels under the skin, which causes bleeding under the skin. The skin over the contusion may turn blue, purple, or yellow. You mightnot have pain with a contusion from a minor injury. A more severe injury may lead to a painful and swollen contusion that may last for weeks. What are the causes? A contusion is usually caused by a blow, trauma, or direct force to your chest. These injuries are often the result of: ? Motor vehicle crashes. ? Falls. ? Bicycle injuries. ? Contact sport injuries. What increases the risk? You may be at a higher risk for a chest contusion if you play a sport in which contact and falls are common. Football and soccer are common examples of this kind of sport. What are the signs or symptoms? Symptoms of this condition include: ? Swelling in the chest. ? Pain and tenderness in your chest. ? Pain with some movements of your upper torso. ? Discoloration of your chest. The area may have redness and then turn blue, purple, or yellow. ? Pain when taking deep breaths. How is this diagnosed? This condition may be diagnosed based on your medical history and a physical exam. You may also have other tests, including: ? X-ray to check if there were any other injuries, such as broken bones (fractures). ? CT scan, ultrasound, or MRI if internal injuries are suspected. ? Pulse oximetry, if you have trouble breathing. This test shows the amount of oxygen in your blood. How is this treated? This condition may be treated with: ? Rest. ? Applying ice to the injured area. ? Deep-breathing exercises to reduce the risk of pneumonia. ? Oxygen therapy. This may be given if you have trouble breathing or have low oxygen levels. ? [place]-lec-ihzqsxa medicines for pain control. Follow these instructions at home: Managing pain, stiffness, and swelling ? If directed, put ice on the injured area. To do this: ? Put ice in a plastic bag. ? Place a towel between your skin and the bag. ? Leave the ice on for 20 minutes, 2???3 times per day. ? Remove the ice if your skin turns bright red. This is very important. If you cannot feel pain, heat, or cold, you have a greater risk of damage to the area. ? Take yqoi-xyd-wafpscq and prescription medicines only as told by your health care provider. General instructions ? Do not lift anything that is heavier than 10 lb (4.5 kg), or the limit that you are told, until your health care provider says that it is safe. ? Rest as told by your health care provider. Avoid sitting for a long time without moving. ? Get up to take short walks every 1???2 hours. This is important to improve blood flow and breathing. ? Ask for help if you feel weak or unsteady. ? Do deep-breathing exercises if your health care provider tells you to do so. ? Do not use any products that contain nicotine or tobacco. These products include cigarettes, chewing tobacco, and vaping devices, such as e-cigarettes. If you need help quitting, ask your health careprovider. ? Keep all follow-up visits. This is important. Contact a health care provider if: ? Your swelling or pain is not relieved with medicines or treatment. ? You have increased bruising or swelling. ? You have pain that is getting worse. ? Your symptoms have not improved after 1 week. Get help right away if: ? You have a sudden increase in pain. ? You have difficulty breathing. ? You have dizziness, weakness, or fainting. ? You have blood in your urine or stool. ? You cough up blood or you vomit blood. These symptoms may represent a serious problem that is an emergency. Do not wait to see if the symptoms will go away. Get medical help right away. Call your local emergency services (911 in the [place] Do not drive yourself to the hospital. Summary ? A chest contusion is a deep bruise to the chest that is usually caused by a blow, trauma, or directforce to the chest. ? Symptoms of this condition include chest pain, tenderness, swelling, and discoloration. ? Treatment for a chest contusion may include resting and applying ice to the injured area. ? Contact a health care provider if you have problems breathing or if your pain does not improve withtreatment. This information is not intended to replace advice given to you by your health care provider. Make sure you discuss any questions you have with your health care provider. Document Revised: 01/01/2022 Document Reviewed: 01/01/2022 Elsevier Patient Education ?? 2021 [employer] Tests Performed Medications and Immunizations Administered Given acetaminophen, 650 mg, Oral morphine 5 mg/mL preservative-free injectable solution, 2 mg, IM Patient/Fire Extinguisher Sprinkler Inspector Signature Patient Name:LIVAN KELLEE Brown I have received this information and my questions have been answered. Patient/Fire Extinguisher Sprinkler Inspector Name: Patient/Fire Extinguisher Sprinkler Inspector Signature: Relationship to Patient: Witness Name/Signature: Date: Electronically Signed on: 04/27/2023 20:04 EDTSigned by:JOSY Emergency department Note * Georgie Del Valle: PERFORM Event Display: ED Notes Authored Date: [id number] Patient Care team information Care Team Personnel Name: Major Hirsch DO Position: Physician Member Role: Informed Provider Address: Address: [place] [facility] [address] [place] [id number] [place] Name: Nanci Gonzales MD Position: Physician Member Role: Attending Physician Address: Address: [address] [place] [address] Name: Rufus Barker RN Position: Nurse Member Role: ED Nurse Name: Rudolph Cortez MD Position: Physician Member Role: ED Physician Address: Address: [address] [place] [address]- Care Team Related Persons Name: RAFAEL ANDRES Name: HARI LICONA
--- OUTSIDE RECORDS SUMMARY | 2023-09-12 13:49 | XMS_ITS | Continuity of Care Document ---
Author Name Unknown Organization [facility] Address [address] [place] [address] Care Team Providers Care Medical Apparatus Model Maker Name Role Phone Major Hirsch Primary Care Physician [facility] Date(s): 12/24/22 - 12/24/[address] [id number] Encounter Diagnosis Hypothyroidism, adult(Discharge Diagnosis) - 12/24/22 Hypothyroid(Discharge Diagnosis) - 12/24/22 Discharge Disposition: Home or Self Care Attending [...] rded tetanus/diphth/pertuss (Tdap) adult/adol 11/16/11 Recorded Novel [id number], all formulation 11/25/09 Recorded pneumococcal 23-polyvalent vaccine 08/23/02 Record ed 1Result Comment: Unit: Unknown Reproductive Surgeon: Sanofi Pasteur 2Result Comment: Unit: Unknown Reproductive Surgeon: Sanofi Pasteur Medications acetaminophen 500 mg oral capsule 1,000 mg = 2 cap, Oral, every 6 hr Start Date: 04/08/22 Status: Ordered copper 0 Refill(s) Start Date: 12/24/22 Status: Ordered cyclobenzaprine 5 mg oral tablet 1 tab, Oral, TID, # 42 tab, 1 Refill(s), Pharmacy: [facility], 152, cm, 11/04/22 17:29:00EST, Height/Length Dosing, 44, kg, 11/04/22 17:29:00 EST, Weight Dosing Start Date: 11/25/22 Stop Date: 12/09/22 Status: Ordered Eliquis 2.5 mg oral tablet 1 tab, Oral, BID, # 180 tab, 2 Refill(s), Pharmacy: [facility], 152, cm, 10/14/22 14:28:00 EST, Height/Length Dosing, 44, kg, 10/14/22 14:28:00 EST, Weight Dosing Start Date: 10/24/22 Status: Ordered gabapentin 300 mg oral capsule 900 mg = 3 cap, Oral, BID, 3 cap bid, # 540 cap, 3 Refill(s), Pharmacy: [facility], 152, cm, 11/04/22 17:29:00 EST, Height/Length Dosing, 44, kg, 11/04/22 17:29:00 EST, Weight Dosing Start Date: 12/24/22 Status: Ordered levothyroxine 125 mcg (0.125 mg) oral tablet 125 mcg = 1 tab, Oral, Daily, # 90 tab, 2 Refill(s), Pharmacy: [facility], 152, cm, 11/04/22 17:29:00 EST, Height/Length Dosing, 44, kg, 11/04/22 17:29:00 EST, Weight Dosing Start Date: 12/24/22 Status: Ordered LORazepam 2 mg oral tablet 2 mg = 1 tab, Oral, BID, PRN as needed for anxiety, TAKE ONE TABLET BY MOUTH EVERY DAY AT BEDTIME NEEDED may take second tab mid night if needed, # 56 tab, 5 Refill(s), Pharmacy: [facility], 152, cm, 11/04/22 17:29:00 EST, Height/Length D... Start Date: 11/05/22 Status: Ordered omeprazole 40 mg oral delayed release capsule 40 mg = 1 cap, Oral, Daily, # 90 cap, 3 Refill(s), Pharmacy: [facility], 152, cm, 11/04/22 17:29:00 EST, Height/Length Dosing, 44, kg, 11/04/22 17:29:00 EST, Weight Dosing Start Date: 12/24/22 Status: Ordered ondansetron 4 mg oral tablet, disintegrating 4 mg = 1 tab, Oral, every 6 hr, PRN other (see comment), as needed, # 120 tab, 1 Refill(s), Pharmacy: [facility], 152, cm, 11/04/22 17:29:00 EST, Height/Length Dosing, 44, kg, 11/04/22 17:29:00 EST, Weight Dosing Start Date: 12/24/22 Status: Ordered rOPINIRole 2 mg oral tablet 4 mg = 2 tab, Oral, Daily, # 60 tab, 3 Refill(s), Pharmacy: [facility], 152, cm, 11/04/2316:29:00 EST, Height/Length Dosing, 44, kg, 11/04/22 17:29:00 EST, Weight Dosing Start Date: 12/24/22 Status: Ordered Singulair 10 mg oral tablet 10 mg = 1 tab, Oral, Daily, # 90 tab, 3 Refill(s), Pharmacy: [facility], 152, cm, 11/04/22 17:29:00 EST, Height/Length Dosing, 44, kg, 11/04/22 17:29:00 EST, Weight Dosing Start Date: 12/24/22 Status: Ordered SUMAtriptan 100 mg oral tablet 100 mg = 1 tab, Oral, BID, PRN as needed for migraine headache, TAKE ONE TABLET BY MOUTH TWICE A DAY NEEDED FOR 30 DAYS, # 9 tab, 1 Refill(s), Pharmacy: [facility], 152, cm, 11/04/22 17:29:00 EST, Height/Length Dosing, 44, kg, 11/04/22 17... Start Date: 11/05/22 Status: Ordered traZODone 100 mg oral tablet 100 mg = 1 tab, Oral, every night at bedtime, # 90 tab, 3 Refill(s), Pharmacy: [facility], 152, cm, 11/04/22 17:29:00 EST, Height/Length [...] 16times 2 Results Laboratory List Name Date T3, Free [facility] 12/24/22 TSH w/ Rflx to Free T4 12/24/22 Most recent to oldest [Reference Range]: 1 TSH [0.358-3.740 mcIntlUnit/mL] 0.471 mc IntlUnit/mL (12/24/22 10:34 AM) T3, Free [facility] [2.8-5.3 pg/mL] 3.2 pg/mL 1 *NA* (12/24/22 10:34 AM) 1Result Comment: Test performed [place] [address] Social History Social History Type Response Tobacco Current everyday tob acco user Tobacco Use:. 1 Sex Female 08/25 to one pack a day [id number], restared smoking 2015 10 PPD Implantable Device List Procedure Provider Procedure Date Device Type Site Repair initial incisional or ventral hernia; [facility] 06[facility]09[facility]22 Non Biological Abdomen Device Identifier Serial Number Lot or Batch Number Manufacturing Date Expiration Date Distinct Identification Code MRI Safety Implantable Status Assigning Authority Unknown Unknown [id number] Unknown 07/20/22 Unknown Unknown Active Unknown Patient Care team information Care Team Personnel Name: Major Hirsch DO Position: Physician Member Role: Primary Care Physician Address: Address: [place] [facility] [address] Care Team Related Persons Name: RAFAEL ANDRES Name: HARI LICONA Address: Home
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
== END 2023-09-12 13:45 | disposition home or self-care (01) ==
LOC: DIORS 13:44
PROVIDERS: PCP Family Medicine; Referring Provider Family Medicine; Visit Provider Student in an Organized Health Care Education/Training Program
DX: Z47.1 Aftercare following joint replacement surgery; M70.62 Trochanteric bursitis, left hip; Z96.652 Presence of left artificial knee joint
CPT/HCPCS: 20610; 73502; 73560; 77073; J1040

== ENCOUNTER → 2024-04-10 09:11 | Outpatient (BNVA) | payer OTHER, SELFPAY | PROVIDERS: PCP Family Medicine; Referring Provider Family Medicine; Visit Provider Surgery | DX: R13.10 Dysphagia, unspecified (principal) | CPT/HCPCS: 99214 ==

== ENCOUNTER 2024-05-16 06:52 | Day surgery (SDC) | payer OTHER, SELFPAY ==
--- NOTE | 2024-05-15 12:38 | W.COLOREPORT ---
Colonoscopy Report Procedure Description: After the induction of monitored anesthetic care, and with the patient in left lateral decubitus position, I began by performing an external anorectal exam.? Perineum and skin were normal, as was the anal verge.? There was [] evidence of external hemorrhoids.? Next, I performed a digital rectal exam.? I did [] appreciate any abnormal findings.? Next, I advanced a colonoscope into the rectal vault.? I performed retroflexion.? I did [] see signs of pathologic internal hemorrhoids.? Using insufflation, I then advanced the colonoscope beyond the rectal folds and into the sigmoid colon before advancing towards the cecum.? The quality of the prep was [].? The scope was noted to be in the cecum by identification of the ileocecal valve and appendiceal orifice.? I then began withdrawing the colonoscope using repeated irrigation as necessary for full evaluation of the colonic mucosa. ?Once the scope was withdrawn to the level of the rectum, great care was taken to examine portions of the rectal folds.? Finally, the scope was withdrawn and the patient was brought to the same-day surgery recovery unit as the anesthetic wore off. ?The findings and instructions were shared with the patient prior to discharge.
--- NOTE | 2024-05-15 15:52 | W.PM.DSUDISC ---
Date of service: 05/16/24 Time of Service: 09:47 Discharge Plan Disposition Patient Disposition: Home Condition: Good Discharge Details Reason For Visit: EGD Attending Provider: Carlyle Terry Primary Care Provider: LEXA STEVENS Home Meds and New Rx's Prescriptions: Continued aspirin 81 mg capsule 81 mg PO DAILY oxycodone 5 mg capsule 5 mg PO BID PRN cyclobenzaprine 5 mg tablet 5 mg PO TID PRN gabapentin 300 mg capsule 300 mg PO BID levothyroxine 125 mcg capsule 125 mcg PO DAILY Rx Instructions: Pt. states she takes it HS lorazepam 2 mg tablet 2 mg PO BID PRN vit C,E,Zn,Vi-epfgx2-ofu-zeax 250-2.5-0.5 mg capsule 1 cap PO DAILY ropinirole 2 mg tablet 4 mg PO HS sumatriptan succinate 100 mg tablet 100 mg PO ONCE trazodone 100 mg tablet 100 mg PO QHS PRN albuterol sulfate [Ventolin HFA] 90 mcg/actuation HFA aerosol inhaler 2 puff inhalation Q4H PRN ondansetron 4 mg tablet,disintegrating 4 mg PO Q6H ibuprofen 600 mg tablet See Rx Instructions .ROUTE .COMPLEX Qty: 90 0RF Dose Instruction: TAKE ONE TABLET BY MOUTH EVERY 8 HOURS NEEDED FOR PAIN Rx Instructions: TAKE ONE TABLET BY MOUTH EVERY 8 HOURS NEEDED FOR PAIN montelukast [Singulair] 10 mg tablet 10 mg PO DAILY PRN acetaminophen 500 mg tablet 1,000 mg PO Q8H PRN Qty: 90 0RF Rx Instructions: Take two tablets up to every 8 hours as needed for pain Discharge Instructions Additional Instructions: Alix, we were able to complete your upper and lower endoscopy today without much difficulty. With regards to the upper endoscopy, or EGD, your esophagus appears normal to me. During your previous endoscopies at [facility], it was dilated to 54 [place], or just about 1.8 cm. By my evaluation today, I do not see any areas that seem consistent with an esophagus less than 2 cm. Therefore, I did not do any dilation today. I did do several biopsies along the esophagus to see if there is anything there that may explain the symptoms that you are feeling. There is also a little bit of a lump at the top part of your stomach, a few centimeters away from where the esophagus connects. I did some biopsies of this as well. I suspect this may just be some external compression from the other side of the stomach, rather than a true stomach problem, but we will wait to see what all the biopsy results show before making any other changes. I would also like to send you for a swallow test to see how food moves along your esophagus once you initiate swallowing. This is done through the radiology department. I will place the order today, and you can get the test at your convenience. Your colonoscopy was fine. The prep was not perfect, but it was certainly adequate enough to see what we need to see. I did not see any signs of tumors, polyps, or anything particularly scary. You do have a little bit of diverticulosis. Diverticula are little weak spots in the wall of the colon that typically accumulate as we get older. Hopefully years will never bother you. I have taken the liberty of scheduling a follow-up appointment with me in the office on June 12 at 11 AM. I am hopeful that you can get the swallowing test done before that. And I will certainly have the biopsy results. Obviously, if anything worrisome turns up in the biopsies, I will certainly call you beforehand 1. If tolerated, consume a soft, low fiber diet for 1-2 days. [address] Do not drive, drink alcohol, operate machinery, make critical decisions, or do activities that require coordination or balance for 24 hours. 3. You may experience a sore throat for 24 to 48 hours. You may use throat lozenges or gargle with warm salt water to relieve the discomfort. 4. Because air was put into your stomach during the procedure, you may experience some belching. 5. Go directly to the emergency room if you notice any of the following: Develop chills (warm to touch), or if you have a thermometer and your temperature is above 101 Difficulty breathing or difficultly swallowing Persistent vomiting Severe abdominal pain, other than gas cramps Severe chest pain Black, tarry stools Any bleeding ? exceeding one tablespoon 6. Call your physician if the site where your intravenous was started becomes red, swollen, painful, and warm to touch. 7. Your physician has reviewed your pre-procedure medications. Please continue to take those medications as previously ordered. You will be given specific information/education regarding any changes to your medications before leaving. Stand Alone Forms: Anesthesia Discharge Inst., Sahil Ochoa ([facility]) Referrals: Carlyle Terry MD [ [facility] STAFF PHYSICIAN] - (June 12 at 11 AM) Activity:: Activity as Tolerated Diet:: As Tolerated Discharge Orders Discharge Orders: Discharge Order (Routine); Ordered 05/15/24 Ordered By: Carlyle Terry DS: Diagnosis Discharge Diagnosis (1) Dysphagia: Asessment and Plan: Follow-up on biopsy results
--- NOTE | 2024-05-15 15:55 | W.PREOPHP ---
Assessment and Plan Assessment and plan (1) GERD (gastroesophageal reflux disease): Status: Chronic Assessment and plan: We reviewed the plan for an EGD, possible dilation today, as well as a screening colonoscopy. I think Tri is a very good understanding of this. She has another opportunity to ask any other questions. We can proceed with the endoscopies as planned. History of Present Illness History of Present Illness Chief Complaint: dysphagia Narrative: Alix is 73 years old, she is here with chief complaint of dysphagia. She describes difficulty and discomfort with swallowing that occurs with every meal. It is often times associated with a sense of choking. She does not notice any difference between solids, liquids, or any influence of the temperature on the food with her swallowing. Symptoms tend to last for a few minutes then resolved. She tells me this she for started experiencing this approximately 10 or 12 years ago after radiation to her thyroid. She says she is undergone multiple EGDs in the past, frequently with dilation of esophageal stricture. As best she understands, stricture as a result of the radiation, no other discrete diagnosis is known. She tells me she was taking a PPI for some time, but it was stopped. Other past medical history significant for exploratory laparotomy with a bowel resection, for what sounds like a small bowel obstruction. This was complicated by DVT and pulmonary embolism requiring therapeutic anticoagulation. She has completed that treatment, and no longer has any symptoms of DVT. She tells me she has had screening colonoscopies in the past as well. Especially can recall, her last colonoscopy was negative. She is not sure of the timing of it. She denies any history of colon or rectal cancers. She denies melena or hematochezia. She denies any family history of colon cancer Since her last office visit, she continues to have ongoing dysphagia, but there have been no other significant changes to the interval history or physical exam. PFSH All Active Problems Trochanteric bursitis, left hip (Acute) Most recent Depo-Medrol injection: 09/12/2023 History of total left knee replacement (Acute 08/02/23) GERD (gastroesophageal reflux disease) (Chronic) Spinal cord stimulator status (Acute) Nicotine dependence (Acute) Hypothyroidism (Chronic) Essential thrombocythemia (Acute) Asthma (Chronic) Medical History Varicose veins of both lower extremities Sprain of left knee Sprain of left hip Sinusitis Disorder of sacroiliac joint Postoperative hypothyroidism s/p radiation Piriformis syndrome Perforation of tympanic membrane in adult Knee pain, left Osteoporosis Degenerative disc disease Orthostatic hypotension pt. states this is cleared up Smoker Migraine Low blood pressure Loss of appetite Piriformis syndrome of left side Intestinal adhes w/ obst Insomnia Incisional hernia Acute hip pain, bilateral Headache History of gastrointestinal disorder Radial neck fracture Elevated blood-pressure reading without diagnosis of hypertension Dizziness Difficulty speaking History of depression of life partner Closed fracture of left humerus Acute bursitis of right shoulder Arthropathy of both sacroiliac joints Anxiety Anisocytosis Anemia Hypothyroidism (acquired) Vitamin D deficiency Varicose veins of anus or rectum Thrombosis Sciatica Restless legs Postprocedural septic shock Migraine without aura Low back pain Dysphagia Depression Dental caries Chronic pain Gale[place] involving less than 10% of body surface Anxiety disorder Surgical History History of vein stripping DOS: 05/14/16; 09/24/16 S/P insertion of spinal cord stimulator 02/11/17 Pt reports it was removed in 2019 Hx of colonoscopy History of delivery History of appendectomy History of nasal septoplasty dos 09/01/04 Hx of endoscopy (~02/09/23) 07/02/20 12/11/20 03/26/21 H/O exploratory laparotomy pt estimates total of ~10 procedures dos 04/20/21, 07/30/21, 01/29/22 H/O ventral hernia repair dos 06/09/22 History of esophagogastroduodenoscopy (EGD) and closure of duodenal fistula (02/09/23) History of splenectomy Lacerated liver Social History (Updated 07/11/23 @ 11:21 by Luna Fernández) Smoking/Tobacco Use Status: Former Tobacco Use Smoking risk assessment performed?: Yes Alcohol Intake: current Alcohol Intake frequency: holidays/special occasions only Drug use: Never Substance use type: does not use Housing: house Do you feel safe at home: Yes Do you feel safe in your relationship?: Yes Meds Allergies and Home Medications Allergies Allergy/AdvReac Type Severity Reaction Status Date / Time No Known Allergies Allergy Verified 05/16/24 07:12 Home Medications ?Medication ?Instructions ?Recorded ?Confirmed ?Type albuterol sulfate 90 mcg/actuation 2 puff inhalation Q4H PRN 03/16/23 05/15/24 History aerosol inhaler (Ventolin HFA) cyclobenzaprine 5 mg tablet 5 mg PO TID PRN 03/16/23 05/15/24 History gabapentin 300 mg capsule 300 mg PO BID 03/16/23 05/16/24 History levothyroxine 125 mcg capsule 125 mcg PO DAILY 03/16/23 05/16/24 History lorazepam 2 mg tablet 2 mg PO BID PRN 03/16/23 05/15/24 History ropinirole 2 mg tablet 4 mg PO HS 03/16/23 05/16/24 History sumatriptan succinate 100 mg tablet 100 mg PO ONCE 03/16/23 05/15/24 History trazodone 100 mg tablet 100 mg PO QHS PRN 03/16/23 05/15/24 History vit 1 cap PO DAILY 03/16/23 05/15/24 History C,E,zinc,St-smqov-8-lutein-zeaxanthin 250 mg-2.5 mg-0.5 mg capsule ondansetron 4 mg disintegrating 4 mg PO Q6H 07/19/23 05/15/24 History tablet acetaminophen 500 mg tablet 1,000 mg (2 x 500 mg) PO Q8H PRN 08/02/23 05/15/24 Rx pain #90 tabs ibuprofen 600 mg tablet See Rx Instructions .Route 10/09/23 05/15/24 Rx .COMPLEX #90 tabs aspirin 81 mg capsule 81 mg PO DAILY 04/10/24 05/15/24 History montelukast 10 mg tablet 10 mg PO DAILY PRN 04/10/24 05/15/24 History (Singulair) oxycodone 5 mg capsule 5 mg PO BID PRN 04/10/24 05/16/24 History Exam Const General: cooperative and not in acute distress Neck Neck: normal visual inspection, no lymphadenopathy and supple Resp Effort & Inspection: normal respiratory effort Auscultation: clear to auscultation bilaterally Cardio Jugular venous pressure: no JVD Rate: regular rate Rhythm: regular rhythm Heart Sounds: S1 normal and S2 normal GI Inspection: normal to inspection Palpation: soft, no guarding, no hernias and nontender Percussion: normal to percussion Auscultation: normal bowel sounds Neuro General: patient alert, patient awake and patient oriented x3 Psych Appearance: grossly normal
--- NOTE | 2024-05-15 15:56 | ENDO_ITS ---
Date of service: 05/16/24 Time of Service: 09:54 Endoscopy Report DATE OF PROCEDURE: 05/16/24 PRE-OP DIAGNOSIS: dysphagia and screening colonoscopy POST-OP DIAGNOSIS: other (Gastric mass; diverticulosis) PROCEDURE: EGD with biopsies and colonoscopy SURGEON: Carlyle Terry ANESTHESIA TYPE: General:No Airway ESTIMATED BLOOD LOSS: 10 COMPLICATIONS: None DISPOSITION: same day INDICATIONS: Alix is 73 years old and she has dysphagia with chronic esophageal stricture. Incidentally, she needs a screening colonscopy PREP: Miralax/Dulcolax PROCEDURE START TIME: 08:51 PROCEDURE END TIME: 09:27 COLONOSCOPY RETRACTION TIME: 9 FINDINGS: Mass in the gastric cardia; diverticulosis PROCEDURE DESCRIPTION: After the initiation of anesthesia, and with the assistance of a bite block, I advanced a standard gastroscope through the mouth past the hypopharynx and into the esophagus.? Under the direct vision of the scope, I advanced down the esophagus towards the stomach.? Hypopharynx appeared grossly normal. I was able to pass the camera quite easily through the cricopharyngeus region. The upper, mid, and lower esophagus all appeared widely patent. There was some retained secretions along the length of the esophagus. Narrowband imaging was used to assist with the analysis of the esophagus. No abnormalities were appreciated. The GE junction and Z-line were encountered at 37 cm from the incisors. The Z- line was regular. I advanced into the stomach and perform retroflexion. I did not appreciate a hiatal hernia. There was evidence of some elevation of the gastric mucosa in the gastric cardiac region. It was just a few centimeters away from the diaphragmatic hiatus. Again narrowband imaging was used here. Mucosa generally appeared normal. Cold forceps biopsies were performed here. Mucosa itself felt normal, and the mass almost gave the impression of some extrinsic pressure on the stomach. There was minimal bleeding from the biopsy sites. The camera was turned antegrade, and advanced down around the incisura angularis, through the pylorus, and into the duodenum. All of this appeared normal to me. I then brought the camera back up into the stomach proper and examined it once again. Similar to previous, no discrete abnormalities other than the lesion in the gastric cardia were appreciated. I brought the camera back up to the GE junction once again. Several passes were taken along the length of the esophagus. Again, it all appeared widely patent, and I did not see any evidence of any strictures that warranted dilation at this point. Therefore, the camera was removed, and we rolled Tri into the left lateral decubitus position for the colonoscopy. Great care was taken to pad and support her appropriately. Next, I performed a digital rectal exam.? I did not appreciate any abnormal findings.? Next, I advanced a colonoscope into the rectal vault.? I performed retroflexion.? This appeared normal.? Using insufflation, I then advanced the colonoscope beyond the rectal folds and into the sigmoid colon before advancing towards the cecum.? The prep was suboptimal, but with repeated irrigation, we are able to visualize the mucosa adequately..? The scope was noted to be in the cecum by identification of the ileocecal valve and appendiceal orifice.? I then began withdrawing the colonoscope using repeated irrigation as necessary for full evaluation of the colonic mucosa. ?Once the scope was withdrawn to the level of the rectum, great care was taken to examine portions of the rectal folds.? There was some diverticulosis along the length of the colon. But I did not see any signs of any tumors, polyps, or any other worrisome pathology. Finally, the scope was withdrawn and the patient was brought to the same-day surgery recovery unit as the anesthetic wore off. ?The findings and instructions were shared with the patient prior to discharge. [place] bowel prep score from right to left was 1, 2, 2
[2024-05-16 07:14] VITALS: BP 136/98; PULSE 80; RESP 20; TEMP 36.5; O2SAT 97
[2024-05-16] MEDS: Normal Saline Flush 10 ML SYR IV (07:46)
[2024-05-16] MEDS: Lactated Ringers 1,000 ML 80 ML IV (07:47)
--- NOTE | 2024-05-16 07:48 | W.ANESPRE ---
General Info Date of Service Date Performed: 05/16/24 Height: 4 ft 11 in Weight: 46.8 kg Body Mass Index (BMI): 20.8 Surgical Procedure: Operation Date: 05/16/24 09:05 Proposed Procedure Side Surgeon p Colonoscopy/Gastroscopy Carlyle Terry MD Meds Allergies and Home Medications Allergies Allergy/AdvReac Type Severity Reaction Status Date / Time No Known Allergies Allergy Verified 05/16/24 07:12 Home Medication ?Medication ?Instructions ?Recorded albuterol sulfate 90 mcg/actuation 2 puff inhalation Q4H PRN 03/16/23 aerosol inhaler (Ventolin HFA) cyclobenzaprine 5 mg tablet 5 mg PO TID PRN 03/16/23 gabapentin 300 mg capsule 300 mg PO BID 03/16/23 levothyroxine 125 mcg capsule 125 mcg PO DAILY 03/16/23 lorazepam 2 mg tablet 2 mg PO BID PRN 03/16/23 ropinirole 2 mg tablet 4 mg PO HS 03/16/23 sumatriptan succinate 100 mg tablet 100 mg PO ONCE 03/16/23 trazodone 100 mg tablet 100 mg PO QHS PRN 03/16/23 vit 1 cap PO DAILY 03/16/23 C,E,zinc,Qz-lphvy-7-lutein-zeaxanthin 250 mg-2.5 mg-0.5 mg capsule ondansetron 4 mg disintegrating 4 mg PO Q6H 07/19/23 tablet acetaminophen 500 mg tablet 1,000 mg (2 x 500 mg) PO Q8H PRN 08/02/23 pain #90 tabs ibuprofen 600 mg tablet See Rx Instructions .Route 10/09/23 .COMPLEX #90 tabs aspirin 81 mg capsule 81 mg PO DAILY 04/10/24 montelukast 10 mg tablet 10 mg PO DAILY PRN 04/10/24 (Singulair) oxycodone 5 mg capsule 5 mg PO BID PRN 04/10/24 Current Visit Medications: Current Medications Generic Name Dose Route Start Last Admin Trade Name Freq PRN Reason Stop Dose Admin Hyoscyamine Sulfate 0.125 mg 05/15/24 15:56 Hyoscyamine 0.125 Mg Sl/Oral/Chew SL 06/14/24 15:55 DIRECTED PRN Ringer's Solution 1,000 mls @ 80 mls/hr 05/16/24 06:00 05/16/24 07:47 IV 05/16/24 23:59 80 mls/hr INFUSION BHAVYA Administration IV Miscellaneous Supplies 1 each 05/16/24 06:00 Iv Access IV 05/16/24 23:59 DIRECTED BHAVYA Ondansetron HCl 4 mg 05/15/24 15:56 Ondansetron 4 Mg/2 Ml Vial IVP 06/14/24 15:55 Q4H PRN PRN Nausea / Vomiting Sodium Chloride 0 ml 05/16/24 06:00 05/16/24 07:46 Normal Saline Flush 10 Ml Syr IV 05/16/24 23:59 10 ml PRN PRN Administration Sodium Chloride 0 ml 05/16/24 06:00 Normal Saline 10 Ml Vial IJ 05/16/24 23:59 DIRECTED PRN Sterile Water 0 ml 05/16/24 06:00 Water,Injection,Sterile 10 Ml Vial IJ 05/16/24 23:59 DIRECTED PRN PFSH Active Problems Active Problems: Problem Status Onset Code Trochanteric bursitis, left hip Acute M70.62 History of total left knee replacement Acute 08/02/23 Z96.652 GERD (gastroesophageal reflux disease) Chronic K21.9 Spinal cord stimulator status Acute Z96.89 Nicotine dependence Acute F17.200 Hypothyroidism Chronic E03.9 Essential thrombocythemia Acute D47.3 Asthma Chronic J45.909 Medical History Medical History Varicose veins of both lower extremities Sprain of left knee Sprain of left hip Sinusitis Disorder of sacroiliac joint Postoperative hypothyroidism s/p radiation Piriformis syndrome Perforation of tympanic membrane in adult Knee pain, left Osteoporosis Degenerative disc disease Orthostatic hypotension pt. states this is cleared up Smoker Migraine Low blood pressure Loss of appetite Piriformis syndrome of left side Intestinal adhes w/ obst Insomnia Incisional hernia Acute hip pain, bilateral Headache History of gastrointestinal disorder Radial neck fracture Elevated blood-pressure reading without diagnosis of hypertension Dizziness Difficulty speaking History of depression of life partner Closed fracture of left humerus Acute bursitis of right shoulder Arthropathy of both sacroiliac joints Anxiety Anisocytosis Anemia Hypothyroidism (acquired) Vitamin D deficiency Varicose veins of anus or rectum Thrombosis Sciatica Restless legs Postprocedural septic shock Migraine without aura Low back pain Dysphagia Depression Dental caries Chronic pain [place]ale[place] involving less than 10% of body surface Anxiety disorder Surgical History Surgical History History of vein stripping DOS: 05/14/16; 09/24/16 S/P insertion of spinal cord stimulator 02/11/17 Pt reports it was removed in 2019 Hx of colonoscopy History of delivery History of appendectomy History of nasal septoplasty dos 09/01/04 Hx of endoscopy (~02/09/23) 07/02/20 12/11/20 03/26/21 H/O exploratory laparotomy pt estimates total of ~10 procedures dos 04/20/21, 07/30/21, 01/29/22 H/O ventral hernia repair dos 06/09/22 History of esophagogastroduodenoscopy (EGD) and closure of duodenal fistula (02/09/23) History of splenectomy Lacerated liver Tobacco Smoking/Tobacco Use Status: Former Tobacco Use Alcohol Alcohol Intake: current Alcohol intake frequency: holidays/special occasions only Substance Use Substance use: Never Substance use type: does not use Vital Signs and Lab Results Vital Signs Most Recent Vital Signs in EMR: Most Recent Vital Signs Temp Pulse Resp BP Pulse Ox 36.5 C 80 20 136/98 H 97 05/16/24 07:14 05/16/24 07:14 05/16/24 07:14 05/16/24 07:14 05/16/24 07:14 Lab Results Blood Type / Crossmatch: No Data to Display Complete Blood Count: No Data to Display Complete Metabolic Panel: No Data to Display Liver Function Panel: No Data to Display Coagulation Panel: No Data to Display Cardiac Panel: No Data to Display Arterial Blood Gas: No Data to Display Venous Blood Gas: No Data to Display Pancreas Panel: No Data to Display Thyroid Panel: No Data to Display Infectious Disease: No Data to Display Blood Cultures: No Data to Display Toxicology Panel: No Data to Display Imaging and Studies Imaging and Studies Study information below may be from another EMR and interpreted by another provider. Please see original notes in EMR for more complete details. EKG Summary: 06/15: sinus Anesthesia Assessment and Plan Anesthesia History Personal History: No History of Anesthesia Complications Family History: No Family History of Anesthesia Complications Exercise Tolerance Exercise Tolerance: Metabolic Equivalents>4 Pertinent Negatives Pertinent Negatives: No Symptoms of GERD, No Major Cardiovascular Symptoms or Complaints and No History of CVA/TIA Cardiac & Pulmonary Exam Cardiac Exam: Normal S1/S2 Heart Sounds Pulmonary Exam: Clear Bilateral Breath Sounds Implantable Cardiac Device Does patient have a Pacemaker or an ICD?: No Airway Exam Known Difficult Airway: No Mallampati Class: 2 Mouth Opening: Normal (> 3cm) Thyromental Distance: Greater than 3 cm Neck Range of Motion: Full ROM Neck Circumference: Normal Teeth Condition: Generalized Poor Dentition, Loose or Chipped and Removable Dentures/Plates Upper ASA Classification ASA Score: ASA 2 Emergency Case?: No NPO Status NPO Status: NPO Clears >2 hours, Solids >8 hours Anesthesia Plan Resuscitation Status: Full Code Anesthesia Technique: General Anesthesia Airway Planned: Natural Airway Monitors Used: Standard Monitors
[2024-05-16 07:51] VITALS: BMI 20.8
--- NOTE | 2024-05-16 08:56 | STOM_PTH ---
PATIENT: Alix Morales LOC: [facility] U#:[id number] AGE/SX: 73/F ROOM: RE05/16/[address]: Carlyle Terry MD : 1950 BED: DIS: 05/16/2024 SPEC #: [id number] RECD: 05/16/24 13:07 STATUS: KARY RE #: [id number] JASEN: 05/16/24 08:[address]: Carlyle Terry DEPT: Surgical Specimen RECD BY: Bridget Odom ENTERED: 05/16/24 13:09 SP TYPE: STOMACH OTHR DR: LEXA STEVENS Tissues: 1 - STOMACH BIOPSY 2 - ESOPHAGUS BIOPSY Procedures: GROSS AND MICRO LEVEL 4 SPECIAL STAIN 1 Comments: [id number]
[2024-05-16 09:35] VITALS: BP 127/80; PULSE 75; RESP 16; TEMP 36.1; O2SAT 100
--- NOTE | 2024-05-16 09:50 | W.ANESPOSTOP ---
Postoperative Evaluation Date, Time and Location Date Performed: 05/16/24 Time Performed: 09:50 Patient Location: Day Surgery Unit Vital Signs Most Recent Imported Vital Signs: Most Recent Vital Signs Temp Pulse Resp BP Pulse Ox 36.1 C L 75 16 127/80 100 05/16/24 09:35 05/16/24 09:35 05/16/24 09:35 05/16/24 09:35 05/16/24 09:35 Pain Score Most Recent Pain Score: Most Recent Pain Score Pain Level 0 05/16/24 09:35 Assessment Mental Status: Awake (Alert & Oriented to Patient Baseline) Airway and Respiratory Function: Patent airway with normal (patient baseline) respiratory exam Cardiovascular Function: Hemodynamically Stable Hydration Status: Adequately Hydrated Nausea & Vomiting: No Nausea or Vomiting Pain: Pt. Denies Any Pain Peripheral Nerve Block: Patient did not receive a nerve block Postoperative Comments:: IV site looks good. If in fact it was an infiltration, there was a very small amount of propofol if any infused.
[2024-05-16 10:11] VITALS: BP 135/98; PULSE 75; RESP 16; TEMP 36.3; O2SAT 98
== END 2024-05-16 10:25 | disposition home or self-care (01) ==
LOC: SUR 06:54
PROVIDERS: PCP Family Medicine; Visit Provider Surgery
PROC: (CPT 43239; principal; 2024-05-16 09:00)
DX: R13.10 Dysphagia, unspecified; F17.200 Nicotine dependence, unspecified, uncomplicated; Z12.11 Encounter for screening for malignant neoplasm of colon; K22.2 Esophageal obstruction; K31.9 Disease of stomach and duodenum, unspecified; K57.30 Diverticulosis of large intestine without perforation or abscess without bleeding; B37.81 Candidal esophagitis
CPT/HCPCS: 43239; G0121; 88305; 88312; J2001; J2704

== ENCOUNTER 2024-08-06 11:44 | Outpatient (CLI) | payer OTHER, SELFPAY ==
--- NOTE | 2024-08-06 11:13 | DI.RAD_ITS ---
Exam(s) XR KNEE LT 2V AP,LAT EXAM: XR KNEE LT 2V AP,LAT CLINICAL HISTORY: f/u surgery. TECHNIQUE: 2D digital imaging was performed. Two images were obtained. AP and lateral views were ob tained. COMPARISON: CR XR STANDING ALIGNMENT from 09/12/2023 CR XR KNEE LT 1V from 09/12/2023 FINDINGS: BONES: There are stable post operative changes of a left total knee replacement present. No fracture or dislocation. JOINTS: The orthopedic hardware is in good position. No evidence of hardware loosening. SOFT TISSUE: Normal. IMPRESSION: Stable left total knee replacement. DATA REPOSITORY: RADIATION DOSE DELIVERED:
--- NOTE | 2024-08-06 11:18 | DI.RAD_ITS ---
Exam(s) XR HIP LT COMPLETE AP PELVIS EXAM: XR HIP LT COMPLETE AP PELVIS CLINICAL HISTORY: left hip pain. TECHNIQUE: 2D digital imaging was performed. Five images were obtained. AP, lateral and oblique vie ws were obtained. COMPARISON: CR XR STANDING ALIGNMENT from 09/12/2023 CR XR HIP LT COMPLETE AP PELVIS from 09/12/2023 FINDINGS: BONES: There has been interval placement of a left hip prosthesis. No fracture or dislocation. JOINTS: The orthopedic hardware is in good position. No evidence of hardware loosening. SOFT TISSUE: Vascular calcifications are seen. IMPRESSION: Stable left hip prosthesis. DATA REPOSITORY: RADIATION DOSE DELIVERED:
== END 2024-08-06 11:45 | disposition home or self-care (01) ==
LOC: DIORS 11:44
PROVIDERS: PCP Family Medicine; Visit Provider Student in an Organized Health Care Education/Training Program
DX: M25.552 Pain in left hip (principal); Z96.652 Presence of left artificial knee joint; Z96.642 Presence of left artificial hip joint
CPT/HCPCS: 73502; 73560

== ENCOUNTER 2024-08-10 00:36 | Outpatient (CLI) | payer OTHER, SELFPAY ==
--- NOTE | 2024-08-10 16:08 | DI.CT_ITS ---
Exam(s) CT LOWER EXTREMITY LT WO EXAM: CT LOWER EXTREMITY LT WO CLINICAL HISTORY: L HIP PAIN,H/O HEMIARTHROPLASTY LT HIP,Z96.642. TECHNIQUE: Imaging Protocol: Axial computed tomography images with coronal and sagittal reformatted images were created and reviewed. CONTRAST MATERIAL: Intravenous: None COMPARISON: X-rays of 08/06/2024 reviewed. FINDINGS: There is satisfactory position alignment of the components of the left hip prosthesis. No obvious fr acture or loosening evident. IMPRESSION: No obvious fracture or loosening evident on the CT images. RADIATION DOSE DELIVERED: 208.48mGy.cm Total DLP DATA REPOSITORY: All CT scans at this facility are submitted to the National Radiology Data Registry (NRDR) Dose Index Registry (DIR) with the [employer] (ACR). RADIATION OPTIMIZATION: All CT scans at this facility use at least one of these dose optimization te chniques: automated exposure control; mA and/or kV adjustment per patient size (includes targeted exa ms where dose is matched to clinical indication); or iterative reconstruction.
== END 2024-08-10 00:56 ==
PROVIDERS: PCP Family Medicine; Visit Provider Student in an Organized Health Care Education/Training Program
DX: Z96.642 Presence of left artificial hip joint (principal); Z47.1 Aftercare following joint replacement surgery
CPT/HCPCS: 73700

== ENCOUNTER → 2024-08-31 08:16 | Outpatient (BNVA) | payer OTHER, SELFPAY | PROVIDERS: PCP Family Medicine; Referring Provider Family Medicine; Visit Provider Physician Assistant | DX: M25.552 Pain in left hip (principal); Z96.642 Presence of left artificial hip joint | CPT/HCPCS: 20611 ==

== ENCOUNTER 2024-10-11 12:03 | Outpatient (REF) | payer OTHER, SELFPAY ==
[2024-10-11 12:32] LABS: HCT 33.9 % (36.0-46.0); HGB 10.9 g/dL (11.2-15.7); MCH 29.7 pg (27.0-33.0); MCHC 32.2 % (32.0-36.0); MCV 92 fL (80-95); MPV 9.6 fL (8.0-11.0); Platelet Count 418 10^3/uL (130-400); RBC 3.67 10^6/uL (3.93-5.22); RDW 14.8 % (11.7-14.6); RDW-SD 50.1 fL; WBC 8.16 10^3/uL (4.4-10.8)
[2024-10-11 12:44] LABS: BUN 13 mg/dL (7-18); CREATININE 0.9 mg/dL (0.55-1.02); Calcium 9.2 mg/dL (8.5-10.1); Chloride 105 mmol/L (98-107); Estimated GFR 67.92 (mL/min/1.73m2); Glucose 96 mg/dL (74-106); Potassium 4.2 mmol/L (3.5-5.1); Sodium 142 mmol/L (136-145)
== END 2024-10-11 12:04 | disposition home or self-care (01) ==
LOC: LBN 12:03
PROVIDERS: PCP Family Medicine; Referring Provider Family Medicine; Visit Provider Student in an Organized Health Care Education/Training Program
DX: Z96.642 Presence of left artificial hip joint (principal); M70.62 Trochanteric bursitis, left hip; Z96.652 Presence of left artificial knee joint; Z01.818 Encounter for other preprocedural examination
CPT/HCPCS: 80048; 85027

== ENCOUNTER 2024-10-23 11:15 | Inpatient (IN) | payer OTHER, SELFPAY ==
[2024-10-23] VITALS (53 sets, daily range): BP systolic 100–202; BP diastolic 59–157; PULSE 49–85; RESP 7–19; TEMP 36–36.6; O2SAT 93–100; BMI 21.7
--- NOTE | 2024-10-23 11:04 | W.ANESPRE ---
General Info Date of Service Date Performed: 10/23/24 Height: 4 ft 11 in Weight: 48.7 kg Body Mass Index (BMI): 21.7 Surgical Procedure: Operation Date: 10/23/24 12:50 Proposed Procedure Side Surgeon p Hip Total Hip Anterior Left Kenrick Valencia MD Meds Allergies and Home Medications Allergies Allergy/AdvReac Type Severity Reaction Status Date / Time No Known Allergies Allergy Verified 10/23/24 10:51 Home Medication ?Medication ?Instructions ?Recorded albuterol sulfate 90 mcg/actuation 2 puff inhalation Q4H PRN 03/16/23 aerosol inhaler (Ventolin HFA) cyclobenzaprine 5 mg tablet 5 mg PO TID PRN 03/16/23 levothyroxine 125 mcg capsule 125 mcg PO HS 03/16/23 ropinirole 2 mg tablet 4 mg PO HS 03/16/23 vit 1 cap PO HS 03/16/23 C,E,zinc,Pi-jigez-2-lutein-zeaxanthin 250 mg-2.5 mg-0.5 mg capsule ondansetron 4 mg disintegrating 4 mg PO Q6H 07/19/23 tablet acetaminophen 500 mg tablet 1,000 mg (2 x 500 mg) PO Q8H PRN 08/02/23 pain #90 tabs oxycodone 5 mg capsule 5 mg PO BID PRN 04/10/24 atorvastatin 80 mg tablet 80 mg PO DAILY 08/06/24 butalbital 50 mg-acetaminophen 325 1 cap PO Q4H PRN 08/06/24 mg-caffeine 40 mg-codeine 30 mg cap cholecalciferol (vitamin D3) 1,250 1,250 mcg PO QWEEK 08/06/24 mcg (50,000 unit) capsule gabapentin 300 mg capsule 600 mg PO BID 08/06/24 magnesium oxide 400 mg PO DAILY 08/06/24 pantoprazole 40 mg tablet,delayed 40 mg PO BID 08/06/24 release trazodone 100 mg tablet 50 mg PO QHS 08/06/24 lorazepam 2 mg tablet 2 mg PO HS MAY REPEAT X1 10/11/24 propranolol 20 mg tablet 20 mg PO BID 10/23/24 Current Visit Medications: Current Medications Generic Name Dose Route Start Last Admin Trade Name Freq PRN Reason Stop Dose Admin Acetaminophen 1,000 mg 10/23/24 06:00 Acetaminophen 500 Mg Tab PO 10/23/24 23:59 PREOP BHAVYA Celecoxib 400 mg 10/23/24 06:00 Celecoxib 200 Mg Cap PO 10/23/24 23:59 PREOP BHAVYA Ringer's Solution 1,000 mls @ 80 mls/hr 10/23/24 06:00 IV 10/23/24 23:59 INFUSION BHAVYA Cefazolin Sodium/Dextrose 2 gm in 50 mls @ 100 mls/hr 10/23/24 06:00 Ancef Duplex IVPB 10/23/24 23:59 PREOP BHAVYA Tranexamic Acid/Sodium Chloride 1,000 mg in 100 mls @ 600 mls/hr 10/23/24 06:00 IVPB 10/23/24 23:59 PREOP BHAVYA IV Miscellaneous Supplies 1 each 10/23/24 06:00 Iv Access IV 10/23/24 23:59 DIRECTED BHAVYA Sodium Chloride 0 ml 10/23/24 06:00 Normal Saline Flush 10 Ml Syr IV 10/23/24 23:59 PRN PRN Sodium Chloride 0 ml 10/23/24 06:00 Normal Saline 10 Ml Vial IJ 10/23/24 23:59 DIRECTED PRN Sterile Water 0 ml 10/23/24 06:00 Water,Injection,Sterile 10 Ml Vial IJ 10/23/24 23:59 DIRECTED PRN PFSH Active Problems Active Problems: Problem Status Onset Code History of hemiarthroplasty of left hip Acute ~09/2023 Z96.642 Trochanteric bursitis, left hip Acute M70.62 GERD (gastroesophageal reflux disease) Chronic K21.9 Spinal cord stimulator status Acute Z96.89 Nicotine dependence Acute F17.200 Hypothyroidism Chronic E03.9 Essential thrombocythemia Acute D47.3 Asthma Chronic J45.909 Medical History Medical History Varicose veins of both lower extremities Sprain of left knee Sprain of left hip Sinusitis Disorder of sacroiliac joint Postoperative hypothyroidism s/p radiation Piriformis syndrome Perforation of tympanic membrane in adult Knee pain, left Osteoporosis Degenerative disc disease Orthostatic hypotension pt. states this is cleared up Smoker Migraine Low blood pressure Loss of appetite Piriformis syndrome of left side Intestinal adhes w/ obst Insomnia Incisional hernia Acute hip pain, bilateral Headache History of gastrointestinal disorder Radial neck fracture Elevated blood-pressure reading without diagnosis of hypertension Dizziness Difficulty speaking History of depression of life partner Closed fracture of left humerus Acute bursitis of right shoulder Arthropathy of both sacroiliac joints Anxiety Anisocytosis Anemia Hypothyroidism (acquired) Vitamin D deficiency Varicose veins of anus or rectum Thrombosis Sciatica Restless legs Postprocedural septic shock Migraine without aura Low back pain Dysphagia Depression Dental caries Chronic pain Galeano involving less than 10% of body surface Anxiety disorder Surgical History Surgical History History of total left knee replacement (08/02/23) History of vein stripping DOS: 05/14/16; 09/24/16 S/P insertion of spinal cord stimulator 02/11/17 Pt reports it was removed in 2019 Hx of colonoscopy (~04/2024) History of delivery History of appendectomy History of nasal septoplasty dos 09/01/04 Hx of endoscopy (~04/2024) 07/02/20 12/11/20 03/26/21 H/O exploratory laparotomy pt estimates total of ~10 procedures dos 04/20/21, 07/30/21, 01/29/22 H/O ventral hernia repair dos 06/09/22 History of esophagogastroduodenoscopy (EGD) (~04/2024) and closure of duodenal fistula (02/09/23) History of splenectomy Lacerated liver Tobacco Smoking/Tobacco Use Status: Former Tobacco Use Alcohol Alcohol Intake: current Alcohol intake frequency: a few times a week Alcohol type: beer Substance Use Substance use: Never Substance use type: does not use Vital Signs and Lab Results Vital Signs Most Recent Vital Signs in EMR: Most Recent Vital Signs Temp Pulse Resp BP Pulse Ox 36.3 C L 68 16 131/78 100 10/23/24 10:15 10/23/24 10:15 10/23/24 10:15 10/23/24 10:15 10/23/24 10:15 Lab Results Blood Type / Crossmatch: No Data to Display Complete Blood Count: White Blood Count 8.16 10^3/uL (4.4-10.8) 10/11/24 11:50 Red Blood Count 3.67 10^6/uL (3.93-5.22) L 10/11/24 11:50 Hemoglobin 10.9 g/dL (11.2-15.7) L 10/11/24 11:50 Hematocrit 33.9 % (36.0-46.0) L 10/11/24 11:50 Platelet Count 418 10^3/uL (130-400) H 10/11/24 11:50 Complete Metabolic Panel: Sodium 142 mmol/L (136-145) 10/11/24 11:50 Potassium 4.2 mmol/L (3.5-5.1) 10/11/24 11:50 Chloride 105 mmol/L (98-107) 10/11/24 11:50 Carbon Dioxide 29.0 mmol/L (21.0-32.0) 10/11/24 11:50 BUN 13 mg/dL (7-18) 10/11/24 11:50 Creatinine 0.9 mg/dL (0.55-1.02) 10/11/24 11:50 Est GFR (CKD-EPI 2020) 67.92 (mL/min/1.73m2) 10/11/24 11:50 Calcium 9.2 mg/dL (8.5-10.1) 10/11/24 11:50 Glucose 96 mg/dL (74-106) 10/11/24 11:50 Liver Function Panel: No Data to Display Coagulation Panel: No Data to Display Cardiac Panel: No Data to Display Arterial Blood Gas: No Data to Display Venous Blood Gas: No Data to Display Pancreas Panel: No Data to Display Thyroid Panel: No Data to Display Infectious Disease: No Data to Display Blood Cultures: No Data to Display Toxicology Panel: No Data to Display Imaging and Studies Imaging and Studies Study information below may be from another EMR and interpreted by another provider. Please see original notes in EMR for more complete details. EKG Summary: 06/15: sinus Anesthesia Assessment and Plan Anesthesia History Personal History: No History of Anesthesia Complications Family History: No Family History of Anesthesia Complications Exercise Tolerance Exercise Tolerance: Metabolic Equivalents>4 Pertinent Negatives Pertinent Negatives: No Symptoms of GERD Cardiac & Pulmonary Exam Cardiac Exam: Normal S1/S2 Heart Sounds Pulmonary Exam: Clear Bilateral Breath Sounds Implantable Cardiac Device Does patient have a Pacemaker or an ICD?: No Airway Exam Known Difficult Airway: No Mallampati Class: 2 Mouth Opening: Normal (> 3cm) Thyromental Distance: Greater than 3 cm Neck Range of Motion: Full ROM Neck Circumference: Normal Teeth Condition: Generalized Poor Dentition, Loose or Chipped and Removable Dentures/Plates Upper ASA Classification ASA Score: ASA 3 Emergency Case?: No NPO Status NPO Status: NPO Clears >2 hours, Solids >8 hours Anesthesia Plan Resuscitation Status: Full Code Anesthesia Technique: Spinal Anesthesia Airway Planned: Natural Airway Monitors Used: Standard Monitors
[2024-10-23] MEDS: Acetaminophen 500 MG TAB 1000 MG PO ×2 (11:13→20:12)
[2024-10-23] MEDS: Celecoxib 200 MG CAP 400 MG PO (11:13)
[2024-10-23] MEDS: Lactated Ringers 1,000 ML 80 ML IV ×2 (11:30→16:38)
[2024-10-23] MEDS: fentaNYL 100 MCG/2 ML VIAL IVP ×5 (12:09→15:01)
[2024-10-23] MEDS: ceFAZolin 2 GM/50 ML BAG IVPB (12:11)
[2024-10-23] MEDS: TRANEXAMIC ACID/SOD. CHL. 1,000 MG/100 ML BAG 600 MG IVPB (12:24)
--- NOTE | 2024-10-23 13:37 | DI.RAD_ITS ---
Exam(s) XR HIP LT IN OR EXAM: XR HIP LT IN OR CLINICAL HISTORY: hemiarthroplasty of left hip. TECHNIQUE: 2D and realtime digital imaging was performed. COMPARISON: CR XR HIP LT COMPLETE AP PELVIS from 08/06/2024 FINDINGS: Hard copy image shows a left hip prosthesis. Please see procedure note for details. Fluoro time: 29.6seconds RADIATION DOSE DELIVERED: Ka,r=1.54 mGy
--- NOTE | 2024-10-23 14:51 | W.ANESPOSTOP ---
Postoperative Evaluation Date, Time and Location Date Performed: 10/23/24 Time Performed: 14:51 Patient Location: PACU Vital Signs Most Recent Imported Vital Signs: Most Recent Vital Signs Temp Pulse Resp BP Pulse Ox 36.1 C L 57 L 13 202/100 H 99 10/23/24 14:45 10/23/24 14:47 10/23/24 14:47 10/23/24 14:47 10/23/24 14:47 Pain Score Most Recent Pain Score: Most Recent Pain Score Pain Level 6 10/23/24 14:45 Assessment Mental Status: Awake (Alert & Oriented to Patient Baseline) Airway and Respiratory Function: Patent airway with normal (patient baseline) respiratory exam Cardiovascular Function: Hemodynamically Stable Hydration Status: Adequately Hydrated Nausea & Vomiting: No Nausea or Vomiting Pain: Pain is tolerable per patient Peripheral Nerve Block: Patient did not receive a nerve block Postoperative Comments:: Pt's pain was 8-10/10 prior to surgery, states is better now and tolerable. Will be an inpatient.
--- NOTE | 2024-10-23 15:03 | ROE_ITS ---
Operative Note Operative Note PRE-OP DIAGNOSIS: Left Hip Acetabular Chondromalacia POST-OP DIAGNOSIS: same PROCEDURE: Left Anterior Total Hip Arthroplasty with Intraoperative Navigation SURGEON: Kenrick Valencia PEN RIDER: Miranda Daniel ANESTHESIA TYPE: Spinal Refer to Anesthesia Record ESTIMATED BLOOD LOSS: 150 PATHOLOGY: none sent TOURNIQUET TIME: 0 COMPLICATIONS: None Patient was transported to: PACU Patient's condition: stable Implants: 1. [employer] Redapt Acetabular Component, 50mm 2. [employer] Dual Mobility Acetabular Liner, [id number] 3. [employer] Dual Mobility Liner, [id number] 4. [employer] Femoral Head, Size 28mm Indications: I have seen Alix in clinic for symptoms of hip arthritis of the acetabulum with previous unipolor hemiarthroplasty, confirmed with radiographic findings. She has exhausted nonoperative methods and was having significant limitations in daily function and desired better function and less pain. I discussed the technical details of a hip replacement. I explained the risks of the procedure to include, but not limited to, bleeding, infection, pain, stiffness, fracture, damage to nerves and vessels, damage to muscles and tendons, loosening, instability, leg length inequality, need for repeat procedure, blood clot and cardiopulmonary demise. Despite these risks, Alix elected to proceed. Findings: There was notable scarring around the unipolar head. The superior acetabulum showed significant wear. Procedure Description: Alix was greeted in the preoperative holding area where the correct side was identified and marked. The consent was reviewed with the patient and signed. The history and physical was updated. All questions were answered. She was taken back to the operating room. A spinal anesthestic was then administered. The feet were wrapped with cast padding and Coban and then placed into the boot liners and then into the boots. Care was taken to protect the skin and make sure the heels were fully down and the boots were stable. The patient was then positioned onto the HANA table. Both legs were held in a neutral position. SCDs were applied. The patient was then slid down onto a peroneal post. Prophylactic antibiotics in the form of Cefazolin were administered. 1g of Tranxemic Acid was given intravenously within 30 minutes of incision. The left leg was then prepped with Chloraprep and draped in a stand jose fashion. A second prep with Chloraprep was performed prior to placement of a shower-curtain type drape with Iodine impregnated skin protection. A timeout to confirm correct identity, side and site, procedure, allergies, anesthesia, and medical concerns was performed. An obliquely oriented incision was made starting lateral to the ASIS and running distal over the Tensor Fascia Lillian (TFL) muscle belly toward the fibular head, approximately 10cm. The skin and soft tissue was dissected sharply, through Deb?s fascia, and to the fascia of the TFL. With the fascia and superior border of the IT band identified, the fascia was incised with a new knife just above any perforators from the IT band. The TFL muscle belly was bluntly dissected away from the fascia and moved laterally. The fat between TFL and rectus was identified to ensure the dissection was not within the TFL. Blunt dissection created space between abductors and the capsule and retractor was placed over the lateral femoral neck. The fibers of the rectus femoris tendon were identified and these were freed from the anterior capsule. A second cobra retractor was placed around the medial femoral neck. The TFL was further retracted laterally to show the deep fascia. Careful dissection through this layer identified three main crossing vessels of the lateral femoral circumflex. These were cauterized in multiple locations and then cut without any noticeable bleeding. The TFL was further released bluntly from the deep fascia to expose anterior hip capsule and fat The soft tissue orthopaedic retractor was then placed beneath the TFL and against sartorius and medial soft tissues to protect and retract the soft tissues. A T-capsulotomy was then performed starting at the superior lateral acetabulum and moving distally to the intertrochanteric ridge. These capsular flaps were tagged with a No. 1 Ethibond and elevated from within. The capsular flaps were released to the shoulder of the lateral neck and to the lesser trochanter to give excellent visualization of the proximal femur. A neck osteotomy was performed using an oscillating saw based on preoperative templates. This cut started in the shoulder and of the lateral neck and exited medially. The saw was at all times directed medially to avoid injury to the greater trochanter. Gross traction was applied to the leg and the osteotomy opened. The femoral head was removed with a corkscrew, making sure to protect the TFL on its exit. Traction was released after head removal. This was measured on the back table to determine the starting reamer size. Portions of the rectus obscuring visualization were minimally elevated off the superior acetabulum. An anterior retractor was placed over the anterior wall between capsule and labrum and attached to the Gripper retraction system. The femur was rotated to 90 degrees and medial capsule was fully released until the lesser trochanter was palpable and visible; the femur was returned to 30 degrees. A posterior retractor was placed similarly between capsule and labrum. This provided excellent visualization. The contents of the cotyloid fossa were removed with electrocautery and the labrum was removed with a knife. There was significant chondromalacia of the superior acetabulum. Acetabular reaming began with a 43mm reamer. This first reaming was directed anterior to posterior and medial to get down to the true floor. This was inspected and reamed until the true floor was reached. The anterior retractor was then released and entry and exit was provided by traction on the capsular flaps. I then reamed sequentially up to a 49mm reamer where good fit was obtained. The larger reamers were oriented based on anatomical reference of the anterior and lateral toribio to ensure proper abduction and anteversion. Positioning and size was confirmed with the fluoroscopy. A 50mm S&N Redapt acetabular component was selected. The deep tissues were irrigated. The acetabular component was then impacted in a position of about 40-45 degrees of abduction and 15-20 degrees of anteversion, using the patient?s anatomy as the ultimate landmark. Fluoroscopy was used to confirm this. There was excellent compressor house operator of the acetabular component and the inserting handle was removed. A primary acetabular screw was placed into the ilium by drilling through one of the holes in the acetabular component. This was measured and an approrpriately sized screw was placed with excellent purchase. It was checked not to be proud. A second screw was placed in a similar fashion. The acetabular liner, [employer] [id number] Redapt dual mobility liner, was inserted. There was no soft tissue interposition. The liner was then impacted into position and confirmed to be well-seated. A portion of the lucho-articular cocktail was then injected around the acetabulum into the capsule and periosteum. This cocktail consisted of 123mg of Ropivacaine, 0.25mg of Epinephrine, 0.04mg of Clonidine, and 15mg of Ketorolac, diluted to 50cc. The leg was rotated to 120 degrees. Any remaining medial capsule was released until the lesser trochanter was easily palpable. A retractor was placed me dially. A trial [id number] dual mobility head was then inserted. The leg was brought out of extension and adduction and then reduced with traction and internal rotation. The leg was stable anteriorly in a position of 30 degrees of extension and 90 degrees of external rotation. After confirming appropriate positionoing with x-ray and stability with testing, the hip was dislocated and the trial head removed. The periosteum and surrounding tissue was injected with remaining portion of the lucho-articular cocktail. The selected femoral head, size 28+4mm, was then inserted into the dual mobility liner. This dual mobility construct was then placed onto the clean and dry trunnion and secured with impaction onto the tapered fit. The leg was brought back out of extension and adduction and reduced with traction and internal rotation. Stability was confirmed with no shuck at 90 degrees of external rotation and 30 degrees of extension. No impingement through range of motion arc. Final x-ray images were obtained with fluoroscopy to confirm adequate positioning and no intraoperative fracture. The deep tissues were thoroughly irrigated with Surgiphor, betadine solution. This was allowed to sit in the wound for 3 minutes before being thoroughly irrigated out with normal saline. The capsule was then reapproximated with the previously placed Ethibond sutures. The TFL fascia was finally closed with a No. 2 Stratafix, barbed suture. Deep tissues were then reapproximated with 0 Vicryl and a running 2-0 Vicryl. The skin was closed with a running 4-0 Monocryl in a subcuticular fashion. This was reinforced with skin glue. A Mepilex silver dressing was applied. At the end of the case, all counts were correct. Alix was transferred to the hospital bed without difficulty and suffering no apparent complication. She has a good prognosis. Physical therapy will start today and without restrictions, weight-bearing as tolerated. Aspirin 81mg BID will be used for DVT prophylaxis. Date of Procedure: 10/23/24
[2024-10-23] MEDS: HYDROmorphone 1 MG/ML SYR IVP ×2 (15:15→15:28)
[2024-10-23] MEDS: oxyCODONE 5 MG TAB PO ×2 (15:58→21:16)
[2024-10-23] MEDS: ceFAZolin 1 GM/50 ML BAG IVPB ×2 (15:58→23:50)
--- NOTE | 2024-10-23 16:10 | PT.INIE ---
PT Notes Visit Reasons: Left hip DJD Physical Therapy Initial Evaluation Date: 10/23/2024 Referring Doctor: Dr. Valencia PT Orders: PT CONSULT: S/p Ortho surgery Precautions: WBAT LLE,TEDs x 2 weeks Patient Profile/Admitting Diagnosis: Patient is 73-year-old female presenting s/p elective revision of left hemiarthroplasty including new left acetabular placement and head exchange on 10/23/2024 secondary to painful hemiarthroplasty status post femoral head fracture in 2022. Postop uncomplicated PMHX: History of hemiarthroplasty of left hip (Acute ~09/2023) Bupivacaine only injection under ultrasound: 08/31/2024Trochanteric bursitis, left hip (Acute) Most recent Depo-Medrol injection: 09/12/2023History of total left knee replacement (Acute 08/02/23) GERD (gastroesophageal reflux disease) (Chronic) Spinal cord stimulator status (Acute) Nicotine dependence (Acute) Hypothyroidism (Chronic) Essential thrombocythemia (Acute) Asthma (Chronic) Medical History Varicose veins of both lower extremities Sprain of left knee Sprain of left hip Sinusitis Disorder of sacroiliac joint Postoperative hypothyroidism s/p radiationPiriformis syndrome Perforation of tympanic membrane in adult Knee pain, left Osteoporosis Degenerative disc disease Orthostatic hypotension pt. states this is cleared upSmoker Migraine Low blood pressure Loss of appetite Piriformis syndrome of left side Intestinal adhes w/ obst Insomnia Incisional hernia Acute hip pain, bilateral Headache History of gastrointestinal disorder Radial neck fracture Elevated blood-pressure reading without diagnosis of hypertension Dizziness Difficulty speaking History of depression of life partner Closed fracture of left humerus Acute bursitis of right shoulder Arthropathy of both sacroiliac joints Anxiety Anisocytosis Anemia Hypothyroidism (acquired) Vitamin D deficiency Varicose veins of anus or rectum Thrombosis Sciatica Restless legs Postprocedural septic shock Migraine without aura Low back pain Dysphagia Depression Dental caries Chronic pain Galeano involving less than 10% of body surface Anxiety disorder Surgical History (Updated 08/31/24 @ 09:48 by Miranda Daniel) History of vein stripping DOS: 05/14/16; 09/24/16/P insertion of spinal cord stimulator 02/11/17 Pt reports it was removed in 2019Hx of colonoscopy (~04/2024) History of delivery History of appendectomy History of nasal septoplasty dos 09/01/04Hx of endoscopy (~04/2024) 07/02/20 12/11/20 03/26/21H/O exploratory laparotomy pt estimates total of ~10 procedures dos 04/20/21, 07/30/21, 01/29/22H/O ventral hernia repair dos 06/09/22History of esophagogastroduodenoscopy (EGD) (~04/2024) and closure of duodenal fistula (02/09/23)History of splenectomy Lacerated liver Social History/Home Situation: Patient resides in her own two-story home with her daughter. Patient has a ramp to enter. Patient will be staying on the first floor where she has a half bath. Full bath on the second floor. Patient has 15 steps to the second floor there is a railing on the right on the first 3 steps then a platform then bilateral rails on the remaining 12. Patient independent with ADLs, cooking, light homemaking. 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 Equipment Owned/DME: FWW, rollator with brakes and seat, 2 canes, grab bars in the shower and next to toilet and both bathrooms she has a hand-held shower and a shower seat. Subjective: Patient reports her left hip feels better than it did before. She reports she will be staying on the first floor of her home and her daughter will be with her for 1 week then will have to return to work. Patient reports she utilizes a cane 1 rail on the initial 3 steps to go to her second floor Objective: General Observation: Female presenting supine in bed hook lying position with ice to left hip IV fluids infusing in the left upper extremity Mental Status: Alert and oriented x 4 pleasant cooperative & agreeable to participate Pain: Left hip 4/10 ROM: Right Upper Extremity: WNL Left Upper Extremity: WNL Right Lower Extremity: WNL Left Lower Extremity: Hip flexion 110 degrees, abduction 10 degrees knee and ankle within normal limits Strength: Right Upper Extremity: 5/5 Left Upper Extremity: 5/5 Right Lower Extremity: 5/5 Left Lower Extremity: Hip flexion: 3/5; hip abduction: 3 -/5; hip extension: 3 -/5; knee extension: 3 3/5; knee flexion: /5 ankle DF: 3/5 ; ankle PF: 3/5 Sensation: Intact Bed Mobility/Transfers: Rolling supervision with increased time Supine to sit supervision Sit to supine supervision with increased time Sit to stand supervision Stand to sit supervision Bed to chair supervision with FWW Gait: Ambulates with FWW 60 feet reciprocal pattern level surfaces including turns slow anupam noted Balance: Static Sitting: Normal Dynamic Sitting: Normal Static Standing: Good Dynamic Standing: Good- Special Tests: Mobility Limitations Standardized Measure [facility] AM-PAC 6 clicks Basic Mobility Inpatient Short Form: Raw Score: 22 CMS Score: 20.91% Informed Consent/Education: Patient and daughter instructed in purpose of PT consult. Packet containing NICOLETTE exercise protocol has been given to patient. Education and training on initial set of exercises that can be done at home have been completed with patient. Treatment: Therapeutic activity 91014 functional transfers from various surfaces with use of FWW simulating transfers within her home x 7 trials with height of surface 17 to 20 inches patient demonstrates safe technique with proper hand placement occasional cues for safe approach to surface. Dynamic tasks in standing with 1 upper extremity support for self-care management including toileting hygiene. Bending and reaching to don and doff socks without reports of increased pain and without loss of balance. Assessment: Patient is a 73-year-old female presents with clinical signs and symptoms consistent with current/admitting diagnoses that have resulted to mobility limitations, gait instability, generalized weakness, and impairment of motor control as demonstrated by the following impairment level findings: 1. Decreased strength to left hip major muscle groups 2. Impaired standing balance 3. Limitation of joint range of motion in left hip 4. Impaired functional activity tolerance 5. Pain left hip Impairments are contributing to the following functional limitations: 1. Inability to safely ambulate without assistive device 2. Increase completion time for mobility ADL performance 3. Increased fall risk 4. Inability to safely perform stairs without assistance Patient is assessed as a moderate complexity based on the following: History: 73-year-old female with impairment level findings, functional limitations, and past medical history as indicated above Examination: Demonstrable impairment in strength, balance, and mobility level with underlying impairments and functional limitations as documented above Presentation: Evolving Decision Making: Moderate Goals: 1. Supervised supine to and from sit 2. Supervised transfers with FWW 3. Supervised ambulation with FWW>/=to 200 feet level surfaces including turns 4. Supervised with written home exercise program 5. Contact-guard assist on 2 steps with bilateral rails Plan of Care/Treatment Plan: PT evaluation and 1-2 treatment session only for functional mobility training using recommended AD and for HEP instruction. DISCHARGE RECOMMENDATIONS: Home with home exercise program and home health PT TREATMENT CODE/TIME: 00588, [id number], [id number] Thank you for the opportunity to participate in the care of this patient. Shavon Barroso, PT [facility]
[2024-10-23] MEDS: Cyclobenzaprine 10 MG TAB 5 MG PO (16:35)
[2024-10-23] MEDS: HYDROmorphone 2 MG/ML SYR 0.5 MG IVP (18:07)
[2024-10-23] MEDS: Normal Saline Flush 10 ML SYR IV (18:08)
[2024-10-23] MEDS: Celecoxib 200 MG CAP PO (20:10)
[2024-10-23] MEDS: Gabapentin 300 MG CAP 600 MG PO (20:10)
[2024-10-23] MEDS: Pantoprazole 40 MG TABCR PO (20:11)
[2024-10-23] MEDS: traZODone 50 MG TAB PO (20:11)
[2024-10-23] MEDS: Beta-Carotene(A) w/C,E, & Minerals TAB 1 TAB PO (20:11)
[2024-10-23] MEDS: Aspirin E.C. 81 MG TABEC PO (20:11)
[2024-10-23] MEDS: rOPINIRole 1 MG TAB 4 MG PO (20:11)
[2024-10-23] MEDS: Propranolol 20 MG TAB PO (20:11)
[2024-10-23] MEDS: Levothyroxine 125 MCG TAB PO (20:11)
[2024-10-23] MEDS: LORazepam 1 MG TAB 2 MG PO (21:38)
[2024-10-24 03:20] VITALS: BP 110/67; PULSE 77; RESP 18; TEMP 36.3; O2SAT 94
[2024-10-24] MEDS: Cyclobenzaprine 10 MG TAB 5 MG PO (04:00)
[2024-10-24] MEDS: oxyCODONE 5 MG TAB PO ×3 (04:00→11:08)
--- NOTE | 2024-10-24 07:49 | W.PM.DS.N ---
Date of service: 10/24/24 Time of Service: 08:41 DS: Diagnosis Discharge Diagnosis (1) Chondromalacia, left hip: Status: Acute Discharge Plan Disposition Patient Disposition: Home W/Home Health Services Condition: Good Discharge Details Reason For Visit: Left hip DJD Admit Date/Time: 10/23/24 11:15 Admit Provider: Kenrick Valencia Attending Provider: Kenrick Valencia Primary Care Provider: LEXA STEVENS Hospital Course Hospital Course: Patient was admitted to the medical/surgical floor following the procedure. The surgery was tolerated well without any notable medical, surgical, or anesthetic complications. Mobilization began postoperatively. She was voiding spontaneously. Vitals were stable. Physical therapy worked with the patient and was cleared for discharge home. No acute medical issues. Pain was controlled on oral regimen. Home Meds and New Rx's Prescriptions: New celecoxib [Celebrex] 200 mg capsule 200 mg PO BID PRNQty: 60 0RF Rx Instructions: Take one tablet twice daily for pain and inflammation aspirin 81 mg tablet,delayed release (DR/EC) 81 mg PO BID 30 Days Qty: 60 0RF acetaminophen 500 mg tablet 1,000 mg PO Q8H PRN Qty: 90 0RF Rx Instructions: Take two tablets up to every 8 hours as needed for pain dexamethasone 4 mg tablet 4 mg PO DAILY Qty: 2 0RF Rx Instructions: Take one tablet once daily for two days docusate sodium [Colace] 100 mg capsule 100 mg PO BID Qty: 30 0RF oxycodone 5 mg tablet 5 mg PO Q6H PRNQty: 12 0RF Rx Instructions: Take one tablet up to every 6 hours as needed for severe postoperative pain Continued magnesium oxide 400 mg magnesium tablet 400 mg PO DAILY cholecalciferol (vitamin D3) 1,250 mcg (50,000 unit) capsule 1,250 mcg PO QWEEK pantoprazole 40 mg tablet,delayed release (DR/EC) 40 mg PO BID atorvastatin 80 mg tablet 80 mg PO DAILY ravmzswhsl-nwborxcwrg-ofu-cod [id number] mg capsule 1 cap PO Q4H PRN lorazepam 2 mg tablet 2 mg PO HS MAY REPEAT X1 Patient Comments: 2mg Daily HS and second if needed cyclobenzaprine 5 mg tablet 5 mg PO TID PRN levothyroxine 125 mcg capsule 125 mcg PO HS Rx Instructions: Pt. states she takes it HS vit C,E,Zn,Pp--qcn-zeax 250-2.5-0.5 mg capsule 1 cap PO HS ropinirole 2 mg tablet 4 mg PO HS albuterol sulfate [Ventolin HFA] 90 mcg/actuation HFA aerosol inhaler 2 puff inhalation Q4H PRN ondansetron 4 mg tablet,disintegrating 4 mg PO Q6H gabapentin 300 mg capsule 600 mg PO BID trazodone 100 mg tablet 50 mg PO QHS propranolol 20 mg tablet 20 mg PO BID Patient Comments: TAKE ONE TABLET BY MOUTH TWICE A DAY Discontinued oxycodone 5 mg capsule 5 mg PO BID PRN acetaminophen 500 mg tablet 1,000 mg PO Q8H PRN Qty: 90 0RF Rx Instructions: Take two tablets up to every 8 hours as needed for pain Discharge Instructions Additional Instructions: Total Hip Discharge Instructions Activity: The most important activity is to walk. You should try to take short walks a few times a day. You have no restrictions on movement or positioning, but do not try to force what you do. You will find some stiffness and weakness with hip flexion (lifting your knee). Do not try to strengthen this too early, continue to practice walking and stairs and this will come. - Outpatient physical therapy can be helpful to help return you to a normal gait and improve your flexibility and strength. This can start around 2 weeks. For some patients, it?s not necessary. Usually this is determined at the time of discharge or at the first post-operative visit. - You should wear the HERBERT hose on both legs for 2 weeks. Dressing: Keep the surgical dressing in place for at least one week. After the first week it may be removed and replace with light gauze and tape or nothing. It may get wet after 3 days but avoid soaking the dressing. If it gets wet, just lightly pat dry. It is important to always keep some gauze between skin folds, especially when you are sitting. Spend some time with the wound exposed when you are lying flat as the incision does wrinkle onto itself. Medications: - You should take Tylenol and an anti-inflammatory Celebrex as your primary pain control medications. If the Celebrex is too expensive or not covered, please call the office for another alternative (Advil/Ibuprofen or Naproxen/Aleve). - You have been prescribed a stronger pain medication Oxycodone for breakthrough pain, take as needed as prescribed. We will try to start with the 5mg every 4 hours as needed and slowly wean down. If you need to double up (10mg), you may do that once or twice but call Dr. Valencia if you need to do that more than a few times. - You take a stomach acid reduction agent Pantoprozole at baseline - continue with this medication to help reduce stomach acid and reflux. - You have also been prescribed Decadron to help with post-operative nausea and pain. You will take this for two days starting tomorrow. - You will be taking Aspirin 81mg twice a day for DVT prevention unless instructed otherwise. - If you have constipation you should take Colace (which has been prescribed) or Miralax (which is available [id number]). It takes most people 3-4 days to have a bowel movement. Follow-up: 2 weeks If you have any acute concerns or questions, please do not hesitate to contact the office at [phone]. You may contact Dr. Valencia with any questions after hours through the hospital at [phone] or on his cell phone at [phone]. 1. Encounter Date and Reason I certify that Alix Morales was seen by Kenrick Valencia MD on 10/24/24 and that I had a [id number] encounter with this patient that meets the physician face to face encounter requirements. 2. Clinical Findings Supporting Skilled Need and Homebound Status I certify that home health services are medically necessary, include either intermittent jail and/or physical/speech therapy, and that this patient is homebound in that absences from the home require considerable and taxing effort and are infrequent or of short duration, or are attributable to the need to receive medical care. [X] (a) Attached documentation from encounter provides clinical findings supporting skilled need and homebound status (including what assistance patient requires to leave the home). The encounter with the patient was in whole, or in part, for the following medical condition, which is the primary reason for home health care: Left hip DJD [facility]: Physical Therapy: Alix would benefit from home health physical therapy to address gait dysfunction and weakness following conversion hip arthroplasty on the left. She has no formal restrictions and may weight bear as tolerated, recommended with walker. Speech Therapy: Homebound: Alix is unable to leave her home unassisted due to weakness and gait dysfunction from recent surgery. 3. Certification and Authentication I certify that I composed the above information based on my clinical judgement relating to this patient's medical condition and, if applicable, clinical findings communicated to me by the NPP or inpatient physician who performed the Home Health Referral. All further orders will be obtained through Dr. Valencia Stand Alone Forms: Nursing Discharge Form Referrals: Kenrick Valencia MD [ [facility] STAFF PHYSICIAN] - 11/05/24 11:00 am Activity:: Activity as Tolerated Equipment/Supplies:: No Equipment Needed Diet:: As Tolerated Discharge Orders Discharge Orders: Discharge Order (Routine); Ordered 10/24/24 Ordered By: Kenrick Valencia DS: Summary Time Spent with Patient providing and/or coordinating discharge services: Less than 30 minutes Status at Discharge Functional status at discharge: uses cane/walker Overall status at discharge: patient is progressing back to baseline Mental Status: mental status grossly normal Speech and Movement: speech and movement normal Mood: congruent mood Affect: normal affect Quality:SDOH Health Related Social Needs: No Data to Display Exam Narrative Exam Narrative: Sitting up in the chair. NAD. AAOx3. L hip dressing c/d/i. No pain with passive hip flexion/IR/ER. SILT DP/SP/Tib. Psych Mental Status: mental status grossly normal Speech and Movement: speech and movement normal Mood: congruent mood Affect: normal affect DS: Data Vitals/I&O Vitals and I&O: Vital Signs Temperature 97.3 F L 10/23/24 10:15 Pulse 68 10/23/24 10:15 Pulse Rhythm Regular 10/23/24 10:15 Respiratory Rate 16 10/23/24 10:15 Respiratory Depth Normal 10/23/24 10:15 Blood Pressure 131/78 10/23/24 10:15 Pulse Oximetry 100 10/23/24 10:15 Oxygen Delivery Method Room Air 10/23/24 10:15 Oxygen Flow Rate 0 10/23/24 10:15 Pain Level 7 10/23/24 10:15 Intake & Output 10/22/24 10/22/24 10/23/24 11:59 23:59 11:59 Weight 107 lb 5.842 oz PFSH All Active Problems (Updated 10/24/24 @ 07:50 by Kenrick Valencia MD) Chondromalacia, left hip (Acute) s/p conversion hip arthroplasty - 10/23/24 History of hemiarthroplasty of left hip (Acute ~09/2023) Bupivacaine only injection under ultrasound: 08/31/2024 Trochanteric bursitis, left hip (Acute) Most recent Depo-Medrol injection: 09/12/2023 GERD (gastroesophageal reflux disease) (Chronic) Spinal cord stimulator status (Acute) Nicotine dependence (Acute) Hypothyroidism (Chronic) Essential thrombocythemia (Acute) Asthma (Chronic) Medical History Varicose veins of both lower extremities Sprain of left knee Sprain of left hip Sinusitis Disorder of sacroiliac joint Postoperative hypothyroidism s/p radiation Piriformis syndrome Perforation of tympanic membrane in adult Knee pain, left Osteoporosis Degenerative disc disease Orthostatic hypotension pt. states this is cleared up Smoker Migraine Low blood pressure Loss of appetite Piriformis syndrome of left side Intestinal adhes w/ obst Insomnia Incisional hernia Acute hip pain, bilateral Headache History of gastrointestinal disorder Radial neck fracture Elevated blood-pressure reading without diagnosis of hypertension Dizziness Difficulty speaking History of depression of life partner Closed fracture of left humerus Acute bursitis of right shoulder Arthropathy of both sacroiliac joints Anxiety Anisocytosis Anemia Hypothyroidism (acquired) Vitamin D deficiency Varicose veins of anus or rectum Thrombosis Sciatica Restless legs Postprocedural septic shock Migraine without aura Low back pain Dysphagia Depression Dental caries Chronic pain Galeano involving less than 10% of body surface Anxiety disorder Surgical History History of total left knee replacement (08/02/23) History of vein stripping DOS: 05/14/16; 09/24/16 S/P insertion of spinal cord stimulator 02/11/17 Pt reports it was removed in 2019 Hx of colonoscopy (~04/2024) History of delivery History of appendectomy History of nasal septoplasty dos 09/01/04 Hx of endoscopy (~04/2024) 07/02/20 12/11/20 03/26/21 H/O exploratory laparotomy pt estimates total of ~10 procedures dos 04/20/21, 07/30/21, 01/29/22 H/O ventral hernia repair dos 06/09/22 History of esophagogastroduodenoscopy (EGD) (~04/2024) and closure of duodenal fistula (02/09/23) History of splenectomy Lacerated liver Social History Smoking/Tobacco Use Status: Former Tobacco Use Quit Date: 08/19/24 Smoking risk assessment performed?: Yes Alcohol Intake: current Alcohol Intake frequency: a few times a week Alcohol type: beer Drug use: Never Substance use type: does not use Housing: house Additional Social history: [employer]
[2024-10-24] MEDS: Magnesium Oxide 400 MG TAB PO (08:08)
[2024-10-24] MEDS: Pantoprazole 40 MG TABCR PO (08:08)
[2024-10-24] MEDS: Celecoxib 200 MG CAP PO (08:08)
[2024-10-24] MEDS: ceFAZolin 1 GM/50 ML BAG IVPB (08:08)
[2024-10-24] MEDS: Acetaminophen 500 MG TAB 1000 MG PO (08:09)
[2024-10-24] MEDS: Aspirin E.C. 81 MG TABEC PO (08:09)
[2024-10-24] MEDS: Propranolol 20 MG TAB PO (08:09)
[2024-10-24] MEDS: Atorvastatin 40 MG TAB 80 MG PO (08:09)
[2024-10-24] MEDS: Gabapentin 300 MG CAP 600 MG PO (08:09)
[2024-10-24] MEDS: Dexamethasone 4 MG TAB PO (08:09)
[2024-10-24 08:25] VITALS: BP 133/71; PULSE 77; RESP 16; TEMP 36.6; O2SAT 98
--- NOTE | 2024-10-24 10:41 | PT.INTREAT ---
Date of service: 10/24/24 Time of Service: 09:40 PT Notes Visit Reasons: Left hip DJD Inpatient Physical Therapy Treatment Note [facility] Date: 10/24/2024 PRECAUTIONS: WBAT LLE,TEDs x 2 weeks SUBJECTIVE: Stated she is doing well and eager to get home. Pain level is very tolerable. OBJECTIVE: ? PAIN: Indicated the pain is tolerable, but did have her pain meds earlier this morning. Therapeutic Activities ([id number]): Direct one-on-one instruction in dynamic activities to improve functional performance. ? BED MOBILITY/TRANSFERS? Supine-sit: SBA ? Sit-supine: SBA ? Sit-stand: SBA? Stand-sit: SBA? Provided skilled cues and instruction on performance and technique throughout. GAIT? Assistive Device: FWW? Weight bearing: As tolerated on the left Assist: SBA ? Distance:? 100ft x 2 ? Slow controlled ambulation without complaints of irritation.? STAIRS:Up/down 2 6 inch and 3 4 inch steps with 2 hand rails. Is able to perform step to and reciprocal, but indicated she prefers reciprocal.? Exercises ? Educated in ankle pumps, quad sets and glut sets to be performed every 2 hours. As per tolerance. Provided skilled instruction in proper exercise performance ASSESSMENT:? Tolerated session very well with good effort given. PLAN: Being discharged to home, plans to continue PT with HHPT. TREATMENT CODE/TIME: [id number], 9:40 to 10:10 am (30 minutes) DISCHARGE RECOMMENDATIONS: Home with home exercise program and home health PT
== END 2024-10-24 11:11 | disposition home health service (06) | DRG 554 ==
LOC: DSU 13:59 → MS 15:41
PROVIDERS: Admitting Provider Student in an Organized Health Care Education/Training Program; PCP Family Medicine; Visit Provider Student in an Organized Health Care Education/Training Program
PROC: (CPT 27130; principal; 2024-10-23 12:30)
DX: M94.252 Chondromalacia, left hip (principal); D69.3 Immune thrombocytopenic purpura; M16.12 Unilateral primary osteoarthritis, left hip; M70.62 Trochanteric bursitis, left hip; Z96.652 Presence of left artificial knee joint; K21.9 Gastro-esophageal reflux disease without esophagitis; Z96.82 Presence of neurostimulator; J45.909 Unspecified asthma, uncomplicated; E03.9 Hypothyroidism, unspecified
CPT/HCPCS: 27132; 20985; 97162; 97530; 73501; J0690; J1100; J1171; J2250; J2401; J2405; J2704; J3010; J8540

== ENCOUNTER 2024-11-05 15:29 | Outpatient (CLI) | payer OTHER, SELFPAY ==
--- NOTE | 2024-11-05 11:30 | DI.RAD_ITS ---
Exam(s) XR HIP LT COMPLETE AP PELVIS EXAM: XR HIP LT COMPLETE AP PELVIS CLINICAL HISTORY: 1st post op S/P L NICOLETTE. TECHNIQUE: 2D digital imaging was performed. Two views. COMPARISON: CR XR HIP LT COMPLETE AP PELVIS from 08/06/2024 FINDINGS: BONES: No acute fracture is present. No bony destructive lesion is seen. JOINTS: No dislocation present. The SI joints and pubic symphysis are intact. Stable alignment of le ft hip prosthesis. The right hip joint space is maintained. SOFT TISSUE: Normal. IMPRESSION: Stable appearance of left total hip prosthesis. DATA REPOSITORY: RADIATION DOSE DELIVERED:
== END 2024-11-05 15:30 | disposition home or self-care (01) ==
LOC: DIORS 15:29
PROVIDERS: PCP Family Medicine; Visit Provider Physician Assistant
DX: Z96.642 Presence of left artificial hip joint (principal); Z47.1 Aftercare following joint replacement surgery
CPT/HCPCS: 73502

== ENCOUNTER → 2025-02-14 13:18 | Outpatient (BNVA) | payer MEDICARE, SELFPAY | PROVIDERS: PCP Family Medicine; Referring Provider Family Medicine; Visit Provider Physician Assistant | DX: S52.501A Unspecified fracture of the lower end of right radius, initial encounter for closed fracture (principal); W01.0XXA Fall on same level from slipping, tripping and stumbling without subsequent striking against object, initial encounter; M70.62 Trochanteric bursitis, left hip | CPT/HCPCS: 20610; 99213; J1010 ==

== ENCOUNTER 2025-03-01 11:37 | Outpatient (CLI) | payer MEDICARE, SELFPAY ==
--- NOTE | 2025-03-01 11:11 | DI.RAD_ITS ---
Exam(s) XR WRIST RT LIMITED EXAM: XR WRIST RT LIMITED CLINICAL HISTORY: R wrist fx. TECHNIQUE: 2D digital imaging was performed. COMPARISON: CR XR WRIST MIN 3 VIEWS RT from 02/13/2025 CR XR WRIST 2V RT from 02/21/2025 FINDINGS: Two views-AP and lateral Again noted is the previously described fracture of the distal radius which is again noted to involve the radiocarpal joint. Fracture lines are still visible but there is no further displacement and no significant ulnar variance. There is no fracture of the ulnar styloid. No fracture of the scaphoid and scapholunate distance is normal. IMPRESSION: Stable appearance of the distal radial fracture site. DATA REPOSITORY: RADIATION DOSE DELIVERED:
== END 2025-03-01 11:38 | disposition home or self-care (01) ==
LOC: DIORS 11:37
PROVIDERS: PCP Family Medicine; Referring Provider Family Medicine; Visit Provider Physician Assistant
DX: S52.501D Unspecified fracture of the lower end of right radius, subsequent encounter for closed fracture with routine healing; X58.XXXD Exposure to other specified factors, subsequent encounter
CPT/HCPCS: 99213; 73100

== ENCOUNTER 2025-03-29 09:31 | Day surgery (SDC) | payer MEDICARE, SELFPAY ==
[2025-03-29] VITALS (21 sets, daily range): BP systolic 129–193; BP diastolic 67–123; PULSE 70–90; RESP 11–20; TEMP 36.1–36.8; O2SAT 89–100; BMI 21.7
--- NOTE | 2025-03-29 09:15 | DI.RAD_ITS ---
Exam(s) XR WRIST RT LIMITED EXAM: XR WRIST RT LIMITED CLINICAL HISTORY: RIGHT DISTAL RADIUS FRACTURE TECHNIQUE: 2D and realtime digital imaging was performed. CONTRAST MATERIAL: Refer to procedure report. COMPARISON: CR XR WRIST RT LIMITED from 03/29/2025 FINDINGS: Fluoroscopy was provided for Dr. Valencia during the performance of a open reduction and internal fi xation of the distal radial fracture. Please refer to the procedure report for complete details. Ka,r=0.39 mGy IMPRESSION: RADIATION DOSE DELIVERED: 0.0 0.0 0
--- NOTE | 2025-03-29 09:56 | W.ANESPRE ---
General Info Date of Service Date Performed: 03/29/25 Height: 4 ft 11 in Weight: 48.7 kg Body Mass Index (BMI): 21.7 Surgical Procedure: Operation Date: 03/29/25 10:10 Proposed Procedure Side Surgeon p Wrist ORIF Distal Radius Kenrick Valencia MD Meds Allergies and Home Medications Allergies Allergy/AdvReac Type Severity Reaction Status Date / Time No Known Allergies Allergy Verified 03/29/25 09:59 Home Medication ?Medication ?Instructions ?Recorded albuterol sulfate 90 mcg/actuation 2 puff inhalation Q4H PRN 03/16/23 aerosol inhaler (Ventolin HFA) cyclobenzaprine 5 mg tablet 5 mg PO TID PRN 03/16/23 levothyroxine 125 mcg capsule 125 mcg PO HS 03/16/23 ropinirole 2 mg tablet 4 mg PO HS 03/16/23 vit 1 cap PO HS 03/16/23 C,E,zinc,Ru-eaeda-3-lutein-zeaxanthin 250 mg-2.5 mg-0.5 mg capsule ondansetron 4 mg disintegrating 4 mg PO Q6H 07/19/23 tablet butalbital 50 mg-acetaminophen 325 1 cap PO Q4H PRN 08/06/24 mg-caffeine 40 mg-codeine 30 mg cap cholecalciferol (vitamin D3) 1,250 1,250 mcg PO QWEEK 08/06/24 mcg (50,000 unit) capsule gabapentin 300 mg capsule 600 mg PO BID 08/06/24 magnesium oxide 400 mg PO DAILY 08/06/24 pantoprazole 40 mg tablet,delayed 40 mg PO BID 08/06/24 release trazodone 100 mg tablet 50 mg PO QHS 08/06/24 lorazepam 2 mg tablet 2 mg PO HS MAY REPEAT X1 10/11/24 acetaminophen 500 mg tablet 1,000 mg (2 x 500 mg) PO Q8H PRN 10/23/24 pain #90 tabs docusate sodium 100 mg capsule 100 mg PO BID #30 caps 10/23/24 (Colace) propranolol 20 mg tablet 20 mg PO BID 10/23/24 oxycodone 5 mg tablet 5 mg PO BID PRN pain #20 tabs 11/15/24 atorvastatin 80 mg tablet 40 mg PO DAILY 03/01/25 celecoxib 200 mg capsule See Rx Instructions .Route 03/06/25 .COMPLEX #60 caps losartan 25 mg tablet mg 03/29/25 Current Visit Medications: Current Medications Generic Name Dose Route Start Last Admin Trade Name Freq PRN Reason Stop Dose Admin Ringer's Solution 1,000 mls @ 80 mls/hr 03/29/25 06:00 IV 03/29/25 23:59 INFUSION BHAVYA Cefazolin Sodium/Dextrose 2 gm in 50 mls @ 100 mls/hr 03/29/25 06:00 Ancef Duplex IVPB 03/29/25 23:59 PREOP BHAVYA IV Miscellaneous Supplies 1 each 03/29/25 06:00 Iv Access IV 03/29/25 23:59 DIRECTED BHAVYA Sodium Chloride 0 ml 03/29/25 06:00 Normal Saline Flush 10 Ml Syr IV 03/29/25 23:59 PRN PRN Sodium Chloride 0 ml 03/29/25 06:00 Normal Saline 10 Ml Vial IJ 03/29/25 23:59 DIRECTED PRN Sterile Water 0 ml 03/29/25 06:00 Water,Injection,Sterile 10 Ml Vial IJ 03/29/25 23:59 DIRECTED PRN PFSH Active Problems Active Problems: Problem Status Onset Code Radial fracture Acute 02/13/25 S52.90XA Trochanteric bursitis, left hip Acute M70.62 GERD (gastroesophageal reflux disease) Chronic K21.9 Spinal cord stimulator status Acute Z96.89 Nicotine dependence Acute F17.200 Hypothyroidism Chronic E03.9 Essential thrombocythemia Acute D47.3 Asthma Chronic J45.909 Medical History Medical History (Updated 03/01/25 @ 11:02 by FIDEL Bolanos) Varicose veins of both lower extremities Sprain of left knee Sprain of left hip Sinusitis Disorder of sacroiliac joint Postoperative hypothyroidism s/p radiation Piriformis syndrome Perforation of tympanic membrane in adult Knee pain, left Osteoporosis Degenerative disc disease Orthostatic hypotension pt. states this is cleared up Smoker Migraine Low blood pressure Loss of appetite Piriformis syndrome of left side Intestinal adhes w/ obst Insomnia Incisional hernia Acute hip pain, bilateral Headache History of gastrointestinal disorder Radial neck fracture Elevated blood-pressure reading without diagnosis of hypertension Dizziness Difficulty speaking History of depression of life partner Closed fracture of left humerus Acute bursitis of right shoulder Arthropathy of both sacroiliac joints Anxiety Anisocytosis Anemia Hypothyroidism (acquired) Vitamin D deficiency Varicose veins of anus or rectum Thrombosis Sciatica Restless legs Postprocedural septic shock Migraine without aura Low back pain Dysphagia Depression Dental caries Chronic pain Galeano involving less than 10% of body surface Anxiety disorder Surgical History Surgical History (Updated 12/03/24 @ 08:54 by FIDEL Bolanos) Status post total replacement of left hip (10/23/24) s/p conversion hip arthroplasty: 10/23/24 History of hemiarthroplasty of left hip (~09/2023) Bupivacaine only injection under ultrasound: 08/31/2024 History of total left knee replacement (08/02/23) History of vein stripping DOS: 05/14/16; 09/24/16 S/P insertion of spinal cord stimulator 02/11/17 Pt reports it was removed in 2019 Hx of colonoscopy (~04/2024) History of delivery History of appendectomy History of nasal septoplasty dos 09/01/04 Hx of endoscopy (~04/2024) 07/02/20 12/11/20 03/26/21 H/O exploratory laparotomy pt estimates total of ~10 procedures dos 04/20/21, 07/30/21, 01/29/22 H/O ventral hernia repair dos 06/09/22 History of esophagogastroduodenoscopy (EGD) (~04/2024) and closure of duodenal fistula (02/09/23) History of splenectomy Lacerated liver Tobacco Smoking/Tobacco Use Status: Former Tobacco Use Alcohol Alcohol Intake: current Alcohol intake frequency: a few times a week Alcohol type: beer Substance Use Substance use: Never Substance use type: does not use Vital Signs and Lab Results Lab Results Blood Type / Crossmatch: No Data to Display Complete Blood Count: No Data to Display Complete Metabolic Panel: No Data to Display Liver Function Panel: No Data to Display Coagulation Panel: No Data to Display Cardiac Panel: No Data to Display Arterial Blood Gas: No Data to Display Venous Blood Gas: No Data to Display Pancreas Panel: No Data to Display Thyroid Panel: No Data to Display Infectious Disease: No Data to Display Blood Cultures: No Data to Display Toxicology Panel: No Data to Display Imaging and Studies Imaging and Studies Study information below may be from another EMR and interpreted by another provider. Please see original notes in EMR for more complete details. EKG Summary: 06/15: sinus Anesthesia Assessment and Plan Anesthesia History Personal History: No History of Anesthesia Complications Family History: No Family History of Anesthesia Complications Exercise Tolerance Exercise Tolerance: Metabolic Equivalents>4 Pertinent Negatives Pertinent Negatives: No Symptoms of GERD ((+) GERD, Active Rx) Cardiac & Pulmonary Exam Cardiac Exam: Normal S1/S2 Heart Sounds Pulmonary Exam: Clear Bilateral Breath Sounds (smoker) Implantable Cardiac Device Does patient have a Pacemaker or an ICD?: No Airway Exam Known Difficult Airway: No Mallampati Class: 2 Mouth Opening: Normal (> 3cm) Thyromental Distance: Greater than 3 cm Neck Range of Motion: Full ROM Neck Circumference: Normal Teeth Condition: Generalized Poor Dentition, Loose or Chipped and Removable Dentures/Plates Upper ASA Classification ASA Score: ASA 3 Emergency Case?: No NPO Status NPO Status: NPO Clears >2 hours, Solids >8 hours Anesthesia Plan Resuscitation Status: Full Code Anesthesia Technique: General Anesthesia Airway Planned: LMA Monitors Used: Standard Monitors and SedLine
[2025-03-29] MEDS: Acetaminophen 500 MG TAB 1000 MG PO (10:15)
--- NOTE | 2025-03-29 10:41 | HPE_ITS ---
Assessment and Plan Assessment and plan (1) Closed fracture of right distal radius: Status: Acute Assessment and plan: Alix is a 74-year-old female [id number], who has a intra-articular distal radius fracture which unfortunately has continued loss of reduction, signs of delayed union, and new onset of acute carpal tunnel syndrome. Given these findings, I recommend we proceed with fracture fixation. There is some early healing potentially but we should be able to move this fracture fragment regardless. We can reduce the fracture fragment and then also perform a carpal tunnel release given her ongoing carpal tunnel symptoms. I discussed the tentacle details of the surgery with her and her daughter. I discussed the risk to include bleeding, infection, pain, stiffness, damage to nerves and vessels, damage to muscles and tendons, hardware failure, hardware prominence, loss of reduction, nonunion, nonunion, persistent nerve symptoms, need for repeat procedures. Despite these risk, she elects to proceed. History of Present Illness History of Present Illness Chief Complaint: Right distal radius fracture delayed union with carpal tunnel syndrome Narrative: Alix is a 74-year-old [id number] female who had a fall about 6 weeks ago onto the outstretched right hand. She had a distal radius fracture with some angulation. She elected at that time to treat this nonoperatively. Unfortunately, she is continue to have some pain discomfort which worsened over the past week with new nerve symptoms. She was seen today in the office where x-rays demonstrated worsening angulation compared to 4 weeks ago along with clinical signs of carpal tunnel syndrome. I therefore recommended proceeding with distal radius fixation as well as carpal tunnel release. Otherwise, she denies any significant changes to her medical history or health. She has no recent illness. She underwent a left hip replacement, converting from a failed hip fracture treatment, this past fall and did very well from that. Review of Systems All systems reviewed & are unremarkable except as noted in HPI and below PFSH All Active Problems (Updated 03/29/25 @ 10:47 by Kenrick Valencia MD) Closed fracture of right distal radius (Acute) Radial fracture (Acute 02/13/25) RIGHT Trochanteric bursitis, left hip (Acute) Most recent Depo-Medrol injection: 09/12/2023 GERD (gastroesophageal reflux disease) (Chronic) Spinal cord stimulator status (Acute) Nicotine dependence (Acute) Hypothyroidism (Chronic) Essential thrombocythemia (Acute) Asthma (Chronic) Medical History Varicose veins of both lower extremities Sprain of left knee Sprain of left hip Sinusitis Disorder of sacroiliac joint Postoperative hypothyroidism s/p radiation Piriformis syndrome Perforation of tympanic membrane in adult Knee pain, left Osteoporosis Degenerative disc disease Orthostatic hypotension pt. states this is cleared up Smoker Migraine Low blood pressure Loss of appetite Piriformis syndrome of left side Intestinal adhes w/ obst Insomnia Incisional hernia Acute hip pain, bilateral Headache History of gastrointestinal disorder Radial neck fracture Elevated blood-pressure reading without diagnosis of hypertension Dizziness Difficulty speaking History of depression of life partner Closed fracture of left humerus Acute bursitis of right shoulder Arthropathy of both sacroiliac joints Anxiety Anisocytosis Anemia Hypothyroidism (acquired) Vitamin D deficiency Varicose veins of anus or rectum Thrombosis Sciatica Restless legs Postprocedural septic shock Migraine without aura Low back pain Dysphagia Depression Dental caries Chronic pain Galeano involving less than 10% of body surface Anxiety disorder Surgical History Status post total replacement of left hip (10/23/24) s/p conversion hip arthroplasty: 10/23/24 History of hemiarthroplasty of left hip (~09/2023) Bupivacaine only injection under ultrasound: 08/31/2024 History of total left knee replacement (08/02/23) History of vein stripping DOS: 05/14/16; 09/24/16 S/P insertion of spinal cord stimulator 02/11/17 Pt reports it was removed in 2019 Hx of colonoscopy (~04/2024) History of delivery History of appendectomy History of nasal septoplasty dos 09/01/04 Hx of endoscopy (~04/2024) 07/02/20 12/11/20 03/26/21 H/O exploratory laparotomy pt estimates total of ~10 procedures dos 04/20/21, 07/30/21, 01/29/22 H/O ventral hernia repair dos 06/09/22 History of esophagogastroduodenoscopy (EGD) (~04/2024) and closure of duodenal fistula (02/09/23) History of splenectomy Lacerated liver Social History Smoking/Tobacco Use Status: Current every day Tobacco Type: cigarettes Smoking risk assessment performed?: Yes Alcohol Intake: current Alcohol Intake frequency: a few times a week Alcohol type: beer Drug use: Never Substance use type: does not use Housing: house Additional [facility] Med[facility] Allergies and Home Medications Allergies Allergy/AdvReac Type Severity Reaction Status Date / Time No Known Allergies Allergy Verified 03/29/25 09:59 Home Medications ?Medication ?Instructions ?Recorded ?Confirmed ?Type albuterol sulfate 90 mcg/actuation 2 puff inhalation Q4H PRN 03/16/23 03/29/25 History aerosol inhaler (Ventolin HFA) cyclobenzaprine 5 mg tablet 5 mg PO TID PRN 03/16/23 03/29/25 History levothyroxine 125 mcg capsule 125 mcg PO HS 03/16/23 03/29/25 History ropinirole 2 mg tablet 4 mg PO HS 03/16/23 03/29/25 History vit 1 cap PO HS 03/16/23 03/29/25 History C,E,zinc,Ex-glxzf-3-lutein-zeaxanthin 250 mg-2.5 mg-0.5 mg capsule ondansetron 4 mg disintegrating 4 mg PO Q6H 07/19/23 03/29/25 History tablet butalbital 50 mg-acetaminophen 325 1 cap PO Q4H PRN 08/06/24 03/29/25 History mg-caffeine 40 mg-codeine 30 mg cap cholecalciferol (vitamin D3) 1,250 1,250 mcg PO QWEEK 08/06/24 03/29/25 History mcg (50,000 unit) capsule gabapentin 300 mg capsule 600 mg PO BID 08/06/24 03/29/25 History magnesium oxide 400 mg PO DAILY 08/06/24 03/29/25 History pantoprazole 40 mg tablet,delayed 40 mg PO BID 08/06/24 03/29/25 History release trazodone 100 mg tablet 50 mg PO QHS 08/06/24 03/29/25 History lorazepam 2 mg tablet 2 mg PO HS MAY REPEAT X1 10/11/24 03/29/25 History acetaminophen 500 mg tablet 1,000 mg (2 x 500 mg) PO Q8H PRN 10/23/24 03/29/25 Rx pain #90 tabs docusate sodium 100 mg capsule 100 mg PO BID #30 caps 10/23/24 03/29/25 Rx (Colace) propranolol 20 mg tablet 20 mg PO BID 10/23/24 03/29/25 History oxycodone 5 mg tablet 5 mg PO BID PRN pain #20 tabs 11/15/24 03/29/25 Rx atorvastatin 80 mg tablet 40 mg PO DAILY 03/01/25 03/29/25 History celecoxib 200 mg capsule See Rx Instructions .Route 03/06/25 03/29/25 Rx .COMPLEX #60 caps losartan 25 mg tablet mg 03/29/25 History Exam Const General: cooperative, healthy appearing, comfortable and no acute distress Resp Effort & Inspection: normal respiratory effort Auscultation: clear to auscultation bilaterally Cardio Rate: regular rate Rhythm: regular rhythm Extrem Other: Evaluation of the right hand shows swelling and some deformity, prominence dorsally. There are some areas of resolving ecchymosis but no break in the skin. She has decree sensation in the median nerve distribution. There is pain to palpation about the carpal tunnel as well as the distal radius. She is able demonstrate active range of motion with no significant pain. However, any added resistance or passive motion causes pain about the right distal radius and wrist. Palpable radial pulse. Intact sensation over the superficial radial, radial, and ulnar nerve. Results Imaging Imaging Studies: X-ray of the right wrist performed a few days ago at [facility] shows interval displacement in the coronal plane of the distal radius there is now approximately 22 to 23 degrees of dorsal tilt with some comminution seen dorsally and involving the radial styloid. A repeat lateral from today in the office actually seems to show that the dorsal tilt may be closer to 30 degrees 27 to 28 degrees based on the projection. Previous x-rays performed did show the comminution of the radial styloid piece but dorsal tilt was more on the 16 to 17 degree side. There does seem to be some increasing sclerosis at the fracture line although it still visible on the x-rays. There is no callus formation. Last Vital Signs Temp 36.3 C L 03/29/25 10:07 Pulse 81 03/29/25 10:07 Resp 20 03/29/25 10:07 BP 193/101 H 03/29/25 10:07 Pulse Ox 99 03/29/25 10:07
--- NOTE | 2025-03-29 10:54 | W.PM.DSUDISC ---
Date of service: 03/29/25 Discharge Plan Disposition Patient Disposition: Home Condition: Improving Discharge Details Reason For Visit: Right Distal Radius Fracture Attending Provider: Kenrick Valencia Primary Care Provider: LEXA STEVENS Home Meds and New Rx's Prescriptions: Continued magnesium oxide 400 mg magnesium tablet 400 mg PO DAILY cholecalciferol (vitamin D3) 1,250 mcg (50,000 unit) capsule 1,250 mcg PO QWEEK pantoprazole 40 mg tablet,delayed release (DR/EC) 40 mg PO BID cvgapkqvse-lzsnwdiviu-zia-cod [id number] mg capsule 1 cap PO Q4H PRN atorvastatin 80 mg tablet 40 mg PO DAILY lorazepam 2 mg tablet 2 mg PO HS MAY REPEAT X1 Patient Comments: 2mg Daily HS and second if needed cyclobenzaprine 5 mg tablet 5 mg PO TID PRN levothyroxine 125 mcg capsule 125 mcg PO HS Rx Instructions: Pt. states she takes it HS vit C,E,Zn,Wz-zwkhi7-wna-zeax 250-2.5-0.5 mg capsule 1 cap PO HS ropinirole 2 mg tablet 4 mg PO HS albuterol sulfate [Ventolin HFA] 90 mcg/actuation HFA aerosol inhaler 2 puff inhalation Q4H PRN ondansetron 4 mg tablet,disintegrating 4 mg PO Q6H gabapentin 300 mg capsule 600 mg PO BID trazodone 100 mg tablet 50 mg PO QHS propranolol 20 mg tablet 20 mg PO BID Patient Comments: TAKE ONE TABLET BY MOUTH TWICE A DAY docusate sodium [Colace] 100 mg capsule 100 mg PO BID Qty: 30 0RF losartan 25 mg tablet Patient Comments: TAKE ONE TABLET BY MOUTH EVERY DAY 03/29/25: 50mg per pt celecoxib 200 mg capsule See Rx Instructions .ROUTE .COMPLEX Qty: 60 0RF Dose Instruction: TAKE ONE CAPSULE BY MOUTH TWICE A DAY NEEDED FOR PAIN AND INFLAMMATION Rx Instructions: TAKE ONE CAPSULE BY MOUTH TWICE A DAY NEEDED FOR PAIN AND INFLAMMATION acetaminophen 500 mg tablet 1,000 mg PO Q8H PRN Qty: 90 0RF Rx Instructions: Take two tablets up to every 8 hours as needed for pain Changed oxycodone 5 mg tablet 5 mg PO Q6H PRN MDD 2 tabs PRN (Reason: pain) Qty: 10 0RF Rx Instructions: Take one tablet up twice a day as needed for severe postoperative pain Discharge Instructions Additional Instructions: Wrist Fracture Fixation Discharge Instructions Activity: You should keep the hand/wrist elevated as much as possible for the first few days. You may use the other fingers as tolerated but avoid trying to do too much too soon. You may perform light activities with the splint in place. Dressing/Cast: Your splint should stay in place at all times. Do NOT get it wet. You may loosen the PHILLIP wrap if you feel it is too tight and then rewrap more loosely. Medications: - You should take Tylenol and Celecoxib for baseline pain control. - You have been prescribed a stronger pain medication, Oxycodone, for breakthrough pain. - You may apply ice over the wrist, just double bag so it doesn't get wet. Follow-up: 10-14 days Equipment/Supplies: Splint Activity:: Elevate Remove Dressings/Wound Care:: Do Not Remove Shower/Bathe:: Cover Diet:: As Tolerated Discharge Orders Discharge Orders: Discharge Order (Routine); Ordered 03/29/25 Ordered By: Kenrick Valencia DS: Diagnosis Discharge Diagnosis (1) Closed fracture of right distal radius: Status: Acute
[2025-03-29] MEDS: Lactated Ringers 1,000 ML 80 ML IV (11:05)
[2025-03-29] MEDS: ceFAZolin 2 GM/50 ML BAG IVPB (11:20)
[2025-03-29] MEDS: Bupivacaine 0.5% Pres-Free W/EPI 30 ML VIAL (11:38)
--- NOTE | 2025-03-29 11:46 | W.ANESNERVE ---
Nerve Block Single Injection Procedure Date and Time Date Performed: 03/29/25 Procedure Start: 10:56 Location Where Procedure Performed Procedure Location: Day Surgery Unit Reason Performed: Postoperative Analgesia Requesting Provider: Kenrick Valencia Timeout Performed Timeout Performed: Yes Monitoring Used ECG, Blood Pressure, SpO2 and See EMR for corresponding vital signs Sterility Sterility: Hand Hygiene, Surgical Cap, Surgical Mask, Sterile Gloves, Eye Protection and Chlorhexidine Sedation Given During Procedure Sedation Given (Indicate Dose Given): Versed IV Dose:: 2mg IVP Patient Mental Status Patient Mental Status: Sedate with meaningful communication Nerve Block 1st Nerve Block: Laterality: Right Block Type: Supraclavicular Ultrasound Image Saved?: Yes Needle / Catheter Used: 100mm SonoPlex II Local Anesthetic Bolus (Indicate Dose Given): Lidocaine used for local infiltration of skin, Injected in 3-5ml increments after negative blood aspiration and Ropivacaine 0.5% Dose:: 0.5%/20cc (100mg) Additives (Indicate Dose Given): Epinephrine to make 1:200,000 (5mcg/ml) Dose:: 100mcg/20cc (5mcg/cc) Ultrasound: Sterile probe cover and gel used Nerve Stimulator: Not Used Paresthesia: None Procedure Tolerated: No Complications and Patient tolerated well Procedure Outcome: Successful Performed By: Giorgi Hirsch
--- NOTE | 2025-03-29 12:50 | ROE_ITS ---
Operative Note Operative Note PRE-OP DIAGNOSIS: Right Distal Radius Fracture Malunion and Carpal Tunnel Syndrome POST-OP DIAGNOSIS: same PROCEDURE: Open Reduction and Internal Fixation of Right Distal Radius Open Carpal Tunnel Release - RIGHT SURGEON: Kenrick Valencia TERRITORY REPRESENTATIVE: Kingsley Lobato ANESTHESIA TYPE: General LMA/ETT and Primary Nerve Block Refer to Anesthesia Record ESTIMATED BLOOD LOSS: 5 PATHOLOGY: none sent TOURNIQUET TIME: 65 COMPLICATIONS: None Patient was transported to: PACU Patient's condition: stable Indications: Alix is a 74 year old right-hand dominant female who I have seen for a distal radius fracture. Given the deformity, displacement, fracture pattern, and effect on daily function, I recommended surgical fixation. I reviewed the risk of the procedure to include bleeding, infection co-pay, stiffness, damage to nerves and vessels, damage to muscles and tendons, malunion, nonunion, hardware prominence, tendon rupture, need for repeat procedures. Despite these risks, the patient elected to proceed. Findings: There is a distal radius fracture which had 2 articular segments. The previous fracture line was visible and there was some slight motion although it was not grossly nonhealed. There was notable scarring and fibrous tissue dorsally which was released with an extended FCR approach. It was able to be reduced and fixed with a Synthes volar locking plate. An open carpal tunnel approach was performed as well. Procedure Description: Tri was greeted in the preoperative holding area. The correct patient and site was confirmed and marked. The history and physical was updated. The consent was reviewed the patient and signed. The patient was taken to the [facility] for administration of regional anesthetic, supraclavicular block. The patient was taken to the operating room and placed in the supine position. All bony problems were well-padded. The side arm was placed onto a radiolucent hand table. A nonsterile tourniquet was placed high up on the arm. Prophylactic antibiotics in the form of cefazolin were administered. The rightt arm was prepped with ChloraPrep and draped in a standard fashion. A timeout was performed for safe surgery. A standard longitudinal incision was made overlying the flexor carpi radialis tendon starting at the distal wrist crease and moving proximally, angling obliquely over the flexor creases and then extending onto the palm in line with the radial border of the fourth ray for the carpal tunnel portion of the procedure. This area was then anesthetized with 0.25% bupivacaine. The skin was incised sharply. The flexor carpi radialis tendon and its sheath is identified. The sheath was opened. The tendon was moved ulnarly in the floor of the sheath was incised. Blunt dissection the flexor pollicis longus muscle belly and tendon were also made radially exposing the pronator quadratus and the distal radius. The printer quadratus was elevated with an ulnar-based flap. This exposed the volar distal radius and the fracture. A ordonez elevator was used for full exposure of the volar surface of the distal radius. The primary fracture line was exposed. The fracture line was visible although there was fibrous tissue. I used a rongeur to remove some the fibrous tissue where the fracture line is more visible. However, there was some slight motion with manipulation of the distal radius but there was no gross motion. I then proceeded with an extended FCR approach, elevating off the first sensor compartment and the soft tissues from the radial border of the wrist. I was able to place a lobster-claw clamp on the proximal shaft fragment and slowly rotated out of the hand elevating off scar tissue and fibrous tissue from the dorsum of the distal radius. Now that the fragment was mobile, is able to perform a reduction but showed significant improvement in the position of the articular block. There was also a fracture line extending into the radial styloid. This remained stable throughout the entire manipulation. Therefore, I did not free this segment up given that it already healed in this position as I thought this would cause more damage than benefit. I then performed a closed reduction. Using gentle traction and fracture manipulation, this reduction was held. Fluoroscopic images were used to confirm adequate reduction. An appropriately sized Synthes volar locking plate was then placed onto the bony surface of the distal radius. Was then held there with a distal radius clamp sandwiching the plate to the distal segment. A single K wire was placed through the distal end. Fluoroscopy was once again used to confirm appropriate positioning of the plate on the distal radius. A reduction K wire was placed into the slotted hole on the shaft but not tightened all the way to allow for manipulation of the distal segment onto the proximal shaft. A single nonlocking screw was placed to the distal portion of the plate securing the plate against the bone of the distal radial metaphysis. Once again, the plate was evaluated to make sure it was aligned appropriately. The single screw was also checked to make sure it was in appropriate positioning for trajectory of future screws. The remainder of the screws within the volar locking plate were filled with locking screws. These were made sure not to penetrate the dorsal cortex. Once these were applied the proximal portion of the plate was further reduced down onto the shaft, which further reduce the distal segment. This was held in position with a single 2.4 mm cortex screw. Fluoroscopy was then used against confirm appropriate reduction. Nonlocking screws were placed within the 3 shaft screw holes. Final x-rays were obtained which demonstrated adequate reduction and positioning of hardware. The dorsal sunrise view was also obtained to ensure correct sizing of screws. The wound was then thoroughly irrigated. The pronator quadratus was reapproximated with a 2-0 Vicryl. Attention was then turned to the carpal tunnel part of the procedure. The subcutaneous tissue overlying the flexor creases and the palm were bluntly dissected and crossing venous branches were cauterized. Care was taken not to cut anything sharp in this area for potential passing branch of the palmar tenia's nerve. Fibers of the palmar's longus were identified and I worked ulnar to this. Palmar fascia was identified which was entered. A [place] was placed into the carpal tunnel. I then released the transverse carpal ligament starting distal to proximal. Elevation of the soft tissues overlying the transverse carpal ligament were performed to make sure there is no injury to crossing b ranches. This was taken through the entire length of the transverse carpal ligament and the carpal tunnel. The nerve is visible deep which showed no significant signs of trauma or damage. Proximal dissection was also extended into there was no pressure on the median nerve. Irrigation performed the deep tissues. The tourniquet was released after 65 minutes. There was no significant bleeding. There is no arterial injury. The fingers were warm and well-perfused. The deep dermal layer was closed with a 2-0 Vicryl. The skin was closed with 4-0 nylon. The wound was dressed with Xeroform, 4 x 4's, web roll. A short arm splint was applied. At the end the case all counts are correct. Patient was transferred back to the PACU in stable condition. Date of Procedure: 03/29/25
--- NOTE | 2025-03-29 13:44 | W.ANESPOSTOP ---
Postoperative Evaluation Date, Time and Location Date Performed: 03/29/25 Time Performed: 13:44 Patient Location: PACU Vital Signs Most Recent Imported Vital Signs: Most Recent Vital Signs Temp Pulse Resp BP Pulse Ox 36.5 C 70 11 L 142/75 H 98 03/29/25 13:34 03/29/25 13:25 03/29/25 13:25 03/29/25 13:25 03/29/25 13:34 Pain Score Most Recent Pain Score: Most Recent Pain Score Pain Level 6 03/29/25 13:34 Assessment Mental Status: Awake (Alert & Oriented to Patient Baseline) Airway and Respiratory Function: Patent airway with normal (patient baseline) respiratory exam Cardiovascular Function: Hemodynamically Stable Hydration Status: Adequately Hydrated Nausea & Vomiting: No Nausea or Vomiting Pain: Pt. Denies Any Pain Peripheral Nerve Block: Patient did not receive a nerve block
[2025-03-29] MEDS: oxyCODONE 5 MG TAB PO (14:06)
== END 2025-03-29 15:30 | disposition home or self-care (01) ==
PROVIDERS: PCP Family Medicine; Visit Provider Student in an Organized Health Care Education/Training Program
PROC: (CPT 25400; principal; 2025-03-29 10:00)
DX: S52.501P Unspecified fracture of the lower end of right radius, subsequent encounter for closed fracture with malunion (principal); G56.01 Carpal tunnel syndrome, right upper limb; X58.XXXD Exposure to other specified factors, subsequent encounter
CPT/HCPCS: 25400; 64721; 64415; 76000; 99213; 73100; J0171; J0690; J1100; J2250; J2405; J2704

== ENCOUNTER 2025-03-29 11:23 | Outpatient (CLI) | payer MEDICARE, SELFPAY ==
--- NOTE | 2025-03-29 08:30 | DI.RAD_ITS ---
Exam(s) XR WRIST RT LIMITED EXAM: XR WRIST RT LIMITED CLINICAL HISTORY: distal radius fracture. TECHNIQUE: 2D digital imaging was performed of the right wrist. One views were obtained. Lateral v iews were obtained. COMPARISON: CR XR WRIST RT LIMITED from 03/01/2025 CR XR WRIST 2V RT from 03/25/2025 FINDINGS: This is a limited examination. A single lateral view is obtained. Compared to the prior examination from 03/01/2025 and 03/25/2025 there does not appear to be any significant change in alignment on the la teral view of the distal right radial fracture. The fracture appears impacted. IMPRESSION: Single lateral view is obtained. No significant change in alignment of the distal radial fracture co mpared to the examination from 03/25/2025. DATA REPOSITORY: RADIATION DOSE DELIVERED:
== END 2025-03-29 11:24 | disposition home or self-care (01) ==
LOC: DIORS 11:23
PROVIDERS: PCP Family Medicine; Referring Provider Family Medicine; Visit Provider Physician Assistant
DX: S52.501A Unspecified fracture of the lower end of right radius, initial encounter for closed fracture (principal); X58.XXXA Exposure to other specified factors, initial encounter
CPT/HCPCS: 99213; 73100

== ENCOUNTER 2025-04-12 08:44 | Outpatient (CLI) | payer MEDICARE, SELFPAY ==
--- NOTE | 2025-04-12 08:41 | DI.RAD_ITS ---
Exam(s) XR WRIST RT LIMITED EXAM: XR WRIST RT LIMITED INDICATION: 1ST POST OP S/P ORIF R DISTAL RAD. COMPARISON: CR XR WRIST RT LIMITED from 03/29/2025 CR XR WRIST RT LIMITED from 03/29/2025 TECHNIQUE: 2D digital imaging was performed. Two views. FINDINGS: There is stable alignment of the volar fixation plate and distal radial and ulnar styloid fractures. Soft tissue swelling remains present. DATA REPOSITORY: RADIATION DOSE DELIVERED:
== END 2025-04-12 08:45 | disposition home or self-care (01) ==
LOC: DIORS 08:45
PROVIDERS: PCP Family Medicine; Referring Provider Family Medicine; Visit Provider Physician Assistant
DX: S52.501A Unspecified fracture of the lower end of right radius, initial encounter for closed fracture (principal); S52.611A Displaced fracture of right ulna styloid process, initial encounter for closed fracture; X58.XXXA Exposure to other specified factors, initial encounter
CPT/HCPCS: 99024; 29125; 73100

== ENCOUNTER 2025-05-09 09:07 | Outpatient (CLI) | payer MEDICARE, SELFPAY ==
--- NOTE | 2025-05-09 08:45 | DI.RAD_ITS ---
Exam(s) XR WRIST RT LIMITED EXAM: XR WRIST RT LIMITED CLINICAL HISTORY: S/P ORIF R DISTAL RAD FX. TECHNIQUE: 2D digital imaging was performed of the right wrist. Two views were obtained. PA and lateral views were obtained. COMPARISON: CR XR WRIST RT LIMITED from 04/12/2025 FINDINGS: BONES: There has been no change in alignment of the ulnar styloid process fracture. The fracture line is less well visualized suggesting some interval healing. There is again seen a sideplate and screws transfixing the distal right radial fracture. Orthopedic hardware and fracture components are stable. No bony destructive lesion is seen. JOINTS: The carpal bones are normally aligned. SOFT TISSUE: Normal. IMPRESSION: Stable distal right radial and ulnar fractures. DATA REPOSITORY: RADIATION DOSE DELIVERED:
== END 2025-05-09 09:08 | disposition home or self-care (01) ==
LOC: DIORS 09:07
PROVIDERS: PCP Family Medicine; Visit Provider Student in an Organized Health Care Education/Training Program
DX: S52.501D Unspecified fracture of the lower end of right radius, subsequent encounter for closed fracture with routine healing (principal); S52.611D Displaced fracture of right ulna styloid process, subsequent encounter for closed fracture with routine healing; X58.XXXD Exposure to other specified factors, subsequent encounter
CPT/HCPCS: 99024; 73100

== ENCOUNTER → 2025-08-08 07:56 | Outpatient (BNVA) | payer MEDICARE, SELFPAY | PROVIDERS: PCP Family Medicine; Referring Provider Family Medicine; Visit Provider Student in an Organized Health Care Education/Training Program | DX: M70.61 Trochanteric bursitis, right hip (principal); M70.62 Trochanteric bursitis, left hip | CPT/HCPCS: 20610; J1010 ==